=== PATIENT | female | born 1985 | race Caucasian/White ===

== ENCOUNTER → 2018-05-06 | Outpatient (CLI) | payer OTHER ==
[~2018-05-06] MED LIST: ACET325 PO; ACET650SUP; ALBU.083IS IH; ALBU2.5V5 NEB; ALBU3IS INH; ARTIFICIAL TEAR15 ML BOTHEYES; ARTTEAOPSO; ASPI81CH PO; AZIT250 PO; BACL10; BACL10 PO; BASAGLAR K100 UNIT/1 SC; BISA10S PR; BISACODYL PO; CALCA500CH PO; CALCAVITDA; CRANBERRY; CRANBERRY CAPSULE; CYCLOBENZAPRINE PO; Calcium + Vita1 EACH PO; DICL250 PO; DOC250 PT; DOCU100; DOCUSATE SODIUM; FEXO180; FEXPSEER; FIBE4P PO; FLUC150A PO; FURO40; Fruity C250 MG PO; GLYMET1.25 PO; HYDCHL25; Humalog100 UNIT/1 SC; INSR10I SC; INSULANPEN; LACT; LORA10ER PO; LORATIDINE PO; MEDR10 PO; METFORMIN PO; METO10SY PT; METR500; MIRALAX17 GM PO; MOM; MULVITMINF PO; Milk Of Ma400 MG/5 M PO; NITR100CA PO; NYSTATIN1 EAC1 TOP; Novolog100 UNIT/2 SC; OFLO.3OTSO AU; PARO10; POTCHL10ER; POTCHL20ER; SENN187 PO; SODPHOSO; TAZICEF IV; TOBDEXOPO BOTHEYES; TOBRAMYCIN IV; TRIA55OI; TRIAOIA; TUSSIN DM; VANCOMYCIN IV; WARF10 PT; XARELTO10 MG PO; [UNRECOGNIZED DRUG - OTHER]; [UNRECOGNIZED DRUG - OTHER] PO
[2018-05-06 10:56] LABS: Hematocrit 47.5 % (33.0-51.0); Hemoglobin 12.8 g/dL (11.5-16.0); Mean Corpuscular HGB 19.8 pg (26.0-34.0); Mean Corpuscular HGB Conc 26.9 g/dL (31.5-36.5); Mean Corpuscular Volume 73 fL (80-100); Platelet Count 327 K/mm3 (150-400); RDW Coefficient Variation 20.4 % (11.7-14.2); RDW Standard Deviation 49.9 fL (35.1-46.3); Red Blood Cell Count 6.47 M/mm3 (3.80-5.20); White Blood Cell Count 11.76 K/mm3 (4.00-11.30)
[2018-05-06 11:05] LABS: Anion Gap 9 mmol/L (6-16); Blood Urea Nitrogen 21 mg/dL (8-24); Bun/Creatinine Ratio 34.7 (12.0-20.0); CO2, Blood 28 mmol/L (21-32); Calcium, Blood 9.3 mg/dL (8.5-10.1); Chloride, Blood 111 mmol/L (98-108); Creatinine, Blood 0.61 mg/dL (0.40-1.00); Glomerular Filtration Rate >60 (60-); Glucose, Blood 437 mg/dL (70-99); Potassium, Blood 3.8 mmol/L (3.5-5.5); Sodium, Blood 148 mmol/L (136-145)
== END | disposition home or self-care (01) ==
LOC: LAB UVN 10:21 → EDSTATUS 15:15
PROVIDERS: Family Medicine
DX: I63.9 Cerebral infarction, unspecified (principal); D64.9 Anemia, unspecified; J06.9 Acute upper respiratory infection, unspecified
CPT/HCPCS: 80048; 85027

== ENCOUNTER → 2018-05-07 | Outpatient (CLI) | payer OTHER ==
[2018-05-07 09:54] LABS: Bilirubin, Urine Neg (Neg); Blood, Urine 1+ (Neg); Glucose Qualitative, Urine 4+ (Neg); Ketones, Urine Neg (Neg); Leukocyte Esterase, Urine 2+ (Neg); Nitrite, Urine Pos (Neg); Protein, Urine 1+ (Neg); Specific Gravity, Urine 1.015 (1.003-1.022); Urobilinogen, Urine NORM (Normal)
[2018-05-07 10:03] LABS: Appearance, Urine Cloudy (Clear); Color, Urine Yellow (P-Yellow)
[2018-05-07 10:04] LABS: White Blood Cells, Urine 25-50 /hpf (0-5)
[2018-05-07 10:05] LABS: Bacteria Many /hpf; Red Blood Cells, Urine 0-2 /hpf (0-2); Squamous Epithelial Cells Few /hpf (Few)
== END | disposition home or self-care (01) ==
LOC: LAB UVN 09:27 → EDSTATUS 15:17
PROVIDERS: Family Medicine
DX: N18.9 Chronic kidney disease, unspecified (principal)
CPT/HCPCS: 81001; 87077; 87086; 87186

== ENCOUNTER 2018-05-11 13:09 | Inpatient (IN) | payer OTHER ==
[~2018-05-11] VITALS: Ht 172.7 cm; Wt 94.5 kg
[~2018-05-11 13:09] MED LIST changes: -ACET325 PO; -ALBU2.5V5 NEB; -ARTIFICIAL TEAR15 ML BOTHEYES; -BASAGLAR K100 UNIT/1 SC; -BISA10S PR; -CYCLOBENZAPRINE PO; -Fruity C250 MG PO; -Humalog100 UNIT/1 SC; -INSR10I SC; -LORATIDINE PO; -MIRALAX17 GM PO; -Milk Of Ma400 MG/5 M PO; -NITR100CA PO; -NYSTATIN1 EAC1 TOP; -Novolog100 UNIT/2 SC; -XARELTO10 MG PO; -[UNRECOGNIZED DRUG - OTHER] PO
[2018-05-11] MEDS ORDERED: LORATIDINE PO (13:32)
[2018-05-11] MEDS ORDERED: ARTIFICIAL TEAR15 ML BOTHEYES (13:35)
[2018-05-11] MEDS ORDERED: CYCLOBENZAPRINE PO (13:36)
[2018-05-11] MEDS ORDERED: NITR100CA PO (13:37)
[2018-05-11] MEDS ORDERED: Fruity C250 MG PO (13:38)
[2018-05-11] MEDS ORDERED: ACET325 PO (13:38)
[2018-05-11] MEDS ORDERED: Milk Of Ma400 MG/5 M PO (13:39)
[2018-05-11] MEDS ORDERED: Novolog100 UNIT/2 SC (13:40)
[2018-05-11] MEDS ORDERED: [UNRECOGNIZED DRUG - OTHER] PO ×2 (13:41→18:10)
[2018-05-11] MEDS ORDERED: BASAGLAR K100 UNIT/1 SC (13:41)
[2018-05-11] MEDS ORDERED: Humalog100 UNIT/1 SC (13:44)
[2018-05-11 14:35] LABS: BASOPHILS ABSOLUTE AUTO 0.06 K/mm3 (0.00-0.23); BASOPHILS PERCENT AUTO 0 % (0-2); EOSINOPHILS ABSOLUTE AUTO 0.37 K/mm3 (0.00-0.68); EOSINOPHILS PERCENT AUTO 2 % (0-6); Hematocrit 45.7 % (33.0-51.0); Hemoglobin 12.4 g/dL (11.5-16.0); IMMATURE GRAN ABSOLUTE AUTO 0.06 K/mm3 (0.00-0.10); IMMATURE GRAN PERCENT AUTO 0 % (0-1); LYMPHOCYTES PERCENT AUTO 29 % (21-46); MONOCYTES ABSOLUTE AUTO 0.95 K/mm3 (0.16-1.47); MONOCYTES PERCENT AUTO 6 % (4-13); Mean Corpuscular HGB 19.9 pg (26.0-34.0); Mean Corpuscular HGB Conc 27.1 g/dL (31.5-36.5); Mean Corpuscular Volume 74 fL (80-100); Mean Platelet Volume 10.9 fL (9.1-12.4); NEUTROPHILS ABSOLUTE AUTO 10.17 K/mm3 (1.96-9.15); NEUTROPHILS PERCENT AUTO 62 % (41-73); Platelet Count 241 K/mm3 (150-400); RDW Coefficient Variation 20.1 % (11.7-14.2); RDW Standard Deviation 49.9 fL (35.1-46.3); Red Blood Cell Count 6.22 M/mm3 (3.80-5.20); White Blood Cell Count 16.41 K/mm3 (4.00-11.30)
[2018-05-11 15:12] LABS: Source, Urine Clean Catch
[2018-05-11 15:19] LABS: Alanine Aminotransfer (ALT/SGP 29 U/L (12-78); Albumin, Blood 3.1 g/dL (3.4-5.0); Albumin/Globulin Ratio 0.6 (0.8-1.8); Alk Phos 114 U/L (50-136); Anion Gap 12 mmol/L (6-16); Aspartate Aminotrans (AST/SGOT 18 U/L (12-37); Bilirubin, Total 0.2 mg/dL (0.1-1.0); Blood Urea Nitrogen 19 mg/dL (8-24); Bun/Creatinine Ratio 27.6 (12.0-20.0); CO2, Blood 25 mmol/L (21-32); Calcium, Blood 9.1 mg/dL (8.5-10.1); Chloride, Blood 113 mmol/L (98-108); Creatinine, Blood 0.69 mg/dL (0.40-1.00); Globulin, Blood 5.1 g/dL (2.2-4.0); Glomerular Filtration Rate >60 (60-); Glucose, Blood 421 mg/dL (70-99); Potassium, Blood 3.8 mmol/L (3.5-5.5); Sodium, Blood 150 mmol/L (136-145); Total Protein, Blood 8.2 g/dL (6.4-8.2)
[2018-05-11 15:33] LABS: Bilirubin, Urine Neg (Neg); Blood, Urine 2+ (Neg); Glucose Qualitative, Urine 4+ (Neg); Ketones, Urine 1+ (Neg); Leukocyte Esterase, Urine 2+ (Neg); Nitrite, Urine Neg (Neg); Protein, Urine 2+ (Neg); Urobilinogen, Urine NORM (Normal)
[2018-05-11 15:37] LABS: Appearance, Urine Hazy (Clear); Color, Urine Yellow (P-Yellow)
[2018-05-11 15:50] LABS: Bacteria Mod /hpf; Mucus Light (0-Heavy); Red Blood Cells, Urine 25-50 /hpf (0-2); Squamous Epithelial Cells Mod /hpf (Few)
[2018-05-11 15:51] LABS: White Blood Cells, Urine 25-50 /hpf (0-5)
[2018-05-11] MEDS ORDERED: BISA10S PR (18:08)
[2018-05-12 04:43] LABS: BASOPHILS ABSOLUTE AUTO 0.04 K/mm3 (0.00-0.23); BASOPHILS PERCENT AUTO 0 % (0-2); EOSINOPHILS PERCENT AUTO 4 % (0-6); Hematocrit 37.6 % (33.0-51.0); Hemoglobin 10.2 g/dL (11.5-16.0); IMMATURE GRAN ABSOLUTE AUTO 0.03 K/mm3 (0.00-0.10); IMMATURE GRAN PERCENT AUTO 0 % (0-1); LYMPHOCYTES ABSOLUTE AUTO 2.48 K/mm3 (0.84-5.20); LYMPHOCYTES PERCENT AUTO 20 % (21-46); MONOCYTES ABSOLUTE AUTO 0.58 K/mm3 (0.16-1.47); MONOCYTES PERCENT AUTO 5 % (4-13); Mean Corpuscular HGB 19.5 pg (26.0-34.0); Mean Corpuscular HGB Conc 27.1 g/dL (31.5-36.5); Mean Corpuscular Volume 72 fL (80-100); Mean Platelet Volume 10.4 fL (9.1-12.4); NEUTROPHILS ABSOLUTE AUTO 8.54 K/mm3 (1.96-9.15); NEUTROPHILS PERCENT AUTO 70 % (41-73); Platelet Count 218 K/mm3 (150-400); RDW Coefficient Variation 19.8 % (11.7-14.2); RDW Standard Deviation 48.5 fL (35.1-46.3); Red Blood Cell Count 5.23 M/mm3 (3.80-5.20); White Blood Cell Count 12.17 K/mm3 (4.00-11.30)
[2018-05-12 05:16] LABS: Anion Gap 8 mmol/L (6-16); Blood Urea Nitrogen 15 mg/dL (8-24); Bun/Creatinine Ratio 28.2 (12.0-20.0); CO2, Blood 28 mmol/L (21-32); Chloride, Blood 115 mmol/L (98-108); Creatinine, Blood 0.53 mg/dL (0.40-1.00); Glomerular Filtration Rate >60 (60-); Glucose, Blood 167 mg/dL (70-99); Potassium, Blood 3.3 mmol/L (3.5-5.5); Sodium, Blood 151 mmol/L (136-145)
[2018-05-12 17:27] LABS: Albumin, Blood 2.5 g/dL (3.4-5.0); Anion Gap 6 mmol/L (6-16); Blood Urea Nitrogen 9 mg/dL (8-24); Bun/Creatinine Ratio 15.9 (12.0-20.0); CO2, Blood 29 mmol/L (21-32); Calcium, Blood 8.9 mg/dL (8.5-10.1); Chloride, Blood 111 mmol/L (98-108); Creatinine, Blood 0.57 mg/dL (0.40-1.00); Glomerular Filtration Rate >60 (60-); Glucose, Blood 228 mg/dL (70-99); Phosphorus, Blood 2.4 mg/dL (2.5-4.9); Potassium, Blood 3.6 mmol/L (3.5-5.5); Sodium, Blood 146 mmol/L (136-145); Tobramycin, Random 0.5 ug/mL
[2018-05-12 17:34] LABS: Vancomycin, Trough 27.4 ug/mL (5.0-10.0)
[2018-05-13 05:10] LABS: BASOPHILS ABSOLUTE AUTO 0.03 K/mm3 (0.00-0.23); BASOPHILS PERCENT AUTO 0 % (0-2); EOSINOPHILS ABSOLUTE AUTO 0.58 K/mm3 (0.00-0.68); EOSINOPHILS PERCENT AUTO 6 % (0-6); Hematocrit 35.6 % (33.0-51.0); IMMATURE GRAN ABSOLUTE AUTO 0.03 K/mm3 (0.00-0.10); IMMATURE GRAN PERCENT AUTO 0 % (0-1); LYMPHOCYTES ABSOLUTE AUTO 3.15 K/mm3 (0.84-5.20); LYMPHOCYTES PERCENT AUTO 33 % (21-46); MONOCYTES ABSOLUTE AUTO 0.57 K/mm3 (0.16-1.47); MONOCYTES PERCENT AUTO 6 % (4-13); Mean Corpuscular HGB 20.2 pg (26.0-34.0); Mean Corpuscular HGB Conc 28.1 g/dL (31.5-36.5); Mean Corpuscular Volume 72 fL (80-100); NEUTROPHILS ABSOLUTE AUTO 5.13 K/mm3 (1.96-9.15); NEUTROPHILS PERCENT AUTO 54 % (41-73); Platelet Count 205 K/mm3 (150-400); RDW Coefficient Variation 19.5 % (11.7-14.2); RDW Standard Deviation 48.4 fL (35.1-46.3); Red Blood Cell Count 4.95 M/mm3 (3.80-5.20); White Blood Cell Count 9.49 K/mm3 (4.00-11.30)
[2018-05-13 05:26] LABS: Albumin, Blood 2.5 g/dL (3.4-5.0); Anion Gap 8 mmol/L (6-16); Blood Urea Nitrogen 7 mg/dL (8-24); Bun/Creatinine Ratio 13.1 (12.0-20.0); CO2, Blood 29 mmol/L (21-32); Calcium, Blood 8.6 mg/dL (8.5-10.1); Chloride, Blood 109 mmol/L (98-108); Creatinine, Blood 0.53 mg/dL (0.40-1.00); Glomerular Filtration Rate >60 (60-); Glucose, Blood 236 mg/dL (70-99); Potassium, Blood 3.5 mmol/L (3.5-5.5); Sodium, Blood 146 mmol/L (136-145)
[2018-05-13 05:32] LABS: Vancomycin, Random 12.5 ug/mL
[2018-05-13 15:34] LABS: Tobramycin, Random 0.9 ug/mL
[2018-05-14 05:37] LABS: BASOPHILS ABSOLUTE AUTO 0.03 K/mm3 (0.00-0.23); BASOPHILS PERCENT AUTO 0 % (0-2); EOSINOPHILS PERCENT AUTO 5 % (0-6); Hematocrit 35.6 % (33.0-51.0); Hemoglobin 10.3 g/dL (11.5-16.0); IMMATURE GRAN ABSOLUTE AUTO 0.02 K/mm3 (0.00-0.10); IMMATURE GRAN PERCENT AUTO 0 % (0-1); LYMPHOCYTES ABSOLUTE AUTO 2.26 K/mm3 (0.84-5.20); LYMPHOCYTES PERCENT AUTO 30 % (21-46); MONOCYTES PERCENT AUTO 7 % (4-13); Mean Corpuscular HGB 20.5 pg (26.0-34.0); Mean Corpuscular HGB Conc 28.9 g/dL (31.5-36.5); Mean Corpuscular Volume 71 fL (80-100); Mean Platelet Volume 9.8 fL (9.1-12.4); NEUTROPHILS ABSOLUTE AUTO 4.46 K/mm3 (1.96-9.15); NEUTROPHILS PERCENT AUTO 58 % (41-73); Platelet Count 182 K/mm3 (150-400); RDW Coefficient Variation 19.3 % (11.7-14.2); RDW Standard Deviation 46.7 fL (35.1-46.3); Red Blood Cell Count 5.02 M/mm3 (3.80-5.20); White Blood Cell Count 7.67 K/mm3 (4.00-11.30)
[2018-05-14 06:06] LABS: Anion Gap 8 mmol/L (6-16); Blood Urea Nitrogen 7 mg/dL (8-24); Bun/Creatinine Ratio 12.5 (12.0-20.0); CO2, Blood 26 mmol/L (21-32); Calcium, Blood 8.5 mg/dL (8.5-10.1); Chloride, Blood 109 mmol/L (98-108); Creatinine, Blood 0.56 mg/dL (0.40-1.00); Glomerular Filtration Rate >60 (60-); Glucose, Blood 235 mg/dL (70-99); Potassium, Blood 3.4 mmol/L (3.5-5.5); Sodium, Blood 143 mmol/L (136-145); Vancomycin, Trough 17.3 ug/mL (5.0-10.0)
[2018-05-15 06:55] LABS: BASOPHILS ABSOLUTE AUTO 0.03 K/mm3 (0.00-0.23); BASOPHILS PERCENT AUTO 0 % (0-2); EOSINOPHILS ABSOLUTE AUTO 0.23 K/mm3 (0.00-0.68); EOSINOPHILS PERCENT AUTO 2 % (0-6); Hematocrit 40.5 % (33.0-51.0); Hemoglobin 11.5 g/dL (11.5-16.0); IMMATURE GRAN ABSOLUTE AUTO 0.07 K/mm3 (0.00-0.10); IMMATURE GRAN PERCENT AUTO 1 % (0-1); LYMPHOCYTES PERCENT AUTO 21 % (21-46); MONOCYTES ABSOLUTE AUTO 0.62 K/mm3 (0.16-1.47); MONOCYTES PERCENT AUTO 7 % (4-13); Mean Corpuscular HGB 19.8 pg (26.0-34.0); Mean Corpuscular HGB Conc 28.4 g/dL (31.5-36.5); Mean Corpuscular Volume 70 fL (80-100); NEUTROPHILS ABSOLUTE AUTO 6.65 K/mm3 (1.96-9.15); NEUTROPHILS PERCENT AUTO 69 % (41-73); Platelet Count 159 K/mm3 (150-400); RDW Coefficient Variation 20.1 % (11.7-14.2); RDW Standard Deviation 45.8 fL (35.1-46.3); Red Blood Cell Count 5.82 M/mm3 (3.80-5.20)
[2018-05-15 07:01] LABS: Mean Platelet Volume 10.1 fL (9.1-12.4)
[2018-05-15 07:02] LABS: Anion Gap 10 mmol/L (6-16); Blood Urea Nitrogen 5 mg/dL (8-24); Bun/Creatinine Ratio 9.8 (12.0-20.0); CO2, Blood 23 mmol/L (21-32); Calcium, Blood 8.4 mg/dL (8.5-10.1); Chloride, Blood 108 mmol/L (98-108); Creatinine, Blood 0.51 mg/dL (0.40-1.00); Glomerular Filtration Rate >60 (60-); Glucose, Blood 260 mg/dL (70-99); Sodium, Blood 141 mmol/L (136-145)
[2018-05-15 20:57] LABS: Tobramycin, Trough 0.4 ug/mL (0.0-1.9)
[2018-05-15 22:34] LABS: BASOPHILS ABSOLUTE AUTO 0.03 K/mm3 (0.00-0.23); BASOPHILS PERCENT AUTO 0 % (0-2); EOSINOPHILS ABSOLUTE AUTO 0.11 K/mm3 (0.00-0.68); EOSINOPHILS PERCENT AUTO 1 % (0-6); Hematocrit 37.3 % (33.0-51.0); Hemoglobin 10.7 g/dL (11.5-16.0); IMMATURE GRAN ABSOLUTE AUTO 0.07 K/mm3 (0.00-0.10); IMMATURE GRAN PERCENT AUTO 1 % (0-1); LYMPHOCYTES ABSOLUTE AUTO 2.26 K/mm3 (0.84-5.20); LYMPHOCYTES PERCENT AUTO 19 % (21-46); MONOCYTES ABSOLUTE AUTO 0.93 K/mm3 (0.16-1.47); MONOCYTES PERCENT AUTO 8 % (4-13); Mean Corpuscular HGB 20.4 pg (26.0-34.0); Mean Corpuscular HGB Conc 28.7 g/dL (31.5-36.5); Mean Corpuscular Volume 71 fL (80-100); Mean Platelet Volume 9.9 fL (9.1-12.4); NEUTROPHILS ABSOLUTE AUTO 8.78 K/mm3 (1.96-9.15); NEUTROPHILS PERCENT AUTO 72 % (41-73); Platelet Count 212 K/mm3 (150-400); RDW Coefficient Variation 19.8 % (11.7-14.2); RDW Standard Deviation 47.2 fL (35.1-46.3); Red Blood Cell Count 5.24 M/mm3 (3.80-5.20); White Blood Cell Count 12.18 K/mm3 (4.00-11.30)
[2018-05-15 22:59] LABS: Anion Gap 8 mmol/L (6-16); Blood Urea Nitrogen 6 mg/dL (8-24); Bun/Creatinine Ratio 11.2 (12.0-20.0); CO2, Blood 27 mmol/L (21-32); Calcium, Blood 8.2 mg/dL (8.5-10.1); Chloride, Blood 105 mmol/L (98-108); Creatinine, Blood 0.54 mg/dL (0.40-1.00); Glomerular Filtration Rate >60 (60-); Glucose, Blood 192 mg/dL (70-99); Magnesium, Blood 1.6 mg/dL (1.6-2.4); Potassium, Blood 3.7 mmol/L (3.5-5.5); Sodium, Blood 140 mmol/L (136-145)
[2018-05-15 23:02] LABS: Thyroid Stimulating Hormone 0.515 uIU/mL (0.360-4.800)
[2018-05-16 05:30] LABS: Hematocrit 36.6 % (33.0-51.0); Hemoglobin 10.4 g/dL (11.5-16.0); Mean Corpuscular HGB 20.2 pg (26.0-34.0); Mean Corpuscular HGB Conc 28.4 g/dL (31.5-36.5); Mean Corpuscular Volume 71 fL (80-100); Mean Platelet Volume 10.3 fL (9.1-12.4); Platelet Count 218 K/mm3 (150-400); RDW Coefficient Variation 19.6 % (11.7-14.2); RDW Standard Deviation 47.6 fL (35.1-46.3); Red Blood Cell Count 5.15 M/mm3 (3.80-5.20); White Blood Cell Count 11.17 K/mm3 (4.00-11.30)
[2018-05-16 06:06] LABS: Anion Gap 10 mmol/L (6-16); Blood Urea Nitrogen 6 mg/dL (8-24); Bun/Creatinine Ratio 10.9 (12.0-20.0); CO2, Blood 25 mmol/L (21-32); Chloride, Blood 104 mmol/L (98-108); Creatinine, Blood 0.55 mg/dL (0.40-1.00); Glomerular Filtration Rate >60 (60-); Glucose, Blood 221 mg/dL (70-99); Potassium, Blood 3.8 mmol/L (3.5-5.5); Sodium, Blood 139 mmol/L (136-145)
[2018-05-17 05:04] LABS: BASOPHILS ABSOLUTE AUTO 0.04 K/mm3 (0.00-0.23); BASOPHILS PERCENT AUTO 0 % (0-2); EOSINOPHILS ABSOLUTE AUTO 0.32 K/mm3 (0.00-0.68); EOSINOPHILS PERCENT AUTO 3 % (0-6); Hematocrit 35.3 % (33.0-51.0); IMMATURE GRAN ABSOLUTE AUTO 0.04 K/mm3 (0.00-0.10); IMMATURE GRAN PERCENT AUTO 0 % (0-1); LYMPHOCYTES ABSOLUTE AUTO 3.01 K/mm3 (0.84-5.20); LYMPHOCYTES PERCENT AUTO 27 % (21-46); MONOCYTES ABSOLUTE AUTO 0.89 K/mm3 (0.16-1.47); MONOCYTES PERCENT AUTO 8 % (4-13); Mean Corpuscular HGB Conc 28.3 g/dL (31.5-36.5); Mean Corpuscular Volume 71 fL (80-100); Mean Platelet Volume 10.8 fL (9.1-12.4); NEUTROPHILS ABSOLUTE AUTO 6.81 K/mm3 (1.96-9.15); NEUTROPHILS PERCENT AUTO 61 % (41-73); Platelet Count 238 K/mm3 (150-400); RDW Coefficient Variation 20.1 % (11.7-14.2); RDW Standard Deviation 48.7 fL (35.1-46.3); Red Blood Cell Count 4.99 M/mm3 (3.80-5.20); White Blood Cell Count 11.11 K/mm3 (4.00-11.30)
[2018-05-17 05:28] LABS: Anion Gap 11 mmol/L (6-16); Blood Urea Nitrogen 8 mg/dL (8-24); Bun/Creatinine Ratio 14.3 (12.0-20.0); CO2, Blood 24 mmol/L (21-32); Calcium, Blood 7.8 mg/dL (8.5-10.1); Chloride, Blood 105 mmol/L (98-108); Creatinine, Blood 0.56 mg/dL (0.40-1.00); Glomerular Filtration Rate >60 (60-); Glucose, Blood 244 mg/dL (70-99); Potassium, Blood 3.6 mmol/L (3.5-5.5); Sodium, Blood 140 mmol/L (136-145)
[2018-05-18 17:33] LABS: Tobramycin, Random 0.6 ug/mL; Vancomycin, Trough 24.6 ug/mL (5.0-10.0)
[2018-05-19 04:50] LABS: BASOPHILS ABSOLUTE AUTO 0.05 K/mm3 (0.00-0.23); BASOPHILS PERCENT AUTO 0 % (0-2); EOSINOPHILS ABSOLUTE AUTO 0.31 K/mm3 (0.00-0.68); EOSINOPHILS PERCENT AUTO 3 % (0-6); Hematocrit 35.9 % (33.0-51.0); Hemoglobin 10.2 g/dL (11.5-16.0); IMMATURE GRAN ABSOLUTE AUTO 0.05 K/mm3 (0.00-0.10); IMMATURE GRAN PERCENT AUTO 0 % (0-1); LYMPHOCYTES ABSOLUTE AUTO 2.94 K/mm3 (0.84-5.20); LYMPHOCYTES PERCENT AUTO 26 % (21-46); MONOCYTES ABSOLUTE AUTO 0.76 K/mm3 (0.16-1.47); MONOCYTES PERCENT AUTO 7 % (4-13); Mean Corpuscular HGB 20.2 pg (26.0-34.0); Mean Corpuscular HGB Conc 28.4 g/dL (31.5-36.5); Mean Corpuscular Volume 71 fL (80-100); Mean Platelet Volume 10.1 fL (9.1-12.4); NEUTROPHILS ABSOLUTE AUTO 7.21 K/mm3 (1.96-9.15); NEUTROPHILS PERCENT AUTO 64 % (41-73); Platelet Count 282 K/mm3 (150-400); RDW Standard Deviation 49.1 fL (35.1-46.3); Red Blood Cell Count 5.05 M/mm3 (3.80-5.20); White Blood Cell Count 11.32 K/mm3 (4.00-11.30)
[2018-05-19 05:12] LABS: Anion Gap 11 mmol/L (6-16); Blood Urea Nitrogen 6 mg/dL (8-24); Bun/Creatinine Ratio 10.4 (12.0-20.0); CO2, Blood 25 mmol/L (21-32); Calcium, Blood 8.5 mg/dL (8.5-10.1); Chloride, Blood 107 mmol/L (98-108); Creatinine, Blood 0.58 mg/dL (0.40-1.00); Glomerular Filtration Rate >60 (60-); Glucose, Blood 208 mg/dL (70-99); Potassium, Blood 3.5 mmol/L (3.5-5.5); Sodium, Blood 143 mmol/L (136-145)
[2018-05-20 05:07] LABS: BASOPHILS ABSOLUTE AUTO 0.05 K/mm3 (0.00-0.23); BASOPHILS PERCENT AUTO 0 % (0-2); EOSINOPHILS ABSOLUTE AUTO 0.11 K/mm3 (0.00-0.68); EOSINOPHILS PERCENT AUTO 1 % (0-6); Hemoglobin 10.5 g/dL (11.5-16.0); IMMATURE GRAN ABSOLUTE AUTO 0.05 K/mm3 (0.00-0.10); IMMATURE GRAN PERCENT AUTO 0 % (0-1); LYMPHOCYTES ABSOLUTE AUTO 5.13 K/mm3 (0.84-5.20); LYMPHOCYTES PERCENT AUTO 41 % (21-46); MONOCYTES ABSOLUTE AUTO 1.07 K/mm3 (0.16-1.47); MONOCYTES PERCENT AUTO 9 % (4-13); Mean Corpuscular HGB Conc 28.4 g/dL (31.5-36.5); Mean Corpuscular Volume 71 fL (80-100); Mean Platelet Volume 10.2 fL (9.1-12.4); NEUTROPHILS ABSOLUTE AUTO 6.22 K/mm3 (1.96-9.15); NEUTROPHILS PERCENT AUTO 49 % (41-73); Platelet Count 281 K/mm3 (150-400); RDW Coefficient Variation 20.1 % (11.7-14.2); RDW Standard Deviation 49.1 fL (35.1-46.3); Red Blood Cell Count 5.25 M/mm3 (3.80-5.20); White Blood Cell Count 12.63 K/mm3 (4.00-11.30)
[2018-05-20 05:28] LABS: Anion Gap 9 mmol/L (6-16); Blood Urea Nitrogen 14 mg/dL (8-24); Bun/Creatinine Ratio 18.5 (12.0-20.0); CO2, Blood 29 mmol/L (21-32); Calcium, Blood 8.8 mg/dL (8.5-10.1); Chloride, Blood 109 mmol/L (98-108); Creatinine, Blood 0.76 mg/dL (0.40-1.00); Glomerular Filtration Rate >60 (60-); Glucose, Blood 173 mg/dL (70-99); Potassium, Blood 3.4 mmol/L (3.5-5.5); Sodium, Blood 147 mmol/L (136-145)
[2018-05-21 04:56] LABS: BASOPHILS ABSOLUTE AUTO 0.04 K/mm3 (0.00-0.23); BASOPHILS PERCENT AUTO 0 % (0-2); EOSINOPHILS ABSOLUTE AUTO 0.33 K/mm3 (0.00-0.68); EOSINOPHILS PERCENT AUTO 3 % (0-6); Hematocrit 36.3 % (33.0-51.0); IMMATURE GRAN ABSOLUTE AUTO 0.03 K/mm3 (0.00-0.10); IMMATURE GRAN PERCENT AUTO 0 % (0-1); LYMPHOCYTES ABSOLUTE AUTO 3.98 K/mm3 (0.84-5.20); LYMPHOCYTES PERCENT AUTO 36 % (21-46); MONOCYTES ABSOLUTE AUTO 0.83 K/mm3 (0.16-1.47); MONOCYTES PERCENT AUTO 7 % (4-13); Mean Corpuscular HGB 20.1 pg (26.0-34.0); Mean Corpuscular HGB Conc 27.5 g/dL (31.5-36.5); Mean Corpuscular Volume 73 fL (80-100); Mean Platelet Volume 10.4 fL (9.1-12.4); NEUTROPHILS ABSOLUTE AUTO 5.98 K/mm3 (1.96-9.15); NEUTROPHILS PERCENT AUTO 53 % (41-73); Platelet Count 263 K/mm3 (150-400); RDW Coefficient Variation 19.8 % (11.7-14.2); RDW Standard Deviation 50.7 fL (35.1-46.3); Red Blood Cell Count 4.98 M/mm3 (3.80-5.20); White Blood Cell Count 11.19 K/mm3 (4.00-11.30)
[2018-05-21 05:23] LABS: Anion Gap 8 mmol/L (6-16); Blood Urea Nitrogen 15 mg/dL (8-24); Bun/Creatinine Ratio 21.7 (12.0-20.0); CO2, Blood 30 mmol/L (21-32); Chloride, Blood 110 mmol/L (98-108); Creatinine, Blood 0.69 mg/dL (0.40-1.00); Glomerular Filtration Rate >60 (60-); Glucose, Blood 145 mg/dL (70-99); Potassium, Blood 3.2 mmol/L (3.5-5.5); Sodium, Blood 148 mmol/L (136-145)
[2018-05-21] MEDS ORDERED: ALBU2.5V5 NEB (10:14)
[2018-05-21] MEDS ORDERED: MIRALAX17 GM PO (10:14)
[2018-05-21] MEDS ORDERED: NYSTATIN1 EAC1 TOP (10:16)
[2018-05-21] MEDS ORDERED: INSR10I SC (10:16)
[2018-05-21] MEDS ORDERED: XARELTO10 MG PO (10:17)
== END 2018-05-21 14:42 | DRG 871 ==
LOC: ER 13:09 → PCU 16:25 → MEDS 05-13 16:10 → EDPENDDIS 05-21 10:32 → ENPENDDIS 05-21 10:32 → MEDS 05-21 14:42
PROVIDERS: Emergency Medicine; Family Medicine; Internal Medicine; Nurse Practitioner Acute Care; Pharmacist
DX: A41.9 Sepsis, unspecified organism (principal); J18.9 Pneumonia, unspecified organism; G92 Toxic encephalopathy; N39.0 Urinary tract infection, site not specified; E87.0 Hyperosmolality and hypernatremia; R65.20 Severe sepsis without septic shock; Z87.820 Personal history of traumatic brain injury; E66.9 Obesity, unspecified; E11.65 Type 2 diabetes mellitus with hyperglycemia; E87.6 Hypokalemia; D64.9 Anemia, unspecified; Z86.14 Personal history of Methicillin resistant Staphylococcus aureus infection; Z68.31 Body mass index [BMI] 31.0-31.9, adult
CPT/HCPCS: 36415; 51701; 70450; 71046; 80048; 80053; 80069; 80200; 80202; 81001; 81025; 82565; 82947; 83605; 83735; 84145; 84443; 85025; 85027; 87040; 87086; 93005; 93010; 93971; 94760; 96365; 96375; 99285-25; J0692; J1650; J1815; J2543; J3260; J3370; J3480; J7030; J7050; J7120

== ENCOUNTER → 2018-06-14 | Outpatient (CLI) | payer OTHER ==
[~2018-06-14] MED LIST changes: +ACET325 PO; +ALBU2.5V5 NEB; +ARTIFICIAL TEAR15 ML BOTHEYES; +BASAGLAR K100 UNIT/1 SC; +BISA10S PR; +CYCLOBENZAPRINE PO; +Fruity C250 MG PO; +Humalog100 UNIT/1 SC; +INSR10I SC; +LORATIDINE PO; +MIRALAX17 GM PO; +Milk Of Ma400 MG/5 M PO; +NITR100CA PO; +NYSTATIN1 EAC1 TOP; +Novolog100 UNIT/2 SC; +XARELTO10 MG PO; +[UNRECOGNIZED DRUG - OTHER] PO
[2018-06-14 07:21] LABS: Source, Urine Catheter
[2018-06-14 07:39] LABS: Bilirubin, Urine Neg (Neg); Blood, Urine 5+ (Neg); Glucose Qualitative, Urine Neg (Neg); Ketones, Urine Neg (Neg); Leukocyte Esterase, Urine 1+ (Neg); Nitrite, Urine Neg (Neg); Protein, Urine 1+ (Neg); Urobilinogen, Urine NORM (Normal); pH, Urine 6.5 (5.0-8.0)
[2018-06-14 07:50] LABS: Appearance, Urine Clear (Clear); Color, Urine Yellow (P-Yellow)
[2018-06-14 07:51] LABS: Red Blood Cells, Urine TNTC /hpf (0-2); Squamous Epithelial Cells Few /hpf (Few)
[2018-06-14 07:52] LABS: Bacteria Few /hpf; Mucus Light (0-Heavy)
== END | disposition home or self-care (01) ==
LOC: LAB UVN 07:17 → EDSTATUS 09:28
PROVIDERS: Family Medicine
DX: N39.0 Urinary tract infection, site not specified (principal)
CPT/HCPCS: 81001; 87086

== ENCOUNTER → 2018-06-26 | Outpatient (CLI) | payer OTHER ==
[2018-06-27 08:13] LABS: Source, Urine Clean Catch
[2018-06-27 08:41] LABS: Bilirubin, Urine Neg (Neg); Blood, Urine 2+ (Neg); Glucose Qualitative, Urine Neg (Neg); Ketones, Urine Neg (Neg); Leukocyte Esterase, Urine 3+ (Neg); Nitrite, Urine Pos (Neg); Protein, Urine 2+ (Neg); Specific Gravity, Urine 1.015 (1.003-1.022); Urobilinogen, Urine NORM (Normal)
[2018-06-27 08:50] LABS: Appearance, Urine Hazy (Clear); Color, Urine Yellow (P-Yellow)
[2018-06-27 08:51] LABS: Bacteria Many /hpf; White Blood Cells, Urine TNTC /hpf (0-5)
[2018-06-27 08:52] LABS: Transitional Epithelial Cells Rare /hpf (0-Rare)
[2018-06-27 08:53] LABS: Squamous Epithelial Cells Mod /hpf (Few)
== END | disposition home or self-care (01) ==
LOC: LAB UVN 08:12 → EDSTATUS 11:19
PROVIDERS: Family Medicine
DX: N39.0 Urinary tract infection, site not specified (principal)
CPT/HCPCS: 81001; 87077; 87086; 87186

== ENCOUNTER → 2018-07-09 | Outpatient (CLI) | payer OTHER ==
[2018-07-09 12:53] LABS: Bilirubin, Urine Neg (Neg); Blood, Urine 3+ (Neg); Glucose Qualitative, Urine Neg (Neg); Ketones, Urine Neg (Neg); Leukocyte Esterase, Urine 3+ (Neg); Nitrite, Urine Pos (Neg); Protein, Urine 2+ (Neg); Specific Gravity, Urine 1.005 (1.003-1.022); Urobilinogen, Urine NORM (Normal)
[2018-07-09 12:59] LABS: Appearance, Urine Clear (Clear); Color, Urine Yellow (P-Yellow)
[2018-07-09 13:00] LABS: Bacteria Many /hpf; Squamous Epithelial Cells Few /hpf (Few); White Blood Cells, Urine TNTC /hpf (0-5)
== END | disposition home or self-care (01) ==
LOC: EDSTATUS 10:03 → LAB UVN 12:34
PROVIDERS: Family Medicine
DX: N39.0 Urinary tract infection, site not specified (principal)
CPT/HCPCS: 81001; 87077; 87086; 87186

== ENCOUNTER → 2019-03-05 | Outpatient (CLI) | payer OTHER ==
[2019-03-05 11:34] LABS: Hematocrit 41.1 % (33.0-51.0); Hemoglobin 12.1 g/dL (11.5-16.0); Mean Corpuscular HGB 22.4 pg (26.0-34.0); Mean Corpuscular HGB Conc 29.4 g/dL (31.5-36.5); Mean Corpuscular Volume 76 fL (80-100); Mean Platelet Volume 9.6 fL (9.1-12.4); Platelet Count 200 K/mm3 (150-400); RDW Coefficient Variation 17.9 % (11.7-14.2); RDW Standard Deviation 48.9 fL (35.1-46.3); Red Blood Cell Count 5.39 M/mm3 (3.80-5.20); White Blood Cell Count 9.07 K/mm3 (4.00-11.30)
[2019-03-06 00:08] LABS: Bilirubin, Urine Neg (Neg); Blood, Urine 5+ (Neg); Glucose Qualitative, Urine Neg (Neg); Ketones, Urine Neg (Neg); Leukocyte Esterase, Urine Neg (Neg); Nitrite, Urine Neg (Neg); Protein, Urine 2+ (Neg); Urobilinogen, Urine NORM (Normal)
[2019-03-06 00:15] LABS: Appearance, Urine Clear (Clear); Color, Urine Yellow (P-Yellow)
[2019-03-06 00:16] LABS: Bacteria Not Seen /hpf; Red Blood Cells, Urine TNTC /hpf (0-2); Squamous Epithelial Cells Rare /hpf (Few); White Blood Cells, Urine Not Seen /hpf (0-5)
[2019-03-06 04:08] LABS: Adenovirus Not Detected (NOT DETECT); Bordetella pertussis Not Detected (NOT DETECT); Chlamydophila pneumoniae Not Detected (NOT DETECT); Coronavirus 229E Not Detected (NOT DETECT); Coronavirus HKU1 Not Detected (NOT DETECT); Coronavirus NL63 Not Detected (NOT DETECT); Coronavirus OC43 Detected (NOT DETECT); Human Metapneumovirus Not Detected (NOT DETECT); Human Rhinovirus/Enterovirus Not Detected (NOT DETECT); Influenza A Not Detected (NOT DETECT); Influenza A/2009-H1 Not Detected (NOT DETECT); Influenza A/H1 Not Detected (NOT DETECT); Influenza A/H3 Not Detected (NOT DETECT); Influenza B Not Detected (NOT DETECT); Mycoplasma pneumoniae Not Detected (NOT DETECT); Parainfluenza Virus 1 Not Detected (NOT DETECT); Parainfluenza Virus 2 Not Detected (NOT DETECT); Parainfluenza Virus 3 Not Detected (NOT DETECT); Parainfluenza Virus 4 Not Detected (NOT DETECT); Respiratory Syncytial Virus Not Detected (NOT DETECT)
== END | disposition home or self-care (01) ==
LOC: EDSTATUS 10:26 → LAB UVN 11:28
PROVIDERS: Nurse Practitioner Family
DX: I63.9 Cerebral infarction, unspecified (principal); D64.9 Anemia, unspecified
CPT/HCPCS: 81001; 85027; 87086; 87486; 87581; 87633; 87798

== ENCOUNTER → 2019-05-19 | Outpatient (CLI) | payer OTHER ==
[~2019-05-19] MED LIST changes: +ASCO500 PO; +CALCIUM 600 +1 EA11 PO; +CLARITIN10 MG PO; +CYCL10 PO; +Cyclobenzaprine5 MG PO; +Dulcolax5 MG PO; +FERSU300 PO; +Fleet Enema132 ML PR; +Flonase 0.05% N16 GM; +GENTEAL TEARS 015 M1 BOTHEYES; +Glucophage1000 MG PO; +LEVO750 PO; +LIQUACEL LIQUID30 ML PO; -METFORMIN PO; +Phillips'400 MG/5 M PO; +XARELTO1 EACH PO
== END | disposition home or self-care (01) ==
LOC: LAB SHORT 17:52 → LAB 17:52
DX: R21 Rash and other nonspecific skin eruption (principal); Z86.14 Personal history of Methicillin resistant Staphylococcus aureus infection
CPT/HCPCS: 87081

== ENCOUNTER 2019-07-04 03:28 | Observation (INO) | payer OTHER ==
[~2019-07-04] VITALS: Ht 172.7 cm; Wt 113.4 kg
[~2019-07-04 03:28] MED LIST changes: -ASCO500 PO; -CALCIUM 600 +1 EA11 PO; -CLARITIN10 MG PO; -CYCL10 PO; -Cyclobenzaprine5 MG PO; -Dulcolax5 MG PO; -FERSU300 PO; -Fleet Enema132 ML PR; -Flonase 0.05% N16 GM; -GENTEAL TEARS 015 M1 BOTHEYES; -LEVO750 PO; -LIQUACEL LIQUID30 ML PO; -Phillips'400 MG/5 M PO; -XARELTO1 EACH PO
[2019-07-04] MEDS ORDERED: CYCL10 PO (03:57)
[2019-07-04] MEDS ORDERED: FERSU300 PO (03:59)
[2019-07-04] MEDS ORDERED: Flonase 0.05% N16 GM (03:59)
[2019-07-04] MEDS ORDERED: CLARITIN10 MG PO (04:02)
[2019-07-04 04:23] LABS: Source, Urine Catheter
[2019-07-04 04:27] LABS: Bilirubin, Urine Neg (Neg); Blood, Urine 3+ (Neg); Glucose Qualitative, Urine Neg (Neg); Ketones, Urine Neg (Neg); Leukocyte Esterase, Urine 1+ (Neg); Nitrite, Urine Neg (Neg); Protein, Urine 2+ (Neg); Specific Gravity, Urine 1.015 (1.003-1.022); Urobilinogen, Urine NORM (Normal)
[2019-07-04 04:28] LABS: Appearance, Urine Clear (Clear); Color, Urine Yellow (P-Yellow)
[2019-07-04 04:41] LABS: Amorphous Light ({null, 0-Heavy}); Bacteria Few /hpf; Squamous Epithelial Cells Few /hpf (Few)
[2019-07-04 05:09] LABS: BASOPHILS ABSOLUTE AUTO 0.04 K/mm3 (0.00-0.23); BASOPHILS PERCENT AUTO 0 % (0-2); EOSINOPHILS ABSOLUTE AUTO 0.01 K/mm3 (0.00-0.68); EOSINOPHILS PERCENT AUTO 0 % (0-6); Hematocrit 42.8 % (33.0-51.0); Hemoglobin 12.5 g/dL (11.5-16.0); IMMATURE GRAN ABSOLUTE AUTO 0.14 K/mm3 (0.00-0.10); IMMATURE GRAN PERCENT AUTO 1 % (0-1); LYMPHOCYTES ABSOLUTE AUTO 1.47 K/mm3 (0.84-5.20); LYMPHOCYTES PERCENT AUTO 7 % (21-46); MONOCYTES ABSOLUTE AUTO 0.56 K/mm3 (0.16-1.47); MONOCYTES PERCENT AUTO 3 % (4-13); Mean Corpuscular HGB 20.7 pg (26.0-34.0); Mean Corpuscular HGB Conc 29.2 g/dL (31.5-36.5); Mean Corpuscular Volume 71 fL (80-100); Mean Platelet Volume 8.4 fL (9.1-12.4); NEUTROPHILS ABSOLUTE AUTO 20.44 K/mm3 (1.96-9.15); NEUTROPHILS PERCENT AUTO 90 % (41-73); Platelet Count 134 K/mm3 (150-400); RDW Coefficient Variation 19.4 % (11.7-14.2); RDW Standard Deviation 45.5 fL (35.1-46.3); Red Blood Cell Count 6.05 M/mm3 (3.80-5.20); White Blood Cell Count 22.66 K/mm3 (4.00-11.30)
[2019-07-04 05:25] LABS: International Normalized Ratio 1.05; Prothrombin Time Results 11.1 Sec (9.7-11.5)
[2019-07-04 05:30] LABS: Alanine Aminotransfer (ALT/SGP 31 U/L (12-78); Albumin, Blood 3.2 g/dL (3.4-5.0); Albumin/Globulin Ratio 0.6 (0.8-1.8); Alk Phos 123 U/L (50-136); Anion Gap 8 mmol/L (6-16); Aspartate Aminotrans (AST/SGOT 18 U/L (12-37); Bilirubin, Total 0.4 mg/dL (0.1-1.0); Blood Urea Nitrogen 10 mg/dL (8-24); Bun/Creatinine Ratio 16.6 (12.0-20.0); CO2, Blood 25 mmol/L (21-32); Calcium, Blood 9.6 mg/dL (8.5-10.1); Chloride, Blood 104 mmol/L (98-108); Globulin, Blood 5.4 g/dL (2.2-4.0); Glomerular Filtration Rate >60 (60-); Glucose, Blood 174 mg/dL (70-99); Potassium, Blood 3.9 mmol/L (3.5-5.5); Sodium, Blood 137 mmol/L (136-145); Total Protein, Blood 8.6 g/dL (6.4-8.2)
--- NOTE | 2019-07-04 13:47 | NUR ---
PT TO ICU 5 FROM ER AT 1220 TO AWAIT BED AT [facility] FOR SURGERY, REPORT FROM KULWANT CAO. TEMP 101.4, HR 130'S - 140'S SIT, OTHER VSS. ICE PACKS TO GROIN AND UNDER ARMS, NS INFUSING AT 100ML/HR. ASSESSMENT COMPLETED, PT AWAKE AND ALERT, DENIES PAIN AT THIS TIME, USES A WINK TO COMMUNICATE "YES." GRANDPARENTS AT BEDSIDE TO ASSIST WITH CARE AND INTERPRETATION OF PT'S NONVERBAL CUES. PT ON MENSES, ATTENDS ON, HAD A LARGE VOID IN BEDPAN. BED ASSIGNMENT RECEIVED FROM [facility], [facility] NOTIFIED OF TRANSFER, REPORT CALLED TO KULWANT SHAH. TYLENOL ADMINISTERED FOR TEMP PER DR. MURILLO, NS CONTINUES TO INFUSE. LOVENOX HELD FOR IMPENDING SURGERY. PT TRANSFERRED AT 1345 TO [facility] VIA [facility], GRANDPARENTS TO FOLLOW PT TO HOSPITAL VIA POV. VS UNCHANGED.
== END 2019-07-04 13:45 | disposition home or self-care (01) ==
LOC: ER 03:28 → ICUW 03:29 → ICUE 12:10
PROVIDERS: Emergency Medicine; ADMIT Internal Medicine
DX: A41.9 Sepsis, unspecified organism (principal); N13.6 Pyonephrosis; E11.9 Type 2 diabetes mellitus without complications; F44.4 Conversion disorder with motor symptom or deficit; E66.9 Obesity, unspecified; Z86.73 Personal history of transient ischemic attack (TIA), and cerebral infarction without residual deficits; Z87.01 Personal history of pneumonia (recurrent); Z86.14 Personal history of Methicillin resistant Staphylococcus aureus infection; Z16.24 Resistance to multiple antibiotics; Z79.899 Other long term (current) drug therapy; Z79.51 Long term (current) use of inhaled steroids; Z79.4 Long term (current) use of insulin; Z88.2 Allergy status to sulfonamides; Z68.38 Body mass index [BMI] 38.0-38.9, adult
CPT/HCPCS: 36415; 71045; 74177; 80053; 81001; 82947; 83605; 85025; 85610; 85730; 87040; 87086; 87147; 93005; 93010; 96361; 96365-59; 96366; 96367; 96368; 99285-25; G0378; J0696; J2185; J3370; J7030; J7050; P9612; Q9967

== ENCOUNTER 2019-07-24 15:35 | Inpatient (IN) | payer OTHER ==
[~2019-07-24] VITALS: Ht 167.6 cm; Wt 93.6 kg
[~2019-07-24 15:35] MED LIST changes: +CLARITIN10 MG PO; +CYCL10 PO; +FERSU300 PO; +Flonase 0.05% N16 GM
[2019-07-24] MEDS ORDERED: XARELTO1 EACH PO (16:02)
[2019-07-24 16:50] LABS: BASOPHILS ABSOLUTE AUTO 0.09 K/mm3 (0.00-0.23); BASOPHILS PERCENT AUTO 1 % (0-2); EOSINOPHILS ABSOLUTE AUTO 0.41 K/mm3 (0.00-0.68); EOSINOPHILS PERCENT AUTO 2 % (0-6); Hematocrit 34.6 % (33.0-51.0); Hemoglobin 9.9 g/dL (11.5-16.0); IMMATURE GRAN ABSOLUTE AUTO 0.08 K/mm3 (0.00-0.10); IMMATURE GRAN PERCENT AUTO 0 % (0-1); LYMPHOCYTES ABSOLUTE AUTO 4.42 K/mm3 (0.84-5.20); LYMPHOCYTES PERCENT AUTO 24 % (21-46); MONOCYTES ABSOLUTE AUTO 0.82 K/mm3 (0.16-1.47); MONOCYTES PERCENT AUTO 4 % (4-13); Mean Corpuscular HGB 21.2 pg (26.0-34.0); Mean Corpuscular HGB Conc 28.6 g/dL (31.5-36.5); Mean Corpuscular Volume 74 fL (80-100); Mean Platelet Volume 9.3 fL (9.1-12.4); NEUTROPHILS ABSOLUTE AUTO 12.95 K/mm3 (1.96-9.15); NEUTROPHILS PERCENT AUTO 69 % (41-73); Platelet Count 332 K/mm3 (150-400); RDW Coefficient Variation 20.2 % (11.7-14.2); RDW Standard Deviation 52.6 fL (35.1-46.3); Red Blood Cell Count 4.68 M/mm3 (3.80-5.20); White Blood Cell Count 18.77 K/mm3 (4.00-11.30)
[2019-07-24 16:52] LABS: Source, Urine Catheter
[2019-07-24 17:01] LABS: Appearance, Urine Hazy (Clear); Bilirubin, Urine Neg (Neg); Blood, Urine 5+ (Neg); Color, Urine Yellow (P-Yellow); Glucose Qualitative, Urine Neg (Neg); Ketones, Urine Neg (Neg); Leukocyte Esterase, Urine 2+ (Neg); Nitrite, Urine Neg (Neg); Protein, Urine 1+ (Neg); Urobilinogen, Urine NORM (Normal)
[2019-07-24 17:06] LABS: International Normalized Ratio 1.3; Prothrombin Time Results 13.5 Sec (9.7-11.5)
[2019-07-24 17:13] LABS: Bacteria Mod /hpf; Red Blood Cells, Urine 25-50 /hpf (0-2); Squamous Epithelial Cells Mod /hpf (Few)
[2019-07-24 17:19] LABS: Alanine Aminotransfer (ALT/SGP 16 U/L (12-78); Albumin, Blood 2.6 g/dL (3.4-5.0); Albumin/Globulin Ratio 0.4 (0.8-1.8); Alk Phos 119 U/L (50-136); Anion Gap 6 mmol/L (6-16); Aspartate Aminotrans (AST/SGOT 10 U/L (12-37); Bilirubin, Total 0.4 mg/dL (0.1-1.0); Blood Urea Nitrogen 10 mg/dL (8-24); Bun/Creatinine Ratio 18.7 (12.0-20.0); CO2, Blood 28 mmol/L (21-32); Calcium, Blood 9.6 mg/dL (8.5-10.1); Chloride, Blood 105 mmol/L (98-108); Creatinine, Blood 0.53 mg/dL (0.40-1.00); Globulin, Blood 5.9 g/dL (2.2-4.0); Glomerular Filtration Rate >60 (60-); Glucose, Blood 139 mg/dL (70-99); Potassium, Blood 3.8 mmol/L (3.5-5.5); Sodium, Blood 139 mmol/L (136-145); Total Protein, Blood 8.5 g/dL (6.4-8.2)
--- NOTE | 2019-07-24 21:40 | NUR ---
PT ARRIVED TO ICU 5 FROM ER MEDICAL ADMIT. PT IS ACCOMPANIED BY [employer] STAFF OFFICER AND GRANDMOTHER JOSE. PT IS NON VERBAL AT BASELINE. SHE COMMUNICATES BY BLINKING HER EYE'S. L EYE IS YES AND R EYE IS NO. PT HAS GROSS MOVEMENT OF ARMS. LEGS ARE FLACCID. NECK IS TILTED TO THE L. PER GRANDMOTHER PT LIVES AT [facility]. PT HAS OPEN PRESSURE ULCER TO L BUTTOCKS AND HAS A SPIT AT COCCYX. WOUND PHOTOS WERE OBTAINED. CLEANSED WITH WOUND SPRAY AND PLACED MEPILEX DRESSING OVER PRESSURE ULCER. WILL OBTAIN MRSA SWABS FOR CLEARING PROTOCOL.
[2019-07-24] MEDS ORDERED: LIQUACEL LIQUID30 ML PO (23:07)
[2019-07-24] MEDS ORDERED: CALCIUM 600 +1 EA11 PO (23:11)
[2019-07-24] MEDS ORDERED: Phillips'400 MG/5 M PO (23:14)
[2019-07-24] MEDS ORDERED: Cyclobenzaprine5 MG PO (23:20)
[2019-07-24] MEDS ORDERED: ASCO500 PO (23:20)
[2019-07-24] MEDS ORDERED: Dulcolax5 MG PO (23:23)
[2019-07-24] MEDS ORDERED: CYCL10 PO (23:25)
[2019-07-24] MEDS ORDERED: Fleet Enema132 ML PR (23:26)
[2019-07-24] MEDS ORDERED: Milk Of Ma400 MG/5 M PO (23:28)
[2019-07-24] MEDS ORDERED: GENTEAL TEARS 015 M1 BOTHEYES (23:28)
--- NOTE | 2019-07-25 01:15 | NUR ---
PT IS RETAINING URINE. PT HAS TRIED TO USE THE BEDPAN MULTIPLE TIMES BUT UNABLE TO GO. BLADDER SCAN SHOWS GREATER THAN 450ML. CALLED DR. FRY WHO ORDERED DUMONT CATH.
[2019-07-25 01:53] LABS: Source, Urine Catheter
[2019-07-25 01:58] LABS: Bilirubin, Urine Neg (Neg); Blood, Urine 4+ (Neg); Glucose Qualitative, Urine Neg (Neg); Ketones, Urine Neg (Neg); Leukocyte Esterase, Urine 1+ (Neg); Nitrite, Urine Neg (Neg); Protein, Urine Neg (Neg); Urobilinogen, Urine NORM (Normal)
[2019-07-25 02:05] LABS: Appearance, Urine Hazy (Clear); Color, Urine Yellow (P-Yellow)
[2019-07-25 02:06] LABS: Bacteria Few /hpf; Red Blood Cells, Urine TNTC /hpf (0-2); Squamous Epithelial Cells Few /hpf (Few)
[2019-07-25 03:42] LABS: BASOPHILS ABSOLUTE AUTO 0.05 K/mm3 (0.00-0.23); BASOPHILS PERCENT AUTO 0 % (0-2); EOSINOPHILS PERCENT AUTO 3 % (0-6); Hematocrit 32.3 % (33.0-51.0); Hemoglobin 9.1 g/dL (11.5-16.0); IMMATURE GRAN ABSOLUTE AUTO 0.05 K/mm3 (0.00-0.10); IMMATURE GRAN PERCENT AUTO 0 % (0-1); LYMPHOCYTES ABSOLUTE AUTO 3.12 K/mm3 (0.84-5.20); LYMPHOCYTES PERCENT AUTO 20 % (21-46); MONOCYTES PERCENT AUTO 4 % (4-13); Mean Corpuscular HGB 20.3 pg (26.0-34.0); Mean Corpuscular HGB Conc 28.2 g/dL (31.5-36.5); Mean Corpuscular Volume 72 fL (80-100); Mean Platelet Volume 9.3 fL (9.1-12.4); NEUTROPHILS ABSOLUTE AUTO 11.56 K/mm3 (1.96-9.15); NEUTROPHILS PERCENT AUTO 73 % (41-73); Platelet Count 291 K/mm3 (150-400); RDW Coefficient Variation 20.1 % (11.7-14.2); Red Blood Cell Count 4.49 M/mm3 (3.80-5.20); White Blood Cell Count 15.78 K/mm3 (4.00-11.30)
[2019-07-25 04:10] LABS: Anion Gap 7 mmol/L (6-16); Blood Urea Nitrogen 9 mg/dL (8-24); CO2, Blood 27 mmol/L (21-32); Calcium, Blood 9.2 mg/dL (8.5-10.1); Chloride, Blood 103 mmol/L (98-108); Creatinine, Blood 0.56 mg/dL (0.40-1.00); Glomerular Filtration Rate >60 (60-); Glucose, Blood 199 mg/dL (70-99); Potassium, Blood 3.9 mmol/L (3.5-5.5); Sodium, Blood 137 mmol/L (136-145)
--- NOTE | 2019-07-25 05:53 | NUR ---
SUMMARY PT RESTING IN BED. NO CHANGE IN STATUS SINCE ARRIVAL TO ICU.
--- NOTE | 2019-07-25 11:29 | NUR ---
PT ASSESSED THIS AM AT 0715. PT AWAKE AND ALERT AND AT BASELINE PER GRANDMOTHER. PT ABLE TO COMMUNICATE VIA BLINKING. PT SMILING AND PLAYFUL. DENIES C/O PAIN. JULIA ABARCA PATENT. PT A FEEDER AND ATE 75% OF BREAKFAST; CARLSO WELL. VSS.
--- NOTE | 2019-07-25 15:30 | NUR ---
PT C/O PAIN TO BOTTOM AREA; THERE IS AN OPEN PRESSURE WOUND TO THE BUTTOCKS WITH DRESSING THAT IS C/D/I AND AN OPEN AREA IN THE CRACK OF THE GLUTEAL FOLD. PT COMMUNICATES THAT THE TYLENOL DID NOT HELP WITH HER PAIN. DR DAVILA CALLED; TRAMADOL ORDERED AND GIVEN. GRANDMOTHER AT BEDSIDE. PT ALSO REPOSITIONED FOR COMFORT.
--- NOTE | 2019-07-25 17:03 | NUR ---
PT SATS 87-88% ON RA. PT AWAKE AND DENIES SOB. NEW FINE CRACKLES TO RLL NOTED. PT PLACED ON 2L VIA N/C AND IS SATURATING 96%. DR DAVILA NOTIFIED; FLUIDS DC'D. GRANDMOTHER REMAINS AT BEDSIDE.
--- NOTE | 2019-07-25 18:46 | NUR ---
PT'S GRANDMOTHER FED PT 100% OF DINNER. PT SAT IN HIGH FOWLERS FOR MEAL AND TOLERATED MEAL WELL. SATS 96-99% ON 2L;CONT PULSE OX ON PT. 800CC CLEAR YELLOW URINE FOR THIS SHIFT.
--- NOTE | 2019-07-25 21:10 | NUR ---
PT RESTING IN BED. MOANS AND USES BLINKING OF EITHER L EYE OR R EYE FOR YES OR NO. PT IS A LITTLE DROWSY TONIGHT. SAYS SHE FEELS CRUMMY. PT FEELS WARM BUT DOES NOT HAVE A TEMP. GRANDMOTHER AT BEDSIDE REQUESTED TYLENOL DUE TO PT SPIKING FEVERS QUICKLY. PT HAS CONTRACTURES TO HANDS BUT DOES HAVE GROSS MOVEMENT OF ARMS AND ALSO LEGS. PT IS AT BASELINE FOR MENTATION MOVEMENT.
[2019-07-26 04:18] LABS: BASOPHILS ABSOLUTE AUTO 0.06 K/mm3 (0.00-0.23); BASOPHILS PERCENT AUTO 1 % (0-2); EOSINOPHILS ABSOLUTE AUTO 0.44 K/mm3 (0.00-0.68); EOSINOPHILS PERCENT AUTO 4 % (0-6); Hematocrit 32.2 % (33.0-51.0); Hemoglobin 8.8 g/dL (11.5-16.0); IMMATURE GRAN ABSOLUTE AUTO 0.05 K/mm3 (0.00-0.10); IMMATURE GRAN PERCENT AUTO 0 % (0-1); LYMPHOCYTES ABSOLUTE AUTO 3.09 K/mm3 (0.84-5.20); LYMPHOCYTES PERCENT AUTO 25 % (21-46); MONOCYTES ABSOLUTE AUTO 0.48 K/mm3 (0.16-1.47); MONOCYTES PERCENT AUTO 4 % (4-13); Mean Corpuscular HGB Conc 27.3 g/dL (31.5-36.5); Mean Corpuscular Volume 73 fL (80-100); Mean Platelet Volume 9.2 fL (9.1-12.4); NEUTROPHILS ABSOLUTE AUTO 8.09 K/mm3 (1.96-9.15); NEUTROPHILS PERCENT AUTO 66 % (41-73); Platelet Count 291 K/mm3 (150-400); RDW Coefficient Variation 20.1 % (11.7-14.2); RDW Standard Deviation 51.9 fL (35.1-46.3); Red Blood Cell Count 4.41 M/mm3 (3.80-5.20); White Blood Cell Count 12.21 K/mm3 (4.00-11.30)
[2019-07-26 04:36] LABS: Albumin, Blood 2.2 g/dL (3.4-5.0); Anion Gap 2 mmol/L (6-16); Blood Urea Nitrogen 10 mg/dL (8-24); CO2, Blood 31 mmol/L (21-32); Calcium, Blood 8.7 mg/dL (8.5-10.1); Chloride, Blood 107 mmol/L (98-108); Creatinine, Blood 0.77 mg/dL (0.40-1.00); Glomerular Filtration Rate >60 (60-); Glucose, Blood 144 mg/dL (70-99); Phosphorus, Blood 4.2 mg/dL (2.5-4.9); Potassium, Blood 3.9 mmol/L (3.5-5.5); Sodium, Blood 140 mmol/L (136-145)
--- NOTE | 2019-07-26 06:26 | NUR ---
SUMMARY PT RESTING IN BED. SLEPT BETTER TONIGHT. AROUSES EASILY TO VOICE. WENT UP ON 02 DURING THE NIGHT WHEN PT WAS SLEEPING TO 4L VIA NC. PT WOULD DESAT TO 88% WHILE SLEEPING AND IT TENDS TO BE WORSE WHEN SHE IS LAYING ON HER R SIDE. NO OTHER CHANGES.
--- NOTE | 2019-07-26 07:17 | NUR ---
ASSUMED CARE REPORT FROM KULWANT YEBOAH. NPO UNTIL SPEECH EVALUATION COMPLETE. IN CONTACT ISOLATION FOR HX OF MRSA
--- NOTE | 2019-07-26 14:40 | NUR ---
AKILA AT BEDSIDE. SHE REPORTS THAT PATIENT HAD A SWALLOW EVAL A COUPLE OF WEEKS AGO. SHE DOES NOT BELIEVE PATIENT IS ASPIRATING. PATIENT WILL REMAIN NPO UNTIL CLEARED BY SPEECH TERAPY.
--- NOTE | 2019-07-26 21:22 | NUR ---
PT NOTED WITH SATS AT 85% WITH OXYGEN AT 6 L/MIN VIA NC, HOB ELEVATED, SATS INCREASED TO 93% WITHOUT INCREASE IN OXYGEN AT THIS TIME
[2019-07-27 04:07] LABS: Hematocrit 30.1 % (33.0-51.0); Hemoglobin 8.3 g/dL (11.5-16.0); Mean Corpuscular HGB 20.4 pg (26.0-34.0); Mean Corpuscular HGB Conc 27.6 g/dL (31.5-36.5); Mean Corpuscular Volume 74 fL (80-100); Mean Platelet Volume 9.2 fL (9.1-12.4); Platelet Count 266 K/mm3 (150-400); RDW Coefficient Variation 19.7 % (11.7-14.2); RDW Standard Deviation 52.8 fL (35.1-46.3); Red Blood Cell Count 4.07 M/mm3 (3.80-5.20); White Blood Cell Count 12.47 K/mm3 (4.00-11.30)
[2019-07-27 04:27] LABS: BAND PERCENT MAN 4 % (0-8); BASOPHILS PERCENT MAN 0 % (0-2); EOSINOPHILS ABSOLUTE MAN 0.37 K/mm3 (0.00-0.68); EOSINOPHILS PERCENT MAN 3 % (0-6); LYMPHOCYTES ABSOLUTE MAN 3.49 K/mm3 (0.84-5.20); LYMPHOCYTES PERCENT MAN 28 % (21-46); MONOCYTES ABSOLUTE MAN 0.87 K/mm3 (0.16-1.47); MONOCYTES PERCENT MAN 7 % (4-13); NEUTROPHILS ABSOLUTE MAN 7.73 K/mm3 (1.96-9.15); SEG NEUTROPHILS PERCENT MAN 58 % (41-73); TOTAL CELLS COUNTED 100
[2019-07-27 04:30] LABS: Albumin, Blood 2.2 g/dL (3.4-5.0); Anion Gap 6 mmol/L (6-16); Blood Urea Nitrogen 10 mg/dL (8-24); Bun/Creatinine Ratio 16.8 (12.0-20.0); CO2, Blood 27 mmol/L (21-32); Calcium, Blood 8.4 mg/dL (8.5-10.1); Chloride, Blood 108 mmol/L (98-108); Glomerular Filtration Rate >60 (60-); Glucose, Blood 143 mg/dL (70-99); Percent Saturation 8.5 % (15.0-50.0); Phosphorus, Blood 3.1 mg/dL (2.5-4.9); Potassium, Blood 3.7 mmol/L (3.5-5.5); Sodium, Blood 141 mmol/L (136-145)
--- NOTE | 2019-07-27 06:14 | NUR ---
PT RESTS QUIETLY THROUGHOUT SHIFT, CONTINUES TO DESAT WITH POSITIONING ON RIGHT SIDE HOWEVER DOES MAINTAIN SATS GREATER THAN 90% WITH OXYGEN AT 4 L/MIN VIA NC THIS AM HOB ELEVATED. IS ABLE TO MINIMALLY ASSIST WITH TURNS TO THE RIGHT SIDE WHICH IS REPORTED HER PREFERRED SIDE BY HER GRANDMOTHER. LUNGS CONTINUE TO INTERMITTENTLY HAVE EXPIRATORY WHEEZES WITH COARSE CRACKLES IN BILATERAL BASES. OTHERWISE NO ACUTE CHANGES THIS SHIFT.
--- NOTE | 2019-07-27 07:25 | NUR ---
ASSUMED CARE REPORT FROM KULWANT WADE. PATIENT SLEEPING. IN DROPLET AND CONTACT ISOLATION FOR MRSA. WILL REMAIN NPO UNTIL SPEECH THERAPY CLEARS TO EAT.
--- NOTE | 2019-07-27 10:33 | NUR ---
PATIENT FED EGGS AND CREAM OF WHEAT. EMPHATICALLY REFUSED APPLESAUCE. SMALL SIPS OF MILK WITH SPOON. HOB LEFT AT 45 DEGREES AFTER EATING. NO COUGHING WHILE EATING, BUT IS COUGHING OCCASIONALLY WHILE SITTING UP. HEAD FALLS FORWARD WHILE SITTING UP AND IS ABLE TO MANAGE HER SECRETIONS BETTER WITH HEAD TOWARD CHEST
--- NOTE | 2019-07-27 10:52 | NUR ---
MD VISIT DR. DAVILA IN. PLAN IS TO DISCHARGE HER TOMORROW. WILL KEEP DUMONT IN FOR NOW TO PROTECT BUTTOCKS WOUND. MUPIRICIN OINTMENT ORDERED FOR WOUND THAT IS POSITIVE FOR MRSA
--- NOTE | 2019-07-27 17:48 | NUR ---
REPORT GIVEN TO KULWANT GLASS. PATIENT MOVED IN BED TO 326 BY ASSAYER HELPER
--- NOTE | 2019-07-27 18:08 | NUR ---
SHIFT SUMMARY. 1744 PT ARRIVED TO MEDICAL FLOOR VIA BED, PT TRANSFERED TO MEDICAL FLOOR BED WITH 4 STAFF AND SLIDER SHEET. IV PATENT. PT DENIES PAIN. GRANDMOTHER AT BEDSIDE.
--- NOTE | 2019-07-27 18:12 | NUR ---
LATE ENTRY. REPORT RECIEVED PRIOR TO TRANSFER FROM [facility]ATE, BUYER TOBACCO HEAD.
[2019-07-28 04:51] LABS: BASOPHILS ABSOLUTE AUTO 0.03 K/mm3 (0.00-0.23); BASOPHILS PERCENT AUTO 0 % (0-2); EOSINOPHILS ABSOLUTE AUTO 0.55 K/mm3 (0.00-0.68); EOSINOPHILS PERCENT AUTO 4 % (0-6); Hematocrit 31.4 % (33.0-51.0); Hemoglobin 8.6 g/dL (11.5-16.0); IMMATURE GRAN ABSOLUTE AUTO 0.08 K/mm3 (0.00-0.10); IMMATURE GRAN PERCENT AUTO 1 % (0-1); LYMPHOCYTES ABSOLUTE AUTO 3.13 K/mm3 (0.84-5.20); LYMPHOCYTES PERCENT AUTO 23 % (21-46); MONOCYTES ABSOLUTE AUTO 0.52 K/mm3 (0.16-1.47); MONOCYTES PERCENT AUTO 4 % (4-13); Mean Corpuscular HGB Conc 27.4 g/dL (31.5-36.5); Mean Corpuscular Volume 73 fL (80-100); Mean Platelet Volume 9.3 fL (9.1-12.4); NEUTROPHILS ABSOLUTE AUTO 9.63 K/mm3 (1.96-9.15); NEUTROPHILS PERCENT AUTO 69 % (41-73); Platelet Count 289 K/mm3 (150-400); RDW Coefficient Variation 19.9 % (11.7-14.2); RDW Standard Deviation 51.8 fL (35.1-46.3); Red Blood Cell Count 4.29 M/mm3 (3.80-5.20); White Blood Cell Count 13.94 K/mm3 (4.00-11.30)
--- NOTE | 2019-07-28 04:56 | NUR ---
SHIFT SUMMARY PT IS NONVERBAL, RESPONDS TO QUESTIONS APPROP USING A WINKING METHOD (LEFT EYE-YES, RIGHT EYE-NO). NYSTAGMUS NOTED. BASELINE MENTATION. BUE WEAK AND CONTRACTURED, BLE NEARLY FLACCID WITH ABILITY TO WIGGLE TOES. PT ON 4L VIA NC DURING THE NIGHT, RA DURING DAY; BASELINE. DUMONT IN PLACE FOR RETENTION, PATENT AND DRAINING DARK YELLOW URINE. Q2H TURNS, Q2H ORAL CARE DONE. ASP PRECAUTIONS IN PLACE; ADMINISTERED PM MEDS CRUSHED IN CHOCOLATE PUDDING. PT SLEEPS OFF/ON, OCCASIONALLY MOANS AND WHIMPERS IN BED BUT DENIES PAIN WHEN ASKED. PRN SUCTIONING FOR THICK SECRETIONS AND POOR ABILITY TO CLEAR SECRETIONS. PLAN TO D/C BACK TO [facility] TODAY, WILL CONT TO MONITOR AND PROVIDE CARE UNTIL PRESUMED BY ONCOMING RN.
[2019-07-28 05:09] LABS: Albumin, Blood 2.3 g/dL (3.4-5.0); Anion Gap 6 mmol/L (6-16); Blood Urea Nitrogen 9 mg/dL (8-24); CO2, Blood 25 mmol/L (21-32); Calcium, Blood 8.5 mg/dL (8.5-10.1); Chloride, Blood 107 mmol/L (98-108); Creatinine, Blood 0.53 mg/dL (0.40-1.00); Glomerular Filtration Rate >60 (60-); Glucose, Blood 164 mg/dL (70-99); Phosphorus, Blood 2.3 mg/dL (2.5-4.9); Potassium, Blood 3.6 mmol/L (3.5-5.5); Sodium, Blood 138 mmol/L (136-145)
--- NOTE | 2019-07-28 18:57 | NUR ---
SHIFT SUMMARY. PT IS ALERT, ANSWERS Y/N QUESTIONS APPROPRIATELY WITH BLINKING L FOR YES, R FOR NO. PT DENIES PAIN, SOB, N/V. GOOD PO INTAKE. DRESSING TO L BUTTOCK CHANGED TODAY WITH MEDICATION APPLICATION. CXR COMPLETED, SPUTUM CX SENT TO LAB. GRANDMOTHER AT BEDSIDE AT THIS TIME. PT IS 3RD DAY NO BM. BOWEL CARE TO BEGIN, PT HAS SAT ON BED DIMAS TWICE THIS SHIFT WITH NO RESULTS.
[2019-07-29 05:19] LABS: BASOPHILS ABSOLUTE AUTO 0.06 K/mm3 (0.00-0.23); BASOPHILS PERCENT AUTO 1 % (0-2); EOSINOPHILS ABSOLUTE AUTO 0.69 K/mm3 (0.00-0.68); EOSINOPHILS PERCENT AUTO 6 % (0-6); Hemoglobin 8.9 g/dL (11.5-16.0); IMMATURE GRAN ABSOLUTE AUTO 0.06 K/mm3 (0.00-0.10); IMMATURE GRAN PERCENT AUTO 1 % (0-1); LYMPHOCYTES ABSOLUTE AUTO 2.15 K/mm3 (0.84-5.20); LYMPHOCYTES PERCENT AUTO 19 % (21-46); MONOCYTES ABSOLUTE AUTO 0.55 K/mm3 (0.16-1.47); MONOCYTES PERCENT AUTO 5 % (4-13); Mean Corpuscular HGB 20.1 pg (26.0-34.0); Mean Corpuscular HGB Conc 27.8 g/dL (31.5-36.5); Mean Corpuscular Volume 72 fL (80-100); Mean Platelet Volume 9.6 fL (9.1-12.4); NEUTROPHILS ABSOLUTE AUTO 7.63 K/mm3 (1.96-9.15); NEUTROPHILS PERCENT AUTO 69 % (41-73); Platelet Count 299 K/mm3 (150-400); RDW Coefficient Variation 19.8 % (11.7-14.2); RDW Standard Deviation 51.4 fL (35.1-46.3); Red Blood Cell Count 4.42 M/mm3 (3.80-5.20); White Blood Cell Count 11.14 K/mm3 (4.00-11.30)
--- NOTE | 2019-07-29 05:52 | NUR ---
SHIFT SUMMARY SUPPOSITORY GIVEN TONIGHT, PT HAD ONE LARGE FORMED BM. CONTINENT ON BED DIMAS. ON 4L VIA NC AT NIGHT, RA DURING DAY; BASELINE. THICK WHITE ORAL SECRETIONS, POOR SWALLOW, SUCTIONING PRN. Q2H TURNS/REPOSITIONING COMPLETE. DECUB TO L BUTTOCK, DRESSING CHANGED AND OINTMENT APPLIED PER EMAR. PT IS NONVERBAL, AT BASELINE MENTATION. VSS, AFEBRILE. WILL CONT TO MONITOR AND PROVIDE CARE UNTIL PRESUMED BY ONCOMING RN.
--- NOTE | 2019-07-29 08:55 | NUR ---
[facility] DOES NOT HAVE A CHRONIC CATHETER. DUMONT PLACED AT HOSPITAL FOR RETENTION. PER DR GIOVANNI DUMONT PRIOR TO DISCHARGE AND HAVE [facility] MONITOR. WILL NOTIFY THEM UPON REPORT. JULIA CHESTER.
[2019-07-29] MEDS ORDERED: LEVO750 PO (09:19)
--- NOTE | 2019-07-29 09:22 | NUR ---
REPORT CALLED TO BISI AT [facility].
--- NOTE | 2019-07-29 09:35 | NUR ---
PER RN AT [facility], PT TAKES XARELTO FOR HX OF CVA'S. RN ALSO NOTIFIED THAT IV WENT BAD THIS AM, THEY WILL START ORAL DAILY LEVAQUIN TODAY.
--- NOTE | 2019-07-29 11:27 | NUR ---
PT DISCHARGED TO [facility] VIA RECLINING WHEELCHAIR AND TRANSPORT AT 11:25. GRANDMOTHER AND [facility] NOTIFIED.
== END 2019-07-29 11:20 | DRG 871 ==
LOC: ER 15:35 → ERHOLD 20:37 → ICUE 21:42 → MEDS 07-27 17:46
PROVIDERS: Emergency Medicine; Family Medicine; ADMIT Internal Medicine
DX: A41.9 Sepsis, unspecified organism (principal); J96.01 Acute respiratory failure with hypoxia; J69.0 Pneumonitis due to inhalation of food and vomit; E27.49 Other adrenocortical insufficiency; Z87.820 Personal history of traumatic brain injury; E11.9 Type 2 diabetes mellitus without complications; Z79.4 Long term (current) use of insulin; D63.8 Anemia in other chronic diseases classified elsewhere; L98.419 Non-pressure chronic ulcer of buttock with unspecified severity; N20.0 Calculus of kidney; F44.4 Conversion disorder with motor symptom or deficit; Z86.73 Personal history of transient ischemic attack (TIA), and cerebral infarction without residual deficits
CPT/HCPCS: 36415; 51703; 71045; 71046; 74176; 80048; 80053; 80069; 81001; 82607; 82728; 82746; 82947; 83036; 83540; 83550; 83605; 84145; 85025; 85610; 85730; 87040; 87070; 87081; 87086; 87205; 92526; 92610; 93005; 93010; 94760; 96361; 96365; 96367; 99285-25; A9270; J0696; J1650; J1815; J2185; J3370; J7030; J7050; J7120; P9612

== ENCOUNTER 2019-08-09 23:36 | Observation (INO) | payer OTHER ==
[~2019-08-09] VITALS: Ht 172.7 cm; Wt 100.6 kg
[~2019-08-09 23:36] MED LIST changes: +ASCO500 PO; +CALCIUM 600 +1 EA11 PO; +Cyclobenzaprine5 MG PO; +Dulcolax5 MG PO; +Fleet Enema132 ML PR; +GENTEAL TEARS 015 M1 BOTHEYES; +LEVO750 PO; +LIQUACEL LIQUID30 ML PO; +Phillips'400 MG/5 M PO; +XARELTO1 EACH PO
[2019-08-09 23:56] LABS: BASOPHILS ABSOLUTE AUTO 0.09 K/mm3 (0.00-0.23); BASOPHILS PERCENT AUTO 1 % (0-2); EOSINOPHILS ABSOLUTE AUTO 0.56 K/mm3 (0.00-0.68); EOSINOPHILS PERCENT AUTO 4 % (0-6); Hematocrit 33.6 % (33.0-51.0); Hemoglobin 9.6 g/dL (11.5-16.0); IMMATURE GRAN ABSOLUTE AUTO 0.04 K/mm3 (0.00-0.10); IMMATURE GRAN PERCENT AUTO 0 % (0-1); LYMPHOCYTES ABSOLUTE AUTO 5.77 K/mm3 (0.84-5.20); LYMPHOCYTES PERCENT AUTO 37 % (21-46); MONOCYTES ABSOLUTE AUTO 0.71 K/mm3 (0.16-1.47); MONOCYTES PERCENT AUTO 5 % (4-13); Mean Corpuscular HGB 20.2 pg (26.0-34.0); Mean Corpuscular HGB Conc 28.6 g/dL (31.5-36.5); Mean Corpuscular Volume 71 fL (80-100); Mean Platelet Volume 9.2 fL (9.1-12.4); NEUTROPHILS ABSOLUTE AUTO 8.45 K/mm3 (1.96-9.15); NEUTROPHILS PERCENT AUTO 54 % (41-73); Platelet Count 287 K/mm3 (150-400); RDW Coefficient Variation 19.9 % (11.7-14.2); RDW Standard Deviation 50.2 fL (35.1-46.3); Red Blood Cell Count 4.75 M/mm3 (3.80-5.20); White Blood Cell Count 15.62 K/mm3 (4.00-11.30)
[2019-08-10 00:12] LABS: Alanine Aminotransfer (ALT/SGP 16 U/L (12-78); Albumin, Blood 2.6 g/dL (3.4-5.0); Albumin/Globulin Ratio 0.5 (0.8-1.8); Alk Phos 108 U/L (50-136); Anion Gap 7 mmol/L (6-16); Aspartate Aminotrans (AST/SGOT 11 U/L (12-37); Bilirubin, Total 0.2 mg/dL (0.1-1.0); Blood Urea Nitrogen 9 mg/dL (8-24); Bun/Creatinine Ratio 14.6 (12.0-20.0); CO2, Blood 26 mmol/L (21-32); Calcium, Blood 8.8 mg/dL (8.5-10.1); Chloride, Blood 104 mmol/L (98-108); Creatinine, Blood 0.62 mg/dL (0.40-1.00); Globulin, Blood 5.3 g/dL (2.2-4.0); Glomerular Filtration Rate >60 (60-); Glucose, Blood 225 mg/dL (70-99); Sodium, Blood 137 mmol/L (136-145); Total Protein, Blood 7.9 g/dL (6.4-8.2)
--- NOTE | 2019-08-10 05:25 | NUR ---
ADMISSION NOTE/SHIFT SUMMARY PT ARRIVED TO UNIT VIA STRECTHER AND 4-PERS SLIDE TRANSFER TO BED. LIFT RM FOR LATER TRANSFERS. WOUND TO L BUTTOCK CLEANSED AND DRESSED WITH MEPILEX; SEE PHOTO DOCUMENTATION. FAMILY REQUESTS PT NOT BE PLACED IN ATTENDS, BUT RATHER ON A PAD SO URINE IS NOT "SETTING RIGHT ON THE SKIN". PT PLACED ON 2L VIA NC, BASELINE RA. LS DIM T/O. BASELINE MENTATION. NS RUNNING @ 150ML/HR X1 BAG ONLY. SCDS ON. WILL CONT TO MONITOR AND PROVIDE CARE UNTIL PRESUMED BY ONCOMING RN.
[2019-08-10 11:26] LABS: BASOPHILS ABSOLUTE AUTO 0.08 K/mm3 (0.00-0.23); BASOPHILS PERCENT AUTO 1 % (0-2); EOSINOPHILS PERCENT AUTO 3 % (0-6); Hematocrit 34.5 % (33.0-51.0); Hemoglobin 9.8 g/dL (11.5-16.0); IMMATURE GRAN ABSOLUTE AUTO 0.05 K/mm3 (0.00-0.10); IMMATURE GRAN PERCENT AUTO 0 % (0-1); LYMPHOCYTES ABSOLUTE AUTO 3.94 K/mm3 (0.84-5.20); LYMPHOCYTES PERCENT AUTO 31 % (21-46); MONOCYTES ABSOLUTE AUTO 0.63 K/mm3 (0.16-1.47); MONOCYTES PERCENT AUTO 5 % (4-13); Mean Corpuscular HGB Conc 28.4 g/dL (31.5-36.5); Mean Corpuscular Volume 70 fL (80-100); NEUTROPHILS ABSOLUTE AUTO 7.59 K/mm3 (1.96-9.15); NEUTROPHILS PERCENT AUTO 60 % (41-73); RDW Coefficient Variation 20.2 % (11.7-14.2); RDW Standard Deviation 50.2 fL (35.1-46.3); White Blood Cell Count 12.69 K/mm3 (4.00-11.30)
[2019-08-10 11:52] LABS: Mean Platelet Volume 9.4 fL (9.1-12.4); Platelet Count 155 K/mm3 (150-400)
--- NOTE | 2019-08-10 14:42 | NUR ---
Pt visit this afternoon. Pt is resting in bed upon arrival. Pt is not able to respond when spoken with. Verbal groaning noted with wet sound to it. Saliva drooling out of mouth noted. Nistagmus noted as well. Spoke with bedside nurse Lottie and discussed case. Spoke with ST Lopez and discussed case. Discussed performing modified barrium swallow test for family to view Pt's inability to swallow safely. Spoke with Dr Woods and discussed case. Dr Woods reports offering modified barrium swallow and Pt's grandmother denied need. Plan is for therpeutic discussion with family to help establish appropriate goals of care. Palliative Care will remain available.
--- NOTE | 2019-08-10 17:29 | NUR ---
SHIFT SUMMARY PT AWAKE DURING SHIFT REPORT. NONVERBAL PARAPLEGIC, BUT ABLE TO BLINK TO ANS SIMPLE YES NO QUESTIONS. DR MURILLO NOTIFIED FOR ORDERS THIS AM. SP TX TO RM, BUT ALREADY SEEN PT LESS THAN 2 WEEKS AGO FOR SAME SITUATION. DISCUSSED WITH DR MURILLO. PT'S GRANDMOTHER CALLED FOR UPDATE SEVERAL TIMES. REFUSED TO ALLOW ANOTHER SWALLOW EVAL, EVEN THOUGH PT ASP SECRETIONS. FAMILY REFUSING TUBE FEEDING, WHICH WOULD NOT SOLVE PROBLEM OF SECRETION ASP. PALLATIVE CARE RN'S TO SEE PT AND AGAIN TO TALK WITH GRANDPARENTS. GRANDPARENTS IN DENIAL OF PT'S PROGRESS. HX OF TRAUMATIC BRAIN INJURY AND LATER CVA. GROSS MOVEMENTS WITH L ARM ONLY. MRSA CLEARANCE CX'S OBTAINED AND SENT. WOUND TO BUTTOCKS CLEANED PRIOR TO CX BEING OBTAINED. NEW MEPILEX APPLIED X2. BIOX CHECKED THRU OUT THE DAY AND REMAINED AT LEAST 94% ON RA. PT HAS BEEN MOSTLY INCONTINENT OF URINE, THOUGH PLACED ON BEDPAN MULTIPLE TIMES THRU OUT THE DAY. TOUCH CALL LT IN REACH. PT ABLE TO USE. GRANDPARENTS AT BS AT THIS TIME.
--- NOTE | 2019-08-10 19:35 | NUR ---
Called to meet with patients grandparents regarding plan of care and NPO status. They are very devoted to her longevity and quality of life. They have expressed to this teletypewriter installer on previous admissions their particular beliefs and plan and will not waver. They expressed anger at her being NPO and asked that speech not see her again. The expressed frustration with the hospital and care. We carefully reviewed the topics of chronic debility and pneumonia and the risks. After they exspressed their stress they where then able to relay that the past few months have been rough with her care. They state she went to [facility] to get stenting of her kidney. They state she has had more discomfort and less function since the procedure. We then reviewed pain and symptoms and how deconditioning effects ventilation, swallowing and movement. They want her to have more mobility. They demonstated great understanding of the risks of aspiration and infection with chronic wounds, UTI's and apiration of secretions. Patients dental health is moderate and dental care may be extremly difficult to manage and is also a potential source of chronic infection. Advised them that we will respect their wishes but we must provide ethical care and safe care. Pt was able to participate in conversation and we would stop when she expressed herself and would ask her what she thinks. She can blink and nod. Patient has a good communication board on her wheelchair tray at [facility]. Family relays that they bring her to dining [facility] and carefully feed her it is also a big part of her social experience. They would like her discharged back to [facility]. Suggested to them that if she needs further hospitalization they may consider going back to [place] for care. At this time they want to continue care within the community. Questioned them on who is the provider that knows her best and helps them plan her future care needs as she changes. They stated Doctor FELICIANO, After reviewing her swallow and posture and ventilation they feel she may need more rehab again. Reenforced one more time the risks of feeding. They understand they are confident she can rehab and take po in her environment and recover. Advised I will update Hospitalist and request discharge with PT/OT and speech. Palliative care will send Dr Feliciano our note for follow up with family. Will suggest they complete an advance directive with the lead case manager at [place]. Consult conducted in accordance with [facility] ethical precepts 3, 28. of repecting the patients and decision makers wishes, And informing them of medical and ethic risks. Plan at this time is NPO. Goal is that [place] and doctor FELICIANO will accept return to facility and familys plan of care.
[2019-08-11 06:30] LABS: BASOPHILS ABSOLUTE AUTO 0.07 K/mm3 (0.00-0.23); BASOPHILS PERCENT AUTO 1 % (0-2); EOSINOPHILS PERCENT AUTO 3 % (0-6); Hematocrit 32.7 % (33.0-51.0); Hemoglobin 9.3 g/dL (11.5-16.0); IMMATURE GRAN ABSOLUTE AUTO 0.07 K/mm3 (0.00-0.10); IMMATURE GRAN PERCENT AUTO 1 % (0-1); LYMPHOCYTES PERCENT AUTO 20 % (21-46); MONOCYTES ABSOLUTE AUTO 0.54 K/mm3 (0.16-1.47); MONOCYTES PERCENT AUTO 4 % (4-13); Mean Corpuscular HGB 19.9 pg (26.0-34.0); Mean Corpuscular HGB Conc 28.4 g/dL (31.5-36.5); Mean Corpuscular Volume 70 fL (80-100); Mean Platelet Volume 9.4 fL (9.1-12.4); NEUTROPHILS ABSOLUTE AUTO 10.43 K/mm3 (1.96-9.15); NEUTROPHILS PERCENT AUTO 73 % (41-73); Platelet Count 294 K/mm3 (150-400); RDW Coefficient Variation 20.4 % (11.7-14.2); RDW Standard Deviation 50.3 fL (35.1-46.3); Red Blood Cell Count 4.67 M/mm3 (3.80-5.20); White Blood Cell Count 14.31 K/mm3 (4.00-11.30)
--- NOTE | 2019-08-11 06:39 | NUR ---
08/11/19 0640 PT SLEEPING ON AND OFF. UNCOMPREHENSIBLE WORDS BUT DOES BLINK OR HOLD UP ONE OR TWO FINGERS TO "YES/NO" QUESTIONS AT TIMES. VITALS HAVE BEEN STABLE BUT O2 SATS THIS AM WERE FROM 88-90% ON ROOM AIR. RN APPLIED O2 AT 2 LPM VIA N/C WITH SATS NOW AT 95%. REPOSITIONED Q 2 HOURS AFTER FAMILY LEFT LAST NIGHT. NPO PER MD ORDERS. ORAL AND ALEJANDRA-CARE GIVEN
[2019-08-11 06:51] LABS: Anion Gap 6 mmol/L (6-16); Blood Urea Nitrogen 9 mg/dL (8-24); Bun/Creatinine Ratio 14.4 (12.0-20.0); CO2, Blood 25 mmol/L (21-32); Calcium, Blood 8.9 mg/dL (8.5-10.1); Chloride, Blood 108 mmol/L (98-108); Creatinine, Blood 0.63 mg/dL (0.40-1.00); Glomerular Filtration Rate >60 (60-); Glucose, Blood 166 mg/dL (70-99); Potassium, Blood 3.8 mmol/L (3.5-5.5); Sodium, Blood 139 mmol/L (136-145)
--- NOTE | 2019-08-11 18:42 | NUR ---
SHIFT SUMMARY NO ACUTE CHANGES TO PRESENT THIS SHIFT. PT HAD BEEN PUT ON NC PRIOR TO START OF DAY SHIFT. BIOX CHECKED; PT 92-94% ON RA. LUNGS T/O SLIGHTLY COARSE, SCATTERED THRU OUT. RADIOLOGY HERE TO TAKE PT FOR CHEST CT. PT TOLERATED WELL. REMAINED CONTINENT AND INCONTINENT AT TIMES. SOMETIMES CALLS FOR BED DIMAS. D/C ORDERS PLACED AFTER RESULTS OF CT COMPLETE. PT'S GRANDMOTHER CALLED TO COMFIRM D/C TIME. RETURNED CALL TO GRANDMOTHER AGAIN AFTER VERIFIED TIME OF D/C. PT RETURNED TO [facility]. REPORT CALLED PRIOR TO PT P/U. IV ABX GIVEN PRIOR TO P/U. PT'S LAST BM YESTERDAY AM, BUT THEN NPO SINCE ADMISSION FOR ASP RISK. NO S/SX OF DISTRESS NOTED OR REPORTED THIS SHIFT.
== END 2019-08-11 14:47 ==
LOC: ER 23:36 → MEDS 23:37 → ER 08-10 01:43 → MEDS 08-10 01:51
PROVIDERS: Emergency Medicine; Internal Medicine; ADMIT Hospitalist
DX: J96.01 Acute respiratory failure with hypoxia (principal); E11.9 Type 2 diabetes mellitus without complications; D72.829 Elevated white blood cell count, unspecified; G82.20 Paraplegia, unspecified; Z86.73 Personal history of transient ischemic attack (TIA), and cerebral infarction without residual deficits; Z86.14 Personal history of Methicillin resistant Staphylococcus aureus infection; Z87.891 Personal history of nicotine dependence; Z88.2 Allergy status to sulfonamides; Z79.4 Long term (current) use of insulin; Z79.51 Long term (current) use of inhaled steroids; Z79.899 Other long term (current) drug therapy
CPT/HCPCS: 36415; 71045; 71250; 80048; 80053; 82947; 84145; 85025; 87070; 87081; 96361; 96365; 96366; 96372; 99285-25; G0378; J1650; J2543; J7030; J7050

== ENCOUNTER → 2019-08-25 | Outpatient (CLI) | payer OTHER ==
[~2019-08-25] MED LIST changes: +BISA5EC PO; +CEFP200 PO; +FLONASE SENSIM5.9 ML; +Florastor250 MG PO; +Loratadine10 MG PO; +Thera Tears15 ML BOTHEYES; -XARELTO1 EACH PO; +XARELTO20 MG PO
[2019-08-25 11:48] LABS: BASOPHILS ABSOLUTE AUTO 0.05 K/mm3 (0.00-0.23); BASOPHILS PERCENT AUTO 0 % (0-2); EOSINOPHILS ABSOLUTE AUTO 0.51 K/mm3 (0.00-0.68); EOSINOPHILS PERCENT AUTO 4 % (0-6); Hematocrit 35.8 % (33.0-51.0); Hemoglobin 9.9 g/dL (11.5-16.0); IMMATURE GRAN ABSOLUTE AUTO 0.06 K/mm3 (0.00-0.10); IMMATURE GRAN PERCENT AUTO 0 % (0-1); LYMPHOCYTES ABSOLUTE AUTO 4.06 K/mm3 (0.84-5.20); LYMPHOCYTES PERCENT AUTO 28 % (21-46); MONOCYTES ABSOLUTE AUTO 0.56 K/mm3 (0.16-1.47); MONOCYTES PERCENT AUTO 4 % (4-13); Mean Corpuscular HGB 19.4 pg (26.0-34.0); Mean Corpuscular HGB Conc 27.7 g/dL (31.5-36.5); Mean Corpuscular Volume 70 fL (80-100); Mean Platelet Volume 9.3 fL (9.1-12.4); NEUTROPHILS ABSOLUTE AUTO 9.26 K/mm3 (1.96-9.15); NEUTROPHILS PERCENT AUTO 64 % (41-73); Platelet Count 310 K/mm3 (150-400); RDW Coefficient Variation 21.1 % (11.7-14.2); RDW Standard Deviation 50.9 fL (35.1-46.3); Red Blood Cell Count 5.09 M/mm3 (3.80-5.20)
[2019-08-25 12:20] LABS: Anion Gap 8 mmol/L (6-16); Blood Urea Nitrogen 12 mg/dL (8-24); Bun/Creatinine Ratio 19.8 (12.0-20.0); CO2, Blood 24 mmol/L (21-32); Calcium, Blood 9.2 mg/dL (8.5-10.1); Chloride, Blood 105 mmol/L (98-108); Creatinine, Blood 0.61 mg/dL (0.40-1.00); Glomerular Filtration Rate >60 (60-); Glucose, Blood 220 mg/dL (70-99); Potassium, Blood 3.9 mmol/L (3.5-5.5); Sodium, Blood 137 mmol/L (136-145)
== END | disposition home or self-care (01) ==
LOC: LAB UVN 10:45 → EDSTATUS 11:43
PROVIDERS: Nurse Practitioner Family
DX: E78.5 Hyperlipidemia, unspecified (principal); J18.1 Lobar pneumonia, unspecified organism; J96.01 Acute respiratory failure with hypoxia
CPT/HCPCS: 80048; 85025

== ENCOUNTER 2019-08-31 13:52 | Inpatient (IN) | payer OTHER ==
[~2019-08-31] VITALS: Ht 172.7 cm; Wt 100.5 kg
[~2019-08-31 13:52] MED LIST changes: -BISA5EC PO; -CEFP200 PO; -FLONASE SENSIM5.9 ML; -Florastor250 MG PO; -Loratadine10 MG PO; -Thera Tears15 ML BOTHEYES
[2019-08-31 14:31] LABS: Source, Urine Catheter
[2019-08-31 14:40] LABS: Blood, Urine 5+ (Neg); Glucose Qualitative, Urine Neg (Neg); Ketones, Urine 1+ (Neg); Leukocyte Esterase, Urine 2+ (Neg); Nitrite, Urine Pos (Neg); Protein, Urine 3+ (Neg); Specific Gravity, Urine 1.025 (1.003-1.022); Urobilinogen, Urine 1+ (Normal)
[2019-08-31 14:40] LABS: BASOPHILS ABSOLUTE AUTO 0.05 K/mm3 (0.00-0.23); BASOPHILS PERCENT AUTO 0 % (0-2); EOSINOPHILS ABSOLUTE AUTO 0.77 K/mm3 (0.00-0.68); EOSINOPHILS PERCENT AUTO 6 % (0-6); Hematocrit 35.6 % (33.0-51.0); Hemoglobin 9.9 g/dL (11.5-16.0); IMMATURE GRAN ABSOLUTE AUTO 0.05 K/mm3 (0.00-0.10); IMMATURE GRAN PERCENT AUTO 0 % (0-1); LYMPHOCYTES ABSOLUTE AUTO 2.63 K/mm3 (0.84-5.20); LYMPHOCYTES PERCENT AUTO 19 % (21-46); MONOCYTES ABSOLUTE AUTO 0.71 K/mm3 (0.16-1.47); MONOCYTES PERCENT AUTO 5 % (4-13); Mean Corpuscular HGB 19.7 pg (26.0-34.0); Mean Corpuscular HGB Conc 27.8 g/dL (31.5-36.5); Mean Corpuscular Volume 71 fL (80-100); Mean Platelet Volume 9.2 fL (9.1-12.4); NEUTROPHILS PERCENT AUTO 70 % (41-73); Platelet Count 294 K/mm3 (150-400); RDW Standard Deviation 51.9 fL (35.1-46.3); Red Blood Cell Count 5.02 M/mm3 (3.80-5.20); White Blood Cell Count 14.01 K/mm3 (4.00-11.30)
[2019-08-31 14:48] LABS: Bilirubin, Urine 1+ (Neg)
[2019-08-31 14:49] LABS: Appearance, Urine Cloudy (Clear); Color, Urine Amber (P-Yellow)
[2019-08-31 14:51] LABS: Red Blood Cells, Urine TNTC /hpf (0-2)
[2019-08-31 14:55] LABS: Bacteria Many /hpf; Mucus Light (0-Heavy); Squamous Epithelial Cells Few /hpf (Few)
[2019-08-31 15:01] LABS: Alanine Aminotransfer (ALT/SGP 19 U/L (12-78); Albumin, Blood 2.7 g/dL (3.4-5.0); Albumin/Globulin Ratio 0.5 (0.8-1.8); Alk Phos 106 U/L (50-136); Anion Gap 7 mmol/L (6-16); Aspartate Aminotrans (AST/SGOT 15 U/L (12-37); Bilirubin, Total 0.2 mg/dL (0.1-1.0); Blood Urea Nitrogen 12 mg/dL (8-24); CO2, Blood 26 mmol/L (21-32); Chloride, Blood 107 mmol/L (98-108); Creatinine, Blood 0.71 mg/dL (0.40-1.00); Globulin, Blood 5.4 g/dL (2.2-4.0); Glomerular Filtration Rate >60 (60-); Glucose, Blood 146 mg/dL (70-99); Potassium, Blood 3.9 mmol/L (3.5-5.5); Sodium, Blood 140 mmol/L (136-145); Total Protein, Blood 8.1 g/dL (6.4-8.2)
[2019-08-31] MEDS ORDERED: BISA5EC PO (16:52)
[2019-08-31] MEDS ORDERED: Loratadine10 MG PO (16:53)
[2019-08-31] MEDS ORDERED: FERSU300 PO (16:53)
[2019-08-31] MEDS ORDERED: FLONASE SENSIM5.9 ML (16:54)
[2019-08-31] MEDS ORDERED: Florastor250 MG PO (16:57)
--- NOTE | 2019-08-31 19:12 | NUR ---
ARRIVES TO FLOOR 1755. 4 PERSON MOVE FROM E.R. BED TO MEDICAL BED. NONVERBAL, NONAMBULATORY DUE TO TBI TEENAGER. ON 1 LPM OXYGEN. ONE LITER NACL GIVEN IN E.R. SECOND LITER OF SEPTIC WORKUP STARTED. NIGHT RN AWARE NEEDS 3RD LITER OF 700 ML AFTER THIS LITER DONE. REDNESS TO SACRAL AREA AND PER RELATIVE HAS D.U. ABLE TO POINT TO BATHROOM IF HAS TO USE BEDPAN AND NIGHT RN AWARE. REPORT TO NIGHT RN
--- NOTE | 2019-08-31 19:57 | NUR ---
1919: ASSUMED CARE OF PATIENT. PATIENT RESTING IN BED WITH FAMILY AT BEDSIDE ASSISTING PT TO EAT. NO APPARENT DISTRESS. BED LOW AND LOCKED. CALL BUNDY WITHIN REACH. HUNG NS PER EMAR. ASSISTED PT ONTO BEDPAN. HER MOTHER STATES SHE WILL TAKE CARE OF TAKING HER OPFF THE DIMAS.
--- NOTE | 2019-08-31 21:48 | NUR ---
[facility]- regarding patient sounds very wet and coarse and junky and requested to stop IVF and also reported [facility] that patient was drowsy and unable to give her xaralto. Will continue to try to gic the xaralto, stopped Bolus (which is mostly completed). will hold infusion until VICE PRESIDENT OF TALENT ACQUISITION Jodi Mary can see the patient herself.
--- NOTE | 2019-09-01 01:15 | NUR ---
FOUND PATIENT ASPIRATING WHITE FOAMY MUCOUS, MARTINEZ MANN ROSARIO TO FLOOR TO SEE HER, CALLED RT WHO PERFORMED NT SUCTIONING. RECEVIED ORDER FOR XRAY, NT SUCTION PRN. PT SEEMS MORE AWAKE NOW AND ASKED HER TO TAKE HER XARALTO. PT REFUSES. ASKED PT IS I SHOULD CONTACT HER MOM. PT DECLINES. EDWIGE ROSARIO WAS PRESENT AND WITNESS TO THE ABOVE.WILL CONTINUE TO MONITOR
[2019-09-01 04:48] LABS: BASOPHILS ABSOLUTE AUTO 0.04 K/mm3 (0.00-0.23); BASOPHILS PERCENT AUTO 0 % (0-2); EOSINOPHILS ABSOLUTE AUTO 0.51 K/mm3 (0.00-0.68); EOSINOPHILS PERCENT AUTO 4 % (0-6); Hematocrit 32.1 % (33.0-51.0); Hemoglobin 8.8 g/dL (11.5-16.0); IMMATURE GRAN ABSOLUTE AUTO 0.06 K/mm3 (0.00-0.10); IMMATURE GRAN PERCENT AUTO 0 % (0-1); LYMPHOCYTES ABSOLUTE AUTO 2.38 K/mm3 (0.84-5.20); LYMPHOCYTES PERCENT AUTO 17 % (21-46); MONOCYTES ABSOLUTE AUTO 0.63 K/mm3 (0.16-1.47); MONOCYTES PERCENT AUTO 5 % (4-13); Mean Corpuscular HGB 19.3 pg (26.0-34.0); Mean Corpuscular HGB Conc 27.4 g/dL (31.5-36.5); Mean Corpuscular Volume 71 fL (80-100); NEUTROPHILS ABSOLUTE AUTO 10.14 K/mm3 (1.96-9.15); NEUTROPHILS PERCENT AUTO 74 % (41-73); Platelet Count 252 K/mm3 (150-400); RDW Coefficient Variation 20.6 % (11.7-14.2); RDW Standard Deviation 50.9 fL (35.1-46.3); Red Blood Cell Count 4.55 M/mm3 (3.80-5.20); White Blood Cell Count 13.76 K/mm3 (4.00-11.30)
[2019-09-01 05:06] LABS: Anion Gap 5 mmol/L (6-16); Blood Urea Nitrogen 9 mg/dL (8-24); CO2, Blood 25 mmol/L (21-32); Calcium, Blood 8.4 mg/dL (8.5-10.1); Chloride, Blood 111 mmol/L (98-108); Glomerular Filtration Rate >60 (60-); Glucose, Blood 140 mg/dL (70-99); Potassium, Blood 3.9 mmol/L (3.5-5.5); Sodium, Blood 141 mmol/L (136-145)
--- NOTE | 2019-09-01 07:30 | NUR ---
PT HAD A ROUGH NIGHT. SHE SOUNDS BETTER BUT STILL DESATS INTERMITTENTLY, PT REFUSES HER ZARALTO THIS SHIFT AND DECLINED TO HAVE RN CONTACT HER GRANDMOTHER. EDWIGE ROSARIO WAS IN THE ROOM AND PRESENT TO SEE THIS.
--- NOTE | 2019-09-01 08:00 | NUR ---
NOTIFIED; FLUID OVERLOAD LAST NIGHT DID NOT FINISH SEPTIC FLUID WORKUP, DEEP SUCTIONED GETTING MAHOGAYN BLOOD, NO LASIX ORDERED, DROWSY NOT RESPONDING WELL, DID NOT GET XARELTO LAST NIGHT DUE TO EXCESSIVE DROWSINESS,ON 10 LPM OXYMIZER WITH GOOD SATS NOW. SCOPALOMINE??LASIX? PER SHE WILL SEE NOW.
[2019-09-01 08:33] LABS: Base Excess Venous 0.6 mmol/L; Bicarbonate Venous 24.9 mmol/L (24.0-30.0); PCO2 Venous 40.5 mmHg (38-42); PO2 Venous 164 mmHg (38-42)
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
--- NOTE | 2019-09-01 10:00 | NUR ---
REPORT TO [facility] ICU. GRANDMOTHER JOSE ADVISED OF TRANSFER.
--- NOTE | 2019-09-01 12:20 | NUR ---
PATIENT RESTING QUIETLY IN BED UPON ENTERING ROOM. PATIENT DENIES PAIN. PATIENT AFEBRILE. VSS. HR IN THE 90S. BP STABLE. PATIENT SATTING 90% AND GREATER ON 2 L NC. NO OTHER ACUTE CHANGES TO NOTE ON AT THIS TIME. WILL CONTINUE TO MONITOR.
--- NOTE | 2019-09-01 13:25 | NUR ---
CALLED AND UPDATED DR. PRETTY ON PATIENT STATUS. INFORMED THAT PATIENT ARRIVED TO UNIT ON 15 L OXYMIZER AND THAT SHE IS NOW DOWN TO 2 L NC AND REMAINS SATTING IN MID 90S. INFORMED THAT PATIENT INDICATED THAT SHE IS IN PAIN AND THAT THE PRN PAIN MEDICATIONS AVAILABLE ARE PO. STATED SHE WOULD LOOK AT PATIENT'S CHART AND ORDER IV PAIN MEDICATION.
--- NOTE | 2019-09-01 15:23 | NUR ---
NURSE UPDATED PATIENT'S GRANDMA ON PATIENT STATUS. INFORMED THAT O2 HAS BEEN REDUCED SINCE ARRIVING TO UNIT. INFORMED THAT PATIENT IS NPO AND A SWALLOW EVALUATION HAS BEEN ORDERED PATIENT DOES NOT APPEAR TO BE SWALLOWING ORAL SECRETIONS. GRANDMOTHER IMMEDIATELY BECAME IRRITATED AND STATED THAT SHE IS "IS SICK OF THE PATIENT ALWAYS BEING PLACED ON NPO AND BEING REFERRED FOR SWALLOW EVALUATIONS AND BEING PLACED ON NPO". GRANDMOTHER STATED THAT SHE FED PATIENT LAST NIGHT AND THAT SHE DID JUST FINE. GRANDMOTHER INFORMED THAT IF IT DOES NOT APPEAR THAT THE PATIENT IS SWALLOWING HER ORAL SECRETIONS THAT THERE IS RISK THAT SHE COULD ASPIRATE AND THAT PATIENT WOULD BE KEPT NPO UNTIL DETERMINED TO BE SAFE TO EAT AND DRINK. GRANDMOTHER REFUSES FOR PATIENT TO HAVE PEG TUBE PLACEMENT, SPEECH THERAPY EVALUATION AND WANTS HER TO BE FED. NURSE REITERATED THAT PATIENT WILL REMAIN NPO AT THIS TIME AND THAT DOCTOR WOULD BE INFORMED OF HER DECISIONS. DR. PRETTY CALLED AND INFORMED. SPEECH THERAPY WILL BE INFORMED OF GRANDMOTHER'S REFUSAL FOR SWALLOW EVALUATION. STATED TO ORDER STUCCO PLASTERER CONSULT FOR IV NUTRITION.
--- NOTE | 2019-09-01 16:20 | NUR ---
PATIENT RESTING QUIETLY IN BED. PATIENT DENIES PAIN. VSS. PATIENT REMAINS SATTING 90% AND GREATER ON 2 L NC. HR IN THE 90S. BP STABLE. PATIENT ASSISTED WITH USE OF BEDPAN. 350 MLS OF DARK YELLOW URINE OUT. NO OTHER ACUTE CHANGES TO NOTE ON AT THIS TIME. GRANDMOTHER REMAINS IN ROOM AND IS VERY SHORT. NURSES LEFT ROOM AFTER PATIENT PLACED ON BEDPAN GRANDMOTHER STATED SHE LIKES HER PRIVACY. NURSE INFORMED HER TO CALL WHEN FINISHED SO STAFF COULD GET HER OFF OF THE BEDPAN. GRANDMOTHER STATED THAT SHE WOULD JUST DO IT HERSELF. NURSE REITERATED TO GRANDMOTHER THAT THE NURSES WOULD DO IT AND TO CALL WHEN PATIENT FINISHED. NURSE CHECKED BACK IN ON PATIENT AND GRANDMOTHER HAD ALREADY TAKEN BED DIMAS OUT AND WAS PLACING ATTENDS BACK ON. NURSE DRESSED IN ISOLATION GEAR QUICKLY AND ASSISTED GRANDMOTHER. NURSE TOLD GRANDMOTHER THAT SHE SHOULD HAVE WAITED FOR TWO PEOPLE TO HELP SO SHE DOESN'T ACCIDENTLY HURT HER BACK. GRANDMOTHER STATED, "I HAVE BEEN DOING THIS FOR 19 YEARS AND I AM 77 YEARS OLD". NURSE FINISHED ASSISTING GRANDMOTHER WITH PATIENT CARE. PATIENT BLINKS "YES" THAT SHE IS COMFORTABLE. GRANDMOTHER 5REMAINS SHORT AND IRRITATED. MARQUEZ FOSTER, SPIRITUAL CARE, CALLED BY NURSE TO SPEAK WITH PATIENT AND GRANDMOTHER.
--- NOTE | 2019-09-01 17:34 | NUR ---
SHIFT SUMMARY PATIENT REMAINED ABLE TO COMMUNICATE WITH BLINKING OF EYELIDS AND FOLLOWING SOME SIMPLE COMMANDS. PATIENT CONTINUES TO NOT BE SWALLOWING ORAL SECRETIONS BEING PRODUCED WHEN SHE COUGHS. PATIENT REMAINED AFEBRILE. PATIENT HAD COMPLAINT OF PAIN OT DURING SHIFT, RECEIVED PRN DILAUDID, AND REPORTED RELIEF WITH. PATIENT ARRIVED TO UNIT THIS AM ON 15 L OXYMIZER. SHORTLY AFTER ARRIVING PATIENT ABLE TO BE DECREASED TO 5 L OXYMIZER AND THEN 2 L NC. PATIENT HAS REMAINED SATTING 90% AND GREATER ON 2 L NC SINCE. PATIENT HAS REMAINED IN SR/ST, HR 90S TO LOW 100S. BP HAS REMAINED STABLE. PATIENT DID NOT HAVE BM THIS SHIFT. PATIENT VOIDING DARK YELLOW URINE. PATIENT INCONTINENT OF BOTH STOOL AND URINE TIMES. PATIENT CAN COMMUNICATE SHE NEEDS THE BED DIMAS IF THE NURSE IS IN THE ROOM AND ASKS PATIENT AT THE RIGHT TIME. PATIENT HAS REMAINED NPO. GRANDMOTHER REMAINS VERY IRRITATED THAT PATIENT IS NPO, BUT INFORMED THAT THIS IS HOW IT WILL STAY SHE IS NOT HAVING THE SWALLOW EVAL BY SPEECH THERAPY ( WAS REFUSED BY GRANDMOTHER). SKIN REMAINED UNCHANGED. PATIENT REPOSITIONED THROUGHOUT SHIFT. NS REMAINS INFUSING AT 200 MLS/ HOUR. BED LOW, CALL LIGHT IN REACH. NO COMPLAINTS AT THIS TIME. GRANDMOTHER AT BEDSIDE SPEAKING WITH SPIRITUAL CARE. WILL CONTINUE TO MONITOR UNTIL REPORT GIVEN TO ONCOMING MOTOR SCOOTER MECHANIC NURSE.
--- NOTE | 2019-09-01 20:00 | NUR ---
ASSUMED CARE OF PT AT 1915. REPORT RECEIVED AT BEDSIDE. PT PRESENTS IN BED AWAKE, AND MAKES EYE CONTACT. DOES SMILE WITH CONVERSATION. PT'S GRANDMOTHER IN ROOM. ATTENTIVE TO PT'S NEEDS. PT ABLE TO USE CALL LIGHT. WILL CHANGE TO SOFT TOUCH CALL LIGHT SECONDARY TO PT'S LIMITED ABILITY WITH ROM. WILL REVIEW CHART AND PLAN OF CARE FOR THIS PT.
--- NOTE | 2019-09-01 23:00 | NUR ---
PT'S GRANDMOTHER LEAVES FOR THE NIGHT. DISCUSSED PLAN OF CARE BEFORE SHE LEFT, AND SHE IS IN AGREEMENT. PT HAS MOIST COUGH WHEREAS SHE IS NOT ABLE TO COMPLETELY CLEAR SECRETIONS. HAVE MADE USE OF YAUNKEUR SUCTION TO ASSIST PT IN CLEARING. SHE TOLERATES THIS FAIR. HAVE REMOVED FIELD START IV FROM LEFT HAND SECONDARY TO LEAKAGE. WILL MAINTAIN SINGLE IV AT THIS TIME.
[2019-09-02 04:21] LABS: BASOPHILS ABSOLUTE AUTO 0.04 K/mm3 (0.00-0.23); BASOPHILS PERCENT AUTO 0 % (0-2); EOSINOPHILS ABSOLUTE AUTO 0.56 K/mm3 (0.00-0.68); EOSINOPHILS PERCENT AUTO 5 % (0-6); Hematocrit 30.1 % (33.0-51.0); Hemoglobin 8.2 g/dL (11.5-16.0); IMMATURE GRAN ABSOLUTE AUTO 0.03 K/mm3 (0.00-0.10); IMMATURE GRAN PERCENT AUTO 0 % (0-1); LYMPHOCYTES ABSOLUTE AUTO 2.57 K/mm3 (0.84-5.20); LYMPHOCYTES PERCENT AUTO 25 % (21-46); MONOCYTES ABSOLUTE AUTO 0.57 K/mm3 (0.16-1.47); MONOCYTES PERCENT AUTO 5 % (4-13); Mean Corpuscular HGB 19.7 pg (26.0-34.0); Mean Corpuscular HGB Conc 27.2 g/dL (31.5-36.5); Mean Corpuscular Volume 72 fL (80-100); Mean Platelet Volume 9.3 fL (9.1-12.4); NEUTROPHILS PERCENT AUTO 64 % (41-73); Platelet Count 269 K/mm3 (150-400); RDW Coefficient Variation 20.5 % (11.7-14.2); RDW Standard Deviation 52.4 fL (35.1-46.3); Red Blood Cell Count 4.16 M/mm3 (3.80-5.20); White Blood Cell Count 10.47 K/mm3 (4.00-11.30)
[2019-09-02 04:37] LABS: Albumin, Blood 2.3 g/dL (3.4-5.0); Anion Gap 6 mmol/L (6-16); Blood Urea Nitrogen 9 mg/dL (8-24); Bun/Creatinine Ratio 16.1 (12.0-20.0); CO2, Blood 26 mmol/L (21-32); Calcium, Blood 8.3 mg/dL (8.5-10.1); Chloride, Blood 110 mmol/L (98-108); Creatinine, Blood 0.56 mg/dL (0.40-1.00); Glomerular Filtration Rate >60 (60-); Glucose, Blood 149 mg/dL (70-99); Magnesium, Blood 1.9 mg/dL (1.6-2.4); Phosphorus, Blood 2.8 mg/dL (2.5-4.9); Potassium, Blood 3.7 mmol/L (3.5-5.5); Sodium, Blood 142 mmol/L (136-145)
--- NOTE | 2019-09-02 05:27 | NUR ---
UNFORTUNATELY, PT'S SECOND PERIPHERAL IV NO LONGER PATENT. VERY LIGHT SWELLING AT SITE. REMOVED THIS IV. PLACEMENT OF 18 GAUGE, 10 CM POWER GLIDE TO LEFT UPPER ARM. PT TOLERATES THIS VERY WELL. LABS DRAWN FROM [employer]IDE WITHOUT ISSUES. PT HAS HAD AN INCREASE IN HER RESPIRATORY SECRETIONS, AND HAS NEEDED SUCTIONING. WITH THIS, SUCTIONING DOES ELICIT STRONG COUGH WHICH PRODUCES THIN SECRETIONS. CURRENTLY PT ON 3 L/M O2 PER NASAL CANNULA. MAINTAINING > 90 PERCENT SATURATION. WILL CONTINUE TO MONITOR PT, AND WILL REPORT OFF TO ONCOMING RN.
--- NOTE | 2019-09-02 08:00 | NUR ---
INITIAL ASSESMENT PT RESTING IN BED, NONVERBAL BUT WILL SMILE WHEN SPOKEN TOO AND COMMUNICATES THROUGH BLINKING WHEN ASSKED QUESTIONS. NO NON VERBAL INDICATIONS OF PAIN. AFEBRILE, VSS, PALP PULSES T/O WITH TRACE GENERALIZED EDEMA. 4L NC WITH COURSE AND DIM LUNG SOUNDS BILAT. WEAK NON PRODUCTIVE WET COUGH, NO S/S OF RESP DISTRESS OR SOB. INCONTINENT OF URINE AND BRIEFS CHANGED PRN. NO BM. ABD OBESE ROUND SOFT AND NON TENDER WITH BTS T/O. SKIN INTACT AND TURNS Q2 HRS. WILL CONT TO MONITOR
--- NOTE | 2019-09-02 17:42 | NUR ---
PT TRANSFER REPORT CALLED TO MEDICAL RN AND PT TRANSPORTED TO ROOM VIA BED WITHOUT ISSUE. PT MEDS, BELONGINGS LEFT WITH PT AND GRANDMA AT BEDSIDE
--- NOTE | 2019-09-02 19:33 | NUR ---
END OF SHIFT SUMMARY: PATIENT ARRIVED TO UNIT AROUND 17:30. PATIENT'S GRANDMOTHER WITH THE PATIENT. PATIENT ABLE TO ANSWER "YES" AND "NO" QUESTIONS USING EYE BLINKS AND SOME VOCALIZATION (THAT THE GRANDMOTHER UNDERSTOOD). PATIENT HAS GROSS MOVEMENT IN UPPER ARMS, ESPECIALLY LEFT ARM. PATIENT ABLE TO MOVE FINGERS OF LEFT HAND TO GRASP. PATIENT DENIES PAIN AT THIS TIME. PATIENT HAS A WET COUGH. HEAD OF BED ELEVATED AND SUCTION SET UP IN ROOM. DISCUSSED BASELINE O2. GRANDMOTHER REPORTS THAT THE PATIENT DOES NOT WEAR O2 AT HOME. STARTED TRIAL OF WEENING OFF O2. PATIENT CURRENTLY ON 2L VIA NC AT 94%. PER ORDER, CONTNIUOUS BIOX SET UP IN ROOM. PATIENT HAS IV CLINIMIX RUNNING PER EMAR INTO POWERGLIDE. GRANDMOTHER AND GRANDFATHER AT BEDSIDE.
[2019-09-03 01:26] LABS: BASOPHILS ABSOLUTE AUTO 0.04 K/mm3 (0.00-0.23); BASOPHILS PERCENT AUTO 0 % (0-2); EOSINOPHILS ABSOLUTE AUTO 0.47 K/mm3 (0.00-0.68); EOSINOPHILS PERCENT AUTO 4 % (0-6); Hematocrit 31.1 % (33.0-51.0); Hemoglobin 8.7 g/dL (11.5-16.0); IMMATURE GRAN ABSOLUTE AUTO 0.02 K/mm3 (0.00-0.10); IMMATURE GRAN PERCENT AUTO 0 % (0-1); LYMPHOCYTES ABSOLUTE AUTO 3.08 K/mm3 (0.84-5.20); LYMPHOCYTES PERCENT AUTO 26 % (21-46); MONOCYTES ABSOLUTE AUTO 0.54 K/mm3 (0.16-1.47); MONOCYTES PERCENT AUTO 5 % (4-13); Mean Corpuscular HGB 19.9 pg (26.0-34.0); Mean Corpuscular Volume 71 fL (80-100); Mean Platelet Volume 8.8 fL (9.1-12.4); NEUTROPHILS ABSOLUTE AUTO 7.77 K/mm3 (1.96-9.15); NEUTROPHILS PERCENT AUTO 65 % (41-73); Platelet Count 286 K/mm3 (150-400); RDW Coefficient Variation 20.2 % (11.7-14.2); RDW Standard Deviation 51.5 fL (35.1-46.3); Red Blood Cell Count 4.38 M/mm3 (3.80-5.20); White Blood Cell Count 11.92 K/mm3 (4.00-11.30)
[2019-09-03 01:41] LABS: Anion Gap 6 mmol/L (6-16); Blood Urea Nitrogen 10 mg/dL (8-24); Bun/Creatinine Ratio 18.6 (12.0-20.0); CO2, Blood 26 mmol/L (21-32); Calcium, Blood 8.4 mg/dL (8.5-10.1); Chloride, Blood 108 mmol/L (98-108); Creatinine, Blood 0.54 mg/dL (0.40-1.00); Glomerular Filtration Rate >60 (60-); Glucose, Blood 162 mg/dL (70-99); Potassium, Blood 3.8 mmol/L (3.5-5.5); Sodium, Blood 140 mmol/L (136-145)
[2019-09-03 01:42] LABS: Gentamicin, Random 3.2 ug/Ml
--- NOTE | 2019-09-03 04:54 | NUR ---
SHIFT SUMMARY NO ACUTE EVENTS OVERNIGHT. PATIENT TURNED Q2H. INCONTINENT OF BLADDER. PATIENT O2 SAT DOWN TO 86% ON 2L NC WHILE ASLEEP. 94% ON 3L NC WHILE AWAKE. PATIENT NON-VERBAL. LEFT MIDLINE IV PATENT BUT DOES NOT DRAW BACK BLOOD. DRESSING CHANGED. SKIN INTACT. WILL CONTINUE TO MONITOR.
[2019-09-03 14:32] LABS: Gentamicin, Trough 0.2 ug/mL (0.0-1.9)
--- NOTE | 2019-09-03 17:02 | NUR ---
SHIFT SUMMARY PT AWAKE DURING SHIFT REPORT, NONVERBAL BUT ABLE TO BLINK FOR SOME COMMUNICATION. SOMETIMES UNCLEAR IF BLINKING IS ACCURATE THOUGH. PT ON 2L NC WITH BIOX AT 96%. OCCASSIONAL ORAL SUCTIONING DONE PRN. PT STILL NPO AT START OF SHIFT D/T DECREASED LOC WHEN ADMITTED. DIET INCREASED TO PUREE WHEN DR BURCIAGA CAME TO ASSESS PT; PT TOLERATED EATING A WHOLE YOGURT W/O APPARENT S/SX OF ASPIRATION. LUNGS T/O WITH SCATTERED WHEEZES THRU OUT, COARSE COUGH. PT IS MORBIDLY OBESE PARAPLEGIC. INSULIN HELD WHILE NPO AND CHANGED TO HS WHEN PT ABLE TO EAT. DR BURCIAGA ATTEMPTED TO CALL PT'S GRANDMA BUT NO ONE WOULD ANS. CLINIMIX TO BE D/C'D AFTER PT ABLE TO EAT DINNER. TOUCH CALL LT IN REACH. PT ABLE TO USE. GRANDMOTHER REMAINS AT BS.
--- NOTE | 2019-09-04 04:49 | NUR ---
SHIFT SUMMARY NO ACUTE EVENTS OVERNIGHT. PATIENT SLEPT THROUGHOUT BROOMCORN PRESS FEEDER. [id number]. PATIENT LESS CONGESTED THAN PREVIOUS BROOMCORN PRESS FEEDER. OTHERWISE NO CHANGE. PATIENT SLEPT COMFORTABLY. WILL CONTINUE TO MONITOR
[2019-09-04 06:10] LABS: BASOPHILS ABSOLUTE AUTO 0.05 K/mm3 (0.00-0.23); BASOPHILS PERCENT AUTO 0 % (0-2); EOSINOPHILS ABSOLUTE AUTO 0.58 K/mm3 (0.00-0.68); EOSINOPHILS PERCENT AUTO 4 % (0-6); Hematocrit 32.3 % (33.0-51.0); Hemoglobin 9.2 g/dL (11.5-16.0); IMMATURE GRAN ABSOLUTE AUTO 0.08 K/mm3 (0.00-0.10); IMMATURE GRAN PERCENT AUTO 1 % (0-1); LYMPHOCYTES ABSOLUTE AUTO 4.04 K/mm3 (0.84-5.20); LYMPHOCYTES PERCENT AUTO 30 % (21-46); MONOCYTES ABSOLUTE AUTO 0.62 K/mm3 (0.16-1.47); MONOCYTES PERCENT AUTO 5 % (4-13); Mean Corpuscular HGB 19.5 pg (26.0-34.0); Mean Corpuscular HGB Conc 28.5 g/dL (31.5-36.5); Mean Corpuscular Volume 68 fL (80-100); NEUTROPHILS PERCENT AUTO 60 % (41-73); Platelet Count 304 K/mm3 (150-400); RDW Coefficient Variation 20.5 % (11.7-14.2); RDW Standard Deviation 49.2 fL (35.1-46.3); Red Blood Cell Count 4.73 M/mm3 (3.80-5.20); White Blood Cell Count 13.57 K/mm3 (4.00-11.30)
[2019-09-04 06:23] LABS: Anion Gap 8 mmol/L (6-16); Blood Urea Nitrogen 13 mg/dL (8-24); Bun/Creatinine Ratio 21.5 (12.0-20.0); CO2, Blood 24 mmol/L (21-32); Calcium, Blood 8.9 mg/dL (8.5-10.1); Chloride, Blood 108 mmol/L (98-108); Creatinine, Blood 0.61 mg/dL (0.40-1.00); Glomerular Filtration Rate >60 (60-); Glucose, Blood 155 mg/dL (70-99); Potassium, Blood 4.1 mmol/L (3.5-5.5); Sodium, Blood 140 mmol/L (136-145)
[2019-09-04] MEDS ORDERED: Thera Tears15 ML BOTHEYES (13:01)
[2019-09-04] MEDS ORDERED: Humalog100 UNIT/1 SC (13:02)
[2019-09-04] MEDS ORDERED: ALBU3IS INH (13:02)
[2019-09-04] MEDS ORDERED: CEFP200 PO (13:03)
--- NOTE | 2019-09-04 15:11 | NUR ---
SHIFT SUMMARY PT AWAKE DURING SHIFT REPORT. PT HAD JUST BEEN CHANGED AND REPOSITIONED PRIOR TO START OF DAY SHIFT. RT THEN IN TO SEE PT. SUCTION DONE BY RT WHEN AM TX'S GIVEN. PT LATER ABLE TO EAT BREAKFAST AND TOLERATED WELL, BUT DID COUGH A COUPLE OF TIMES AFTER SHE WAS FINISHED. DR BURCIAGA HERE TO SEE PT AND ORDERED D/C BACK TO [facility]. GRANDMOTHER NOTIFIED BY DR BURCIAGA WELL CM. GLASSES SENT WITH PT IN BELONGINGS BAG AND TRANSPORT STAFF. PER GRANDMOTHER, REMAINING BELONGINGS SHE HAD ALREADY TAKEN OUT OF . PT DID NOT APPEAR TO BE IN ANY ACUTE DISTRESS. SMILED WHEN TOLD THAT SHE WOULD BE GOING BACK HOME. REPORT CALLED TO ROSE MARIE , AT [facility].
== END 2019-09-04 13:37 | DRG 698 ==
LOC: ER 13:52 → MEDS 16:36 → ICUE 16:36 → MEDS 17:48 → ICUE 09-01 09:47 → MEDS 09-02 17:29
PROVIDERS: Emergency Medicine; Internal Medicine; ADMIT Internal Medicine
DX: T83.511A Infection and inflammatory reaction due to indwelling urethral catheter, initial encounter (principal); G92 Toxic encephalopathy; J96.01 Acute respiratory failure with hypoxia; A41.9 Sepsis, unspecified organism; R65.20 Severe sepsis without septic shock; Z16.29 Resistance to other single specified antibiotic; Z16.19 Resistance to other specified beta lactam antibiotics; G82.20 Paraplegia, unspecified; E44.0 Moderate protein-calorie malnutrition; E87.2 Acidosis; N39.0 Urinary tract infection, site not specified; B96.20 Unspecified Escherichia coli [E. coli] as the cause of diseases classified elsewhere; Z86.718 Personal history of other venous thrombosis and embolism; Z79.01 Long term (current) use of anticoagulants; Z87.820 Personal history of traumatic brain injury; I69.369 Other paralytic syndrome following cerebral infarction affecting unspecified side; E11.9 Type 2 diabetes mellitus without complications; D64.9 Anemia, unspecified; Z87.442 Personal history of urinary calculi; Z68.30 Body mass index [BMI] 30.0-30.9, adult; Z87.01 Personal history of pneumonia (recurrent); Z86.14 Personal history of Methicillin resistant Staphylococcus aureus infection; T17.298A Other foreign object in pharynx causing other injury, initial encounter; R31.9 Hematuria, unspecified
CPT/HCPCS: 31720; 36415; 71045; 80048; 80053; 80069; 80170; 81001; 82803; 82947; 83605; 83735; 83880; 84145; 84484; 85025; 87040; 87070; 87077; 87086; 87186; 87205; 93005; 93010; 94640; 94762; 96361; 96365; 99285-25; A9270; C1751; J0694; J0696; J1170; J1580; J1650; J2543; J7030; P9612

== ENCOUNTER → 2019-09-14 | Outpatient (CLI) | payer OTHER ==
[~2019-09-14] MED LIST changes: +BISA5EC PO; +CEFP200 PO; +FLONASE SENSIM5.9 ML; +Florastor250 MG PO; +Loratadine10 MG PO; +Thera Tears15 ML BOTHEYES
[2019-09-14 14:04] LABS: Source, Urine Clean Catch
[2019-09-14 14:10] LABS: Bilirubin, Urine Neg (Neg); Blood, Urine 5+ (Neg); Glucose Qualitative, Urine Neg (Neg); Ketones, Urine Neg (Neg); Leukocyte Esterase, Urine 3+ (Neg); Nitrite, Urine Neg (Neg); Protein, Urine 3+ (Neg); Urobilinogen, Urine NORM (Normal); pH, Urine 6.5 (5.0-8.0)
[2019-09-14 14:33] LABS: Appearance, Urine Hazy (Clear); Color, Urine Yellow (P-Yellow); Red Blood Cells, Urine TNTC /hpf (0-2); Squamous Epithelial Cells Few /hpf (Few); White Blood Cells, Urine TNTC /hpf (0-5)
[2019-09-14 14:34] LABS: Bacteria Many /hpf
== END | disposition home or self-care (01) ==
LOC: EDSTATUS 08:28 → LAB UVN 13:51
DX: N39.0 Urinary tract infection, site not specified (principal)
CPT/HCPCS: 81001; 87086

== ENCOUNTER → 2019-09-25 | Outpatient (CLI) | payer OTHER ==
[2019-09-25 23:26] LABS: Source, Urine Clean Catch
[2019-09-25 23:31] LABS: Bilirubin, Urine Neg (Neg); Blood, Urine 5+ (Neg); Glucose Qualitative, Urine Neg (Neg); Ketones, Urine Neg (Neg); Leukocyte Esterase, Urine 3+ (Neg); Nitrite, Urine Pos (Neg); Protein, Urine 3+ (Neg); Urobilinogen, Urine NORM (Normal)
[2019-09-25 23:35] LABS: Appearance, Urine Cloudy (Clear); Color, Urine Yellow (P-Yellow)
[2019-09-25 23:40] LABS: Bacteria Many /hpf; Squamous Epithelial Cells Rare /hpf (Few); White Blood Cells, Urine TNTC /hpf (0-5)
== END | disposition home or self-care (01) ==
LOC: EDSTATUS 08:29 → LAB UVN 23:23
DX: N39.0 Urinary tract infection, site not specified (principal)
CPT/HCPCS: 81001; 87077; 87086; 87186

== ENCOUNTER → 2019-09-28 | Outpatient (CLI) | payer OTHER ==
[2019-09-28 14:50] LABS: Influenza A Negative (NEGATIVE); Influenza B Negative (NEGATIVE)
== END | disposition home or self-care (01) ==
LOC: LAB UVN 12:36 → EDSTATUS 15:10
DX: R50.9 Fever, unspecified (principal)
CPT/HCPCS: 87804

== ENCOUNTER 2019-10-03 16:57 | Emergency (ER) | payer OTHER ==
[~2019-10-03] VITALS: Ht 175.3 cm; Wt 104.3 kg
--- NOTE | 2019-10-03 19:16 | NUR ---
ATTEMPTED POWER GLIDE IN L UPPER WITH NO RESULTS. ATTEMPTED IV X4 WITH NO RESULTS.
== END 2019-10-03 20:15 | disposition home or self-care (01) ==
LOC: ER 16:57
DX: Z45.2 Encounter for adjustment and management of vascular access device (principal); E11.9 Type 2 diabetes mellitus without complications; Z86.73 Personal history of transient ischemic attack (TIA), and cerebral infarction without residual deficits; Z79.899 Other long term (current) drug therapy; Z79.4 Long term (current) use of insulin
CPT/HCPCS: 36415; 36569; 99283-25

== ENCOUNTER → 2019-11-06 | Outpatient (CLI) | payer OTHER ==
[2019-11-06 21:10] LABS: Bilirubin, Urine Neg (Neg); Blood, Urine 5+ (Neg); Glucose Qualitative, Urine 4+ (Neg); Ketones, Urine Neg (Neg); Leukocyte Esterase, Urine 3+ (Neg); Nitrite, Urine Neg (Neg); Protein, Urine 2+ (Neg); Urobilinogen, Urine NORM (Normal)
[2019-11-06 21:16] LABS: Appearance, Urine Hazy (Clear); Color, Urine Yellow (P-Yellow)
[2019-11-06 21:18] LABS: Bacteria Many /hpf; Squamous Epithelial Cells Many /hpf (Few)
== END | disposition home or self-care (01) ==
LOC: EDSTATUS 15:10 → LAB UVN 18:00
DX: N39.0 Urinary tract infection, site not specified (principal)
CPT/HCPCS: 81001; 87077; 87086; 87186

== ENCOUNTER → 2019-12-10 | Outpatient (CLI) | payer OTHER ==
[2019-12-18 14:11] LABS: BRUSHITE 3.63 ratio (0.00-3.00); CALCIUM OXALATE 6.25 ratio (0.00-6.00); CALCIUM, URINE 19.2 mg/dL (Not Estab.); CHLORIDE URINE 34 (110-250); CITRIC ACID (CITRATE) 817 mg/L (Not Estab.); CITRIC ACID(CITRATE) 409 mg/24 hr (320-1240); CREATININE, URINE 335.5 mg/24 hr (800.0-1800.0); CREATININE, URINE 67.1 mg/dL (Not Estab.); MAGNESIUM, URINE 9.3 mg/dL (Not Estab.); MONOSODIUM URATE 5.18 ratio (0.00-4.00); OSMOLALITY, URINE 542 (300-900); SODIUM, URINE 36 (39-258); SODIUM, URINE 72 mmol/L (Not Estab.); STRUVITE 0.06 ratio (0.00-1.00); URIC ACID 0.91 ratio (0.00-1.20); URINE VOLUME 500 mL/24 hr (600-1600); URINE VOLUME (PRESERVATIVE) 500 mL/24 hr (600-1600)
== END | disposition home or self-care (01) ==
LOC: LAB SHORT 11:04 → LAB 11:04
PROVIDERS: Nurse Practitioner Family
DX: N20.0 Calculus of kidney (principal)
CPT/HCPCS: 81003; 82131; 82140; 82340; 82436; 82507; 82570; 83735; 83935; 83945; 84105; 84133; 84300; 84392; 84560

== ENCOUNTER → 2019-12-24 | Outpatient (CLI) | payer OTHER ==
[2019-12-24 11:38] LABS: Anion Gap 5 mmol/L (6-16); Blood Urea Nitrogen 13 mg/dL (8-24); Bun/Creatinine Ratio 22.6 (12.0-20.0); CO2, Blood 26 mmol/L (21-32); Calcium, Blood 8.8 mg/dL (8.5-10.1); Chloride, Blood 110 mmol/L (98-108); Creatinine, Blood 0.58 mg/dL (0.40-1.00); Glomerular Filtration Rate >60 (60-); Glucose, Blood 101 mg/dL (70-99); Potassium, Blood 4.1 mmol/L (3.5-5.5); Sodium, Blood 141 mmol/L (136-145)
== END | disposition home or self-care (01) ==
LOC: LAB UVN 08:32 → EDSTATUS 13:34
PROVIDERS: Nurse Practitioner Family
DX: I10 Essential (primary) hypertension (principal)
CPT/HCPCS: 36415; 80048; 83970

== ENCOUNTER → 2019-12-31 | Outpatient (CLI) | payer OTHER ==
[2019-12-31 17:23] LABS: Hematocrit 38.1 % (33.0-51.0); Hemoglobin 10.7 g/dL (11.5-16.0); Mean Corpuscular HGB 20.2 pg (26.0-34.0); Mean Corpuscular HGB Conc 28.1 g/dL (31.5-36.5); Mean Corpuscular Volume 72 fL (80-100); Mean Platelet Volume 8.9 fL (9.1-12.4); Platelet Count 180 K/mm3 (150-400); RDW Coefficient Variation 20.5 % (11.7-14.2); RDW Standard Deviation 51.3 fL (35.1-46.3); Red Blood Cell Count 5.31 M/mm3 (3.80-5.20); White Blood Cell Count 8.82 K/mm3 (4.00-11.30)
[2019-12-31 17:35] LABS: Anion Gap 4 mmol/L (6-16); Blood Urea Nitrogen 12 mg/dL (8-24); Bun/Creatinine Ratio 26.4 (12.0-20.0); CO2, Blood 26 mmol/L (21-32); Calcium, Blood 9.2 mg/dL (8.5-10.1); Chloride, Blood 106 mmol/L (98-108); Creatinine, Blood 0.45 mg/dL (0.40-1.00); Glomerular Filtration Rate >60 (60-); Glucose, Blood 110 mg/dL (70-99); Potassium, Blood 3.9 mmol/L (3.5-5.5); Sodium, Blood 136 mmol/L (136-145)
== END | disposition home or self-care (01) ==
LOC: LAB UVN 12:00 → EDSTATUS 13:06 → LAB UVN 17:03
PROVIDERS: Nurse Practitioner Family
DX: I69.351 Hemiplegia and hemiparesis following cerebral infarction affecting right dominant side (principal)
CPT/HCPCS: 80048; 85027

== ENCOUNTER → 2020-01-02 | Outpatient (CLI) | payer OTHER ==
[2020-01-02 08:01] LABS: Source, Urine Clean Catch
[2020-01-02 08:18] LABS: Bilirubin, Urine Neg (Neg); Blood, Urine Neg (Neg); Glucose Qualitative, Urine 1+ (Neg); Ketones, Urine Neg (Neg); Leukocyte Esterase, Urine 1+ (Neg); Nitrite, Urine Neg (Neg); Protein, Urine 2+ (Neg); Urobilinogen, Urine NORM (Normal)
[2020-01-02 08:19] LABS: Appearance, Urine Hazy (Clear); Color, Urine Yellow (P-Yellow)
[2020-01-02 08:21] LABS: Red Blood Cells, Urine 0-2 /hpf (0-2); Squamous Epithelial Cells Many /hpf (Few)
[2020-01-02 08:22] LABS: Bacteria Many /hpf; Yeast/Fungi Urine Many /hpf
== END | disposition home or self-care (01) ==
LOC: LAB RH 07:56 → EDSTATUS 15:44
PROVIDERS: Nurse Practitioner Family
DX: N20.1 Calculus of ureter (principal); N39.0 Urinary tract infection, site not specified
CPT/HCPCS: 81001; 87086

== ENCOUNTER → 2020-07-26 | Outpatient (CLI) | payer OTHER ==
[~2020-07-26] MED LIST changes: +ALLERCLEAR10 MG PO; +ARTIFICIAL TEA1 EAC2 BOTHEYES; +CALCIUM 500 +1 EAC3 PO; +GENTEAL TEARS S10 GM BOTHEYES; +GLIP2.5ER PO; -Glucophage1000 MG PO; +LEVFLO500 PO; +METFORMIN HCL1000 M2 PO; +PRENATAL TABLE1 EAC2 PO; +PROBIOTIC250 MG PO; +XARELTO20 M1 PO
[2020-07-26 16:00] LABS: Source, Urine Catheter
[2020-07-26 17:46] LABS: Bilirubin, Urine Neg (Neg); Blood, Urine 2+ (Neg); Glucose Qualitative, Urine Neg (Neg); Ketones, Urine Neg (Neg); Leukocyte Esterase, Urine 3+ (Neg); Nitrite, Urine Neg (Neg); Protein, Urine 2+ (Neg); Urobilinogen, Urine NORM (Normal)
[2020-07-26 17:58] LABS: Appearance, Urine Cloudy (Clear); Color, Urine Yellow (P-Yellow); White Blood Cells, Urine TNTC /hpf (0-5)
[2020-07-26 17:59] LABS: Bacteria Many /hpf; Squamous Epithelial Cells Few /hpf (Few)
== END | disposition home or self-care (01) ==
LOC: EDSTATUS 11:27 → LAB UVN 15:59
PROVIDERS: Nurse Practitioner Adult Health
DX: N20.1 Calculus of ureter (principal); R30.0 Dysuria
CPT/HCPCS: 81001; 87077; 87086; 87186

== ENCOUNTER → 2020-08-04 | Outpatient (CLI) | payer OTHER ==
[2020-08-04 06:23] LABS: Hematocrit 38.2 % (33.0-51.0); Hemoglobin 11.4 g/dL (11.5-16.0); Mean Corpuscular HGB 26.6 pg (26.0-34.0); Mean Corpuscular HGB Conc 29.8 g/dL (31.5-36.5); Mean Corpuscular Volume 89 fL (80-100); Mean Platelet Volume 10.1 fL (9.1-12.4); Platelet Count 179 K/mm3 (150-400); RDW Coefficient Variation 19.9 % (11.7-14.2); RDW Standard Deviation 65.5 fL (35.1-46.3); Red Blood Cell Count 4.28 M/mm3 (3.80-5.20); White Blood Cell Count 7.07 K/mm3 (4.00-11.30)
[2020-08-04 06:34] LABS: Anion Gap 5 mmol/L (6-16); Blood Urea Nitrogen 14 mg/dL (8-24); Bun/Creatinine Ratio 26.5 (12.0-20.0); CO2, Blood 29 mmol/L (21-32); Calcium, Blood 9.3 mg/dL (8.5-10.1); Chloride, Blood 110 mmol/L (98-108); Creatinine, Blood 0.53 mg/dL (0.40-1.00); Glomerular Filtration Rate >60 (60-); Glucose, Blood 76 mg/dL (70-99); Potassium, Blood 4.1 mmol/L (3.5-5.5); Sodium, Blood 144 mmol/L (136-145)
== END | disposition home or self-care (01) ==
LOC: LAB UVN 06:19 → EDSTATUS 15:06
PROVIDERS: Family Medicine
DX: N39.0 Urinary tract infection, site not specified (principal)
CPT/HCPCS: 80048; 85027

== ENCOUNTER → 2020-08-17 | Outpatient (CLI) | payer OTHER | END | disposition home or self-care (01) | LOC: EDSTATUS 09:35 → LAB UVN 14:11 | DX: I82.602 Acute embolism and thrombosis of unspecified veins of left upper extremity (principal); E72.12 Methylenetetrahydrofolate reductase deficiency | CPT/HCPCS: 82607; 82746; 83090 ==

== ENCOUNTER → 2020-10-13 | Outpatient (CLI) | payer OTHER ==
[2020-10-13 20:25] LABS: Appearance, Urine Hazy (Clear); Bilirubin, Urine Neg (Neg); Blood, Urine 1+ (Neg); Color, Urine Yellow (P-Yellow); Glucose Qualitative, Urine Neg (Neg); Ketones, Urine Neg (Neg); Leukocyte Esterase, Urine 3+ (Neg); Nitrite, Urine Pos (Neg); Protein, Urine 1+ (Neg); Urobilinogen, Urine NORM (Normal)
[2020-10-13 20:47] LABS: Bacteria Many /hpf; Red Blood Cells, Urine 0-2 /hpf (0-2); Squamous Epithelial Cells Few /hpf (Few); White Blood Cells, Urine TNTC /hpf (0-5)
== END | disposition home or self-care (01) ==
LOC: EDSTATUS 15:28 → LAB UVN 19:30
PROVIDERS: Family Medicine
DX: R30.0 Dysuria (principal)
CPT/HCPCS: 81001; 87077; 87086; 87186

== ENCOUNTER → 2020-12-16 | Outpatient (CLI) | payer OTHER ==
[2020-12-16 05:53] LABS: Source, Urine Catheter
[2020-12-16 06:31] LABS: Bilirubin, Urine Neg (Neg); Blood, Urine 2+ (Neg); Glucose Qualitative, Urine Neg (Neg); Ketones, Urine 1+ (Neg); Leukocyte Esterase, Urine 3+ (Neg); Nitrite, Urine Pos (Neg); Protein, Urine 3+ (Neg); Urobilinogen, Urine NORM (Normal)
[2020-12-16 06:45] LABS: Appearance, Urine Hazy (Clear); Bacteria Mod /hpf; Color, Urine Yellow (P-Yellow); Squamous Epithelial Cells Not Seen /hpf (Few); White Blood Cells, Urine 25-50 /hpf (0-5)
[2020-12-16 12:42] LABS: Hemoglobin 10.5 g/dL (11.5-16.0); Mean Corpuscular HGB 23.3 pg (26.0-34.0); Mean Corpuscular HGB Conc 29.2 g/dL (31.5-36.5); Mean Corpuscular Volume 80 fL (80-100); Mean Platelet Volume 10.1 fL (9.1-12.4); Platelet Count 174 K/mm3 (150-400); RDW Coefficient Variation 18.6 % (11.7-14.2); RDW Standard Deviation 53.8 fL (35.1-46.3); Red Blood Cell Count 4.51 M/mm3 (3.80-5.20); White Blood Cell Count 8.75 K/mm3 (4.00-11.30)
[2020-12-16 13:32] LABS: Anion Gap 5 mmol/L (6-16); Blood Urea Nitrogen 15 mg/dL (8-24); Bun/Creatinine Ratio 27.6 (12.0-20.0); CO2, Blood 27 mmol/L (21-32); Calcium, Blood 9.1 mg/dL (8.5-10.1); Chloride, Blood 106 mmol/L (98-108); Creatinine, Blood 0.54 mg/dL (0.40-1.00); Glomerular Filtration Rate >60 (60-); Glucose, Blood 132 mg/dL (70-99); Potassium, Blood 3.6 mmol/L (3.5-5.5); Sodium, Blood 138 mmol/L (136-145)
== END | disposition home or self-care (01) ==
LOC: LAB UVN 05:49 → EDSTATUS 12:57
PROVIDERS: Family Medicine
DX: N39.0 Urinary tract infection, site not specified (principal); Z96.0 Presence of urogenital implants
CPT/HCPCS: 80048; 81001; 85027; 87077; 87086; 87186

== ENCOUNTER → 2021-01-12 | Outpatient (CLI) | payer OTHER ==
[2021-01-12 05:40] LABS: Hematocrit 36.3 % (33.0-51.0); Hemoglobin 10.7 g/dL (11.5-16.0); Mean Corpuscular HGB 23.1 pg (26.0-34.0); Mean Corpuscular HGB Conc 29.5 g/dL (31.5-36.5); Mean Corpuscular Volume 78 fL (80-100); Mean Platelet Volume 10.3 fL (9.1-12.4); Platelet Count 167 K/mm3 (150-400); RDW Coefficient Variation 17.4 % (11.7-14.2); RDW Standard Deviation 49.1 fL (35.1-46.3); Red Blood Cell Count 4.64 M/mm3 (3.80-5.20); White Blood Cell Count 9.11 K/mm3 (4.00-11.30)
[2021-01-12 05:49] LABS: Appearance, Urine Cloudy (Clear); Bilirubin, Urine Neg (Neg); Blood, Urine 2+ (Neg); Color, Urine Yellow (P-Yellow); Glucose Qualitative, Urine Neg (Neg); Ketones, Urine Neg (Neg); Leukocyte Esterase, Urine 3+ (Neg); Nitrite, Urine Pos (Neg); Protein, Urine 2+ (Neg); Urobilinogen, Urine NORM (Normal)
[2021-01-12 05:50] LABS: Anion Gap 5 mmol/L (6-16); Blood Urea Nitrogen 15 mg/dL (8-24); Bun/Creatinine Ratio 26.9 (12.0-20.0); CO2, Blood 30 mmol/L (21-32); Chloride, Blood 109 mmol/L (98-108); Creatinine, Blood 0.56 mg/dL (0.40-1.00); Glomerular Filtration Rate >60 (60-); Glucose, Blood 107 mg/dL (70-99); Potassium, Blood 3.9 mmol/L (3.5-5.5); Sodium, Blood 144 mmol/L (136-145)
[2021-01-12 06:10] LABS: Bacteria Many /hpf; Squamous Epithelial Cells Few /hpf (Few); White Blood Cells, Urine 50-100 /hpf (0-5)
== END | disposition home or self-care (01) ==
LOC: LAB UVN 04:08 → EDSTATUS 13:08
PROVIDERS: Family Medicine
DX: N20.1 Calculus of ureter (principal); R30.0 Dysuria
CPT/HCPCS: 80048; 81001; 85027; 87077; 87086; 87186

== ENCOUNTER → 2021-02-22 | Outpatient (CLI) | payer OTHER ==
[2021-02-22 06:52] LABS: BASOPHILS ABSOLUTE AUTO 0.03 K/mm3 (0.00-0.23); BASOPHILS PERCENT AUTO 0 % (0-2); EOSINOPHILS ABSOLUTE AUTO 0.24 K/mm3 (0.00-0.68); EOSINOPHILS PERCENT AUTO 3 % (0-6); Hematocrit 37.3 % (33.0-51.0); Hemoglobin 11.2 g/dL (11.5-16.0); IMMATURE GRAN ABSOLUTE AUTO 0.01 K/mm3 (0.00-0.10); IMMATURE GRAN PERCENT AUTO 0 % (0-1); LYMPHOCYTES ABSOLUTE AUTO 3.23 K/mm3 (0.84-5.20); LYMPHOCYTES PERCENT AUTO 39 % (21-46); MONOCYTES PERCENT AUTO 6 % (4-13); Mean Corpuscular HGB 23.8 pg (26.0-34.0); Mean Corpuscular Volume 79 fL (80-100); Mean Platelet Volume 10.1 fL (9.1-12.4); NEUTROPHILS ABSOLUTE AUTO 4.32 K/mm3 (1.96-9.15); NEUTROPHILS PERCENT AUTO 52 % (41-73); Platelet Count 163 K/mm3 (150-400); RDW Standard Deviation 48.4 fL (35.1-46.3); White Blood Cell Count 8.33 K/mm3 (4.00-11.30)
== END | disposition home or self-care (01) ==
LOC: LAB UVN 06:46 → EDSTATUS 08:17
PROVIDERS: Internal Medicine
DX: N92.0 Excessive and frequent menstruation with regular cycle (principal); I10 Essential (primary) hypertension
CPT/HCPCS: 85025

== ENCOUNTER → 2021-02-23 | Outpatient (CLI) | payer OTHER ==
[2021-02-23 06:32] LABS: BASOPHILS ABSOLUTE AUTO 0.04 K/mm3 (0.00-0.23); BASOPHILS PERCENT AUTO 1 % (0-2); EOSINOPHILS ABSOLUTE AUTO 0.28 K/mm3 (0.00-0.68); EOSINOPHILS PERCENT AUTO 3 % (0-6); Hematocrit 37.9 % (33.0-51.0); Hemoglobin 11.5 g/dL (11.5-16.0); IMMATURE GRAN ABSOLUTE AUTO 0.01 K/mm3 (0.00-0.10); IMMATURE GRAN PERCENT AUTO 0 % (0-1); LYMPHOCYTES ABSOLUTE AUTO 3.19 K/mm3 (0.84-5.20); LYMPHOCYTES PERCENT AUTO 38 % (21-46); MONOCYTES ABSOLUTE AUTO 0.48 K/mm3 (0.16-1.47); MONOCYTES PERCENT AUTO 6 % (4-13); Mean Corpuscular HGB 23.6 pg (26.0-34.0); Mean Corpuscular HGB Conc 30.3 g/dL (31.5-36.5); Mean Corpuscular Volume 78 fL (80-100); Mean Platelet Volume 10.2 fL (9.1-12.4); NEUTROPHILS ABSOLUTE AUTO 4.43 K/mm3 (1.96-9.15); NEUTROPHILS PERCENT AUTO 53 % (41-73); Platelet Count 221 K/mm3 (150-400); RDW Standard Deviation 47.9 fL (35.1-46.3); Red Blood Cell Count 4.87 M/mm3 (3.80-5.20); White Blood Cell Count 8.43 K/mm3 (4.00-11.30)
[2021-02-23 06:51] LABS: Percent Saturation 7.6 % (15.0-50.0)
== END | disposition home or self-care (01) ==
LOC: LAB UVN 04:25 → EDSTATUS 08:18
PROVIDERS: Internal Medicine
DX: N92.0 Excessive and frequent menstruation with regular cycle (principal)
CPT/HCPCS: 82728; 83540; 83550; 85025

== ENCOUNTER → 2021-09-22 | Outpatient (CLI) | payer OTHER ==
[2021-09-22 06:22] LABS: Source, Urine Catheter
[2021-09-22 06:39] LABS: Bilirubin, Urine Neg (Neg); Blood, Urine Neg (Neg); Glucose Qualitative, Urine Neg (Neg); Ketones, Urine Neg (Neg); Leukocyte Esterase, Urine 3+ (Neg); Nitrite, Urine Pos (Neg); Protein, Urine 2+ (Neg); Specific Gravity, Urine 1.015 (1.003-1.022); Urobilinogen, Urine NORM (Normal)
[2021-09-22 06:54] LABS: Appearance, Urine Hazy (Clear); Bacteria Many /hpf; Color, Urine Yellow (P-Yellow); Red Blood Cells, Urine 0-2 /hpf (0-2); Squamous Epithelial Cells Rare /hpf (Few)
== END | disposition home or self-care (01) ==
LOC: LAB UVN 06:20 → EDSTATUS 11:36
PROVIDERS: Internal Medicine
DX: N39.0 Urinary tract infection, site not specified (principal)
CPT/HCPCS: 81001; 87077; 87086; 87186

== ENCOUNTER → 2021-09-25 | Outpatient (CLI) | payer OTHER ==
[2021-09-25 06:06] LABS: BASOPHILS ABSOLUTE AUTO 0.03 K/mm3 (0.00-0.23); BASOPHILS PERCENT AUTO 0 % (0-2); EOSINOPHILS ABSOLUTE AUTO 0.31 K/mm3 (0.00-0.68); EOSINOPHILS PERCENT AUTO 4 % (0-6); Hematocrit 39.3 % (33.0-51.0); Hemoglobin 12.7 g/dL (11.5-16.0); IMMATURE GRAN ABSOLUTE AUTO 0.02 K/mm3 (0.00-0.10); IMMATURE GRAN PERCENT AUTO 0 % (0-1); LYMPHOCYTES ABSOLUTE AUTO 3.24 K/mm3 (0.84-5.20); LYMPHOCYTES PERCENT AUTO 42 % (21-46); MONOCYTES PERCENT AUTO 5 % (4-13); Mean Corpuscular HGB 29.3 pg (26.0-34.0); Mean Corpuscular HGB Conc 32.3 g/dL (31.5-36.5); Mean Corpuscular Volume 91 fL (80-100); Mean Platelet Volume 10.2 fL (9.1-12.4); NEUTROPHILS ABSOLUTE AUTO 3.79 K/mm3 (1.96-9.15); NEUTROPHILS PERCENT AUTO 49 % (41-73); Platelet Count 163 K/mm3 (150-400); RDW Standard Deviation 45.7 fL (35.1-46.3); Red Blood Cell Count 4.33 M/mm3 (3.80-5.20); White Blood Cell Count 7.79 K/mm3 (4.00-11.30)
[2021-09-25 07:06] LABS: Percent Saturation 18.6 % (15.0-50.0)
== END | disposition home or self-care (01) ==
LOC: LAB UVN 05:56 → EDSTATUS 12:03
PROVIDERS: Internal Medicine
DX: I63.9 Cerebral infarction, unspecified (principal); D50.9 Iron deficiency anemia, unspecified; N92.0 Excessive and frequent menstruation with regular cycle; E72.89 Other specified disorders of amino-acid metabolism; I82.602 Acute embolism and thrombosis of unspecified veins of left upper extremity; Z86.711 Personal history of pulmonary embolism
CPT/HCPCS: 82607; 82728; 82746; 83090; 83540; 83550; 85025

== ENCOUNTER → 2021-09-29 | Outpatient (CLI) | payer OTHER | END | disposition home or self-care (01) | LOC: LAB UVN 05:32 → EDSTATUS 10:21 | DX: E11.9 Type 2 diabetes mellitus without complications (principal) | CPT/HCPCS: 83036 ==

== ENCOUNTER → 2021-11-30 | Outpatient (CLI) | payer OTHER ==
[2021-11-30 06:23] LABS: Source, Urine Clean Catch
[2021-11-30 06:41] LABS: Bilirubin, Urine Neg (Neg); Blood, Urine 1+ (Neg); Glucose Qualitative, Urine Neg (Neg); Ketones, Urine Neg (Neg); Leukocyte Esterase, Urine 2+ (Neg); Nitrite, Urine Neg (Neg); Protein, Urine 2+ (Neg); Specific Gravity, Urine 1.015 (1.003-1.022); Urobilinogen, Urine NORM (Normal); pH, Urine 6.5 (5.0-8.0)
[2021-11-30 06:50] LABS: Appearance, Urine Hazy (Clear); Bacteria Many /hpf; Color, Urine Yellow (P-Yellow); Squamous Epithelial Cells Few /hpf (Few); White Blood Cells, Urine 25-50 /hpf (0-5)
== END | disposition home or self-care (01) ==
LOC: LAB UVN 02:00 → EDSTATUS 11:14
PROVIDERS: Internal Medicine
DX: R39.9 Unspecified symptoms and signs involving the genitourinary system (principal)
CPT/HCPCS: 81001; 87077; 87086; 87186

== ENCOUNTER → 2022-04-05 | Outpatient (CLI) | payer OTHER | END | disposition home or self-care (01) | LOC: LAB UVN 21:01 | DX: I63.9 Cerebral infarction, unspecified (principal) ==

== ENCOUNTER → 2022-04-12 | Outpatient (CLI) | payer OTHER | END | disposition home or self-care (01) | LOC: LAB UVN 04:31 | DX: E11.9 Type 2 diabetes mellitus without complications (principal) ==

== ENCOUNTER → 2022-04-20 | Outpatient (CLI) | payer OTHER | END | disposition home or self-care (01) | LOC: LAB UVN 20:10 | DX: D50.9 Iron deficiency anemia, unspecified (principal); E72.89 Other specified disorders of amino-acid metabolism ==

== ENCOUNTER → 2022-04-22 | Outpatient (CLI) | payer OTHER | END | disposition home or self-care (01) | LOC: LAB UVN 03:20 | DX: D72.829 Elevated white blood cell count, unspecified (principal) ==

== ENCOUNTER → 2022-04-26 | Outpatient (CLI) | payer OTHER | END | disposition home or self-care (01) | LOC: LAB UVN 07:56 | DX: N13.39 Other hydronephrosis (principal); D64.9 Anemia, unspecified; N92.6 Irregular menstruation, unspecified ==

== ENCOUNTER 2022-06-18 08:59 | Inpatient (IN) | payer OTHER ==
[~2022-06-18] VITALS: Ht 177.8 cm; Wt 92.5 kg
[2022-06-18 09:47] LABS: BASOPHILS ABSOLUTE AUTO 0.05 K/mm3 (0.00-0.23); BASOPHILS PERCENT AUTO 0 % (0-2); EOSINOPHILS PERCENT AUTO 4 % (0-6); IMMATURE GRAN ABSOLUTE AUTO 0.01 K/mm3 (0.00-0.10); IMMATURE GRAN PERCENT AUTO 0 % (0-1); LYMPHOCYTES ABSOLUTE AUTO 3.51 K/mm3 (0.84-5.20); LYMPHOCYTES PERCENT AUTO 30 % (21-46); MONOCYTES ABSOLUTE AUTO 0.62 K/mm3 (0.16-1.47); MONOCYTES PERCENT AUTO 5 % (4-13); Mean Corpuscular HGB 27.1 pg (26.0-34.0); Mean Corpuscular HGB Conc 29.8 g/dL (31.5-36.5); Mean Corpuscular Volume 91 fL (80-100); Mean Platelet Volume 11.1 fL (9.1-12.4); NEUTROPHILS ABSOLUTE AUTO 7.11 K/mm3 (1.96-9.15); NEUTROPHILS PERCENT AUTO 60 % (41-73); Platelet Count 182 K/mm3 (150-400); RDW Coefficient Variation 18.6 % (11.7-14.2); RDW Standard Deviation 59.2 fL (35.1-46.3); Red Blood Cell Count 6.27 M/mm3 (3.80-5.20)
[2022-06-18 10:03] LABS: Hematocrit 57.1 % (33.0-51.0)
[2022-06-18 10:55] LABS: Calcium, Ionized (POC) 1.26 mmol/L (1.10-1.46); Chloride (POC) 121 mmol/L (98-108); Creatinine (POC) 1.1 mg/dL (0.6-1.0); Glucose (ISTAT POC) 543 mg/dL (70-99); Hemoglobin (POC) 17.3 g/dL (12.0-16.0); Potassium (POC) 5.7 mmol/L (3.5-5.5); Sodium (POC) 158 mmol/L (135-148); Total CO2 (POC) 26 mmol/L (21-32)
[2022-06-18 11:09] LABS: Source, Urine Straight Cath
[2022-06-18 11:13] LABS: Appearance, Urine Hazy (Clear); Bilirubin, Urine Neg (Neg); Blood, Urine Neg (Neg); Color, Urine Yellow (P-Yellow); Glucose Qualitative, Urine 4+ (Neg); Ketones, Urine 3+ (Neg); Leukocyte Esterase, Urine Neg (Neg); Nitrite, Urine Neg (Neg); Protein, Urine Neg (Neg); Urobilinogen, Urine NORM (Normal)
[2022-06-18 11:17] LABS: Base Excess Venous -3.2 mmol/L; Bicarbonate Venous 22.2 mmol/L (24.0-30.0); PCO2 Venous 38.5 mmHg (38-42); pH Blood Venous 7.37 (7.34-7.37)
[2022-06-18] MEDS ORDERED: BISA5EC PO (11:20)
[2022-06-18] MEDS ORDERED: Flonase 0.05% N16 GM (11:21)
[2022-06-18] MEDS ORDERED: INSULANI SC (11:21)
[2022-06-18] MEDS ORDERED: MIRALAX17 GM PO (11:22)
[2022-06-18] MEDS ORDERED: SENN187 PO (11:24)
[2022-06-18 11:26] LABS: Bacteria Many /hpf; Hyaline Casts 0-2 /lpf (0-2); Red Blood Cells, Urine 0-2 /hpf (0-2); Squamous Epithelial Cells Mod /hpf (Few)
[2022-06-18 11:27] LABS: Beta-hydroxybutyrate 21.6 mg/dL (0.2-2.8)
[2022-06-18 11:46] LABS: Albumin, Blood 3.1 g/dL (3.4-5.0); Albumin/Globulin Ratio 0.7 (0.8-1.8); Bilirubin, Total 0.4 mg/dL (0.1-1.0); Bun/Creatinine Ratio 33.1 (12.0-20.0); Calcium, Blood 9.6 mg/dL (8.5-10.1); Creatinine, Blood 0.91 mg/dL (0.40-1.00); Globulin, Blood 4.7 g/dL (2.2-4.0); Magnesium, Blood 4.3 mg/dL (1.6-2.4); Potassium, Blood 4.7 mmol/L (3.5-5.5); Total Protein, Blood 7.8 g/dL (6.4-8.2)
[2022-06-18 12:22] LABS: Influenza A, PCR NEGATIVE (NEGATIVE); Influenza B, PCR NEGATIVE (NEGATIVE); Resp Syncytial Virus, PCR NEGATIVE (NEGATIVE); SARS-Cov-2 (COVID-19) PCR, MMC NEGATIVE (NEGATIVE)
[2022-06-18] MEDS ORDERED: ONDA4ODT MM (15:26)
[2022-06-18 15:50] LABS: Calcium, Ionized (POC) 1.26 mmol/L (1.10-1.46); Chloride (POC) 118 mmol/L (98-108); Creatinine (POC) 0.8 mg/dL (0.6-1.0); Glucose (ISTAT POC) 430 mg/dL (70-99); Hemoglobin (POC) 15.3 g/dL (12.0-16.0); Potassium (POC) 4.2 mmol/L (3.5-5.5); Sodium (POC) 157 mmol/L (135-148); Total CO2 (POC) 26 mmol/L (21-32)
[2022-06-18 18:01] LABS: Bun/Creatinine Ratio 36.9 (12.0-20.0); Calcium, Blood 9.5 mg/dL (8.5-10.1); Creatinine, Blood 0.71 mg/dL (0.40-1.00); Potassium, Blood 4.2 mmol/L (3.5-5.5)
--- NOTE | 2022-06-18 19:29 | NUR ---
ARRIVAL TO ICU PATIENT ARRIVED TO UNIT AT 1810. PATIENT NONVERBAL, ABLE TO COMMUNICATE WITH BLINKING OT FOR YES AND TWICE FOR NO. PATIENT HAS FUNCTIONAL PARAPLEGIA. PATIENT ABLE TO MOVE L ARM SLIGHTLY. PATIENT AFEBRILE. PATIENT DENIES PAIN. PATIENT SATTING 90% AND GREATER ON RA. PATIENT IN SR, HR 80S TO 90S. SBP 1-TEENS TO 120S. JOSSELINE HOSE IN PLACE. DYSPHAGIA AT BASELINE. GRANDMOTHER STATES THAT PATIENT TAKES FLUIDS THICKENED WITH SPOON AND FOOD MECHANICAL SOFT. PATIENT NPO AT THIS TIME. ATTENDS IN PLACE. GRANDMOTHER STATES THAT PATIENT WILL SIGNAL BY POINTING WITH L HAND WHEN SHE NEEDS THE BEDPAN TO VOID OR HAVE A BOWEL MOVEMENT. PRESSURE SORE NOTED TO R BUTTOCK. FISSURES/ OPEN SKIN CRACKS NOTED TO R GROIN FOLD. BLOOD SUGAR DECREASED FROM 430 IN ER TO 392 HERE IN ICU. INSULIN DRIP AT 9 UNITS/ HOUR AND NS INFUSING AT 250 MLS/ HOUR. BMPS Q4H. COMPLETED ADMISSION HISTORY WITH AKILA CASTANEDA. REPORT GIVEN TO ASSUMING SERVICE RESTORER EMERGENCY NURSE.
--- NOTE | 2022-06-18 19:45 | NUR ---
ASSUMED CARE OF PT, REPORT RECEIVED. PT IS RESTING QUIETLY RECLINING IN BED WITH GRANDMOTHER/GUARDIAN AT BEDSIDE, GTTS REVIEWED AND VERIFIED, WILL MONITOR HOURLY BLOOD GLUCOSE LEVELS AND TITRATE INSULIN PER ORDERS. PLAN TO CALL FOR ORDERS WITH CBG NEAR 300. PLAN OF CARE REVIEWED WITH PT AND GRANDMOTHER, UNDERSTANDING VERB BY GRANDMOTHER. WILL REQUEST MAR COPY FROM [facility] FOR MEDICATION RECONCILLIATION.
[2022-06-18 21:54] LABS: Bun/Creatinine Ratio 32.9 (12.0-20.0); Calcium, Blood 8.5 mg/dL (8.5-10.1); Creatinine, Blood 0.67 mg/dL (0.40-1.00); Phosphorus, Blood 1.4 mg/dL (2.5-4.9); Potassium, Blood 3.1 mmol/L (3.5-5.5)
[2022-06-18] MEDS ORDERED: B-12500 MC2 PO (22:21)
[2022-06-18] MEDS ORDERED: BISA10S PR (22:23)
[2022-06-18] MEDS ORDERED: DULCOLAX400 MG/5 M PO (22:27)
[2022-06-18] MEDS ORDERED: NOVOLOG100 UNIT/3 SC (22:28)
[2022-06-18] MEDS ORDERED: DERMAPHOR228 GM TOP (22:30)
[2022-06-18] MEDS ORDERED: PRENATAL TABLE1 EAC2 PO (22:30)
[2022-06-18] MEDS ORDERED: ARTIFICIAL TEAR15 M2 BOTHEYES (22:31)
--- NOTE | 2022-06-19 01:38 | NUR ---
STENT CARD STENT CARD GIVEN TO PT SPOUSE, EDUCATION PROVIDED RE IMPORTANCE OF PT CARRYING STENT CARD IN HER WALLET.
[2022-06-19 05:15] LABS: Hematocrit 43.3 % (33.0-51.0); Hemoglobin 13.2 g/dL (11.5-16.0); Mean Corpuscular HGB 27.5 pg (26.0-34.0); Mean Corpuscular HGB Conc 30.5 g/dL (31.5-36.5); Mean Corpuscular Volume 90 fL (80-100); Mean Platelet Volume 10.8 fL (9.1-12.4); Platelet Count 146 K/mm3 (150-400); RDW Coefficient Variation 17.2 % (11.7-14.2); RDW Standard Deviation 56.9 fL (35.1-46.3)
[2022-06-19 05:52] LABS: Albumin, Blood 2.3 g/dL (3.4-5.0); Bilirubin, Total 0.3 mg/dL (0.1-1.0); Bun/Creatinine Ratio 31.2 (12.0-20.0); Calcium, Blood 8.2 mg/dL (8.5-10.1); Creatinine, Blood 0.64 mg/dL (0.40-1.00); Potassium, Blood 4.3 mmol/L (3.5-5.5)
[2022-06-19 05:53] LABS: Albumin/Globulin Ratio 0.7 (0.8-1.8); Globulin, Blood 3.3 g/dL (2.2-4.0); Magnesium, Blood 2.1 mg/dL (1.6-2.4); Total Protein, Blood 5.6 g/dL (6.4-8.2)
--- NOTE | 2022-06-19 05:56 | NUR ---
PT RESTS QUIETLY THROUGHOUT SHIFT, GRANDMOTHER REMAINS AT BEDSIDE THROUGHOUT NOC TO ASSIST WITH PT COMMUNICATION. THIS AM PT AWAKENS EASILY TO VERBAL STIMULI AND IS NOTED SMILING AND GIGGLING WITH GRANDMOTHER. SHE ANSWERS YES WHEN ASKED IF SHE IS FEELING BETTER. INSULIN GTT HAS BEEN OFF SINCE 2300, LANTUS WAS GIVEN PER ORDERS AND PO INTAKE PROVIDED. PT TOLERATED SNACK WELL AT 2300 AND THICKENED TEA. SHE IS ABLE TO USE EASY TOUCH CALL LIGHT AND CONTINUES TO ANSWER YES/NO QUESTIONS WELL. PER GRANDMOTHER PT'S DIET IS NORMALLY MECHANICAL SOFT WITH MEAT AND VEGETABLES MINCED AND MOISTENED. SHE STATES THAT SPEECH THERAPY HAS STATED THAT PT IS ABLE TO TOLERATE THIN LIQUIDS HOWEVER PT DOES NOT LIKE THEM AND PREFERS THICKENED LIQUIDS. SHE NORMALLY TAKES HER PILLS WHOLE IN PUDDING SHE DOES NOT LIKE APPLESAUSE WITH THE EXCEPTION OF METFORMIN WHICH IS TOO LARGE TO TAKE WHOLE.
--- NOTE | 2022-06-19 08:00 | NUR ---
Received report from Kaela BLUM. Patient awake in bed with grandmother at bedside. Patient is on Ra and sats >90%. She is able to communicate simple needsat times. She has 20ga PowerGlide to DOYLE and is infusing 1/2 NS at 75 ml/hr. She has attends in place and grandmother calls for assistance when needing bedpan. She also has 24ga IV to LH. Repositioned and boossted in bed.
--- NOTE | 2022-06-19 10:30 | NUR ---
Bath has been given and linen change. All meds given with chocolate pudding and whole and she tolerated well. Grandmother remains at bedside and is doing alot of care for patient. Repositioned and boosted.
--- NOTE | 2022-06-19 13:11 | NUR ---
Patient has been resting off and on and when awake interacting with staff. We have had her on bedpan several times with only gas and urine. She remains in attends and tells her grandmother when she needs to go whom is at bedside. She remains on RA and sats 94%.
--- NOTE | 2022-06-19 17:45 | NUR ---
Gave report to Toño BLUM. Patient transferred with all belongings by ICU bed to PCU 20 and was a lift transfer. Grandmother followed and then assisted her with dinner. CBG was 341 and covered per SS on DEC.
--- NOTE | 2022-06-19 18:23 | NUR ---
SHIFT SUMMARY: RECEIVED PT TO PCU APPROX 1730 AFTER RECEIVING REPORT FROM KULWANT REYNOLDS. PT ARRIVES ALERT, ACCOMPANIED BY GRANDMOTHER. PT AND GRANDMOTHER ORIENTED TO ROOM. PT ASSISTED WITH BEDPAN USE, ABLE TO AID WITH TURNS, URINE OUTPUT DOCUMENTED. AT THIS TIME, PT IS RESTING IN BED WITH GRANDMOTHER AND DINNER TRAY AT BEDSIDE. WILL CONTINUE TO MONITOR AND TREAT ACCORDINGLY UNTIL CHANGE OF SHIFT.
[2022-06-20 04:46] LABS: Hematocrit 41.8 % (33.0-51.0); Hemoglobin 13.1 g/dL (11.5-16.0); Mean Corpuscular HGB 27.6 pg (26.0-34.0); Mean Corpuscular HGB Conc 31.3 g/dL (31.5-36.5); Mean Corpuscular Volume 88 fL (80-100); Mean Platelet Volume 10.6 fL (9.1-12.4); Platelet Count 135 K/mm3 (150-400); RDW Coefficient Variation 16.5 % (11.7-14.2); Red Blood Cell Count 4.74 M/mm3 (3.80-5.20); White Blood Cell Count 6.72 K/mm3 (4.00-11.30)
[2022-06-20 05:12] LABS: Bun/Creatinine Ratio 19.4 (12.0-20.0); Calcium, Blood 8.1 mg/dL (8.5-10.1); Creatinine, Blood 0.62 mg/dL (0.40-1.00); Potassium, Blood 3.7 mmol/L (3.5-5.5)
--- NOTE | 2022-06-20 05:19 | NUR ---
Assumed care of pt at 1900. DALILA A/O status. Patient blinks and makes noises to yes/no questions. Grandmother at bedside able to interpret. R facial droop and contracture to R wrist, with small amount of gross movement to R side. L side with full gross movements. Maintains around 93% on RA while awake. Desats to 88-89 while asleep, 1L NC applied and sats 94% while asleep, LS clear upper and dim at bases, shallow breathing pattern. SR 80's on tele. VSS. Minor trace BLE edema. 1 large BM at beginning of shift, hyperactive bowel tones x4. Attends in place. Minor redness to R pannus noted. Q2 turns. CBG 365. No acute changes. Will report to anat BLUM.
--- NOTE | 2022-06-20 08:15 | NUR ---
ASSUMPTION OF CARE JESSE BLUM AND SACHI BLUM ASSUMED CARE OF PATIENT AT 0700. REPORT TAKEN FROM PILAR BLUM. PATIENT IS ON BEDPAN CURRENTLY WITH GRANDMOTHER AT BEDSIDE. GRANDMOTHER CONTINUES TO HELP WITH CARE WITH FEEDING AND TURNING NEEDS PER PILAR BLUM. VITALS STABLE. NO REPORTS OF PAIN. PATIENT BEING FED [facility] SOFT BREAKFAST WITH THICKENED LIQUIDS BY GRANDMOTHER. PATIENT IS SMILING AND TRACKING THIS NURSE WITH EYES. PATIENT UNABLE TO FORM WORDS BUT NODS AND MAKES NOISES TO ATTEMPT TO ANSWER QUESTIONS. BED IN LOWEST POSITION AND CALL LIGHT WITHIN REACH.
[2022-06-20] MEDS ORDERED: Flonase 0.05% N16 GM (11:46)
[2022-06-20] MEDS ORDERED: INSULANI SC (11:47)
[2022-06-20 11:57] LABS: Glucose, Blood 568 mg/dL (70-99)
[2022-06-20] MEDS ORDERED: METF500 PO (12:01)
--- NOTE | 2022-06-20 12:15 | NUR ---
AFTERNOON BLOOD SUGAR CHECK WAS "HI", LAB CONFIRMATION WAS 568. ORIENTING KULWANT MOLINA CALLED DR MURILLO, NEW ORDERS OBTAINED TO COVER WITH 20 UNITS SHORT ACTING, PLUS 5 UNITS OF COVERAGE FOR LUNCH, FOR A TOTAL OF 25 UNITS. BLOOD SUGAR WILL BE RECHECKED IN 2 HOURS PER MD ORDER. PLAN REMAINS FOR DISCHARGE BACK TO FACILITY. COVID SWAB BEING OBTAINED NOW FOR CLEARANCE TO RETURN TO [facility]
[2022-06-20 13:21] LABS: SARS-Cov-2 (COVID-19) PCR, MMC NEGATIVE (NEGATIVE)
--- NOTE | 2022-06-20 16:49 | NUR ---
PT D/C DURING DOWNTIME, SEE PAPER DOWN TIME CHARTING
== END 2022-06-20 15:05 | disposition home or self-care (01) | DRG 637 ==
LOC: ER 08:59 → ICUW 16:46 → PCU 16:46 → ICUW 17:48 → PCU 06-19 17:30
PROVIDERS: Internal Medicine; Student in an Organized Health Care Education/Training Program; ADMIT Family Medicine
DX: E11.00 Type 2 diabetes mellitus with hyperosmolarity without nonketotic hyperglycemic-hyperosmolar coma (NKHHC) (principal); R53.2 Functional quadriplegia; N17.9 Acute kidney failure, unspecified; E87.0 Hyperosmolality and hypernatremia; E86.0 Dehydration; K56.41 Fecal impaction; D72.829 Elevated white blood cell count, unspecified; R13.10 Dysphagia, unspecified; E11.65 Type 2 diabetes mellitus with hyperglycemia; Z20.822 Contact with and (suspected) exposure to COVID-19; Z96.0 Presence of urogenital implants; R94.31 Abnormal electrocardiogram [ECG] [EKG]; Z86.79 Personal history of other diseases of the circulatory system; Z79.4 Long term (current) use of insulin; Z87.820 Personal history of traumatic brain injury; Z87.442 Personal history of urinary calculi; Z86.14 Personal history of Methicillin resistant Staphylococcus aureus infection; Z98.890 Other specified postprocedural states; Z79.01 Long term (current) use of anticoagulants; Z87.448 Personal history of other diseases of urinary system; Z93.1 Gastrostomy status; Z93.0 Tracheostomy status; Z88.2 Allergy status to sulfonamides; Z79.84 Long term (current) use of oral hypoglycemic drugs; Z79.899 Other long term (current) drug therapy; Z79.2 Long term (current) use of antibiotics; Z87.01 Personal history of pneumonia (recurrent); Z87.440 Personal history of urinary (tract) infections; Z86.19 Personal history of other infectious and parasitic diseases
CPT/HCPCS: 0241U; 36415; 71045; 74176; 80047; 80048; 80053; 81001; 82010; 82803; 82947; 83036; 83605; 83735; 83930; 84100; 84145; 85014; 85025; 85027; 87040; 87086; 93005; 93010; 96361; 96365; 99285-25; A9270; J0696; J1815; J2405; J3475; J7030; J7040; J7120; U0004

== ENCOUNTER → 2023-05-11 | Outpatient (CLI) | payer OTHER ==
[~2023-05-11] MED LIST changes: +ARTIFICIAL TEAR15 M2 BOTHEYES; +B-12500 MC2 PO; +DERMAPHOR228 GM TOP; +DULCOLAX400 MG/5 M PO; +INSULANI SC; +METF500 PO; +NOVOLOG100 UNIT/3 SC; +ONDA4ODT MM
[2023-05-11 21:31] LABS: BASOPHILS ABSOLUTE AUTO 0.05 K/mm3 (0.00-0.23); BASOPHILS PERCENT AUTO 0 % (0-2); EOSINOPHILS ABSOLUTE AUTO 0.32 K/mm3 (0.00-0.68); EOSINOPHILS PERCENT AUTO 3 % (0-6); Hematocrit 42.6 % (33.0-51.0); Hemoglobin 12.9 g/dL (11.5-16.0); IMMATURE GRAN ABSOLUTE AUTO 0.03 K/mm3 (0.00-0.10); IMMATURE GRAN PERCENT AUTO 0 % (0-1); LYMPHOCYTES ABSOLUTE AUTO 4.43 K/mm3 (0.84-5.20); LYMPHOCYTES PERCENT AUTO 38 % (21-46); MONOCYTES ABSOLUTE AUTO 0.56 K/mm3 (0.16-1.47); MONOCYTES PERCENT AUTO 5 % (4-13); Mean Corpuscular HGB Conc 30.3 g/dL (31.5-36.5); Mean Corpuscular Volume 86 fL (80-100); Mean Platelet Volume 10.3 fL (9.1-12.4); NEUTROPHILS ABSOLUTE AUTO 6.35 K/mm3 (1.96-9.15); NEUTROPHILS PERCENT AUTO 54 % (41-73); Platelet Count 166 K/mm3 (150-400); RDW Coefficient Variation 17.5 % (11.7-14.2); RDW Standard Deviation 53.1 fL (35.1-46.3); Red Blood Cell Count 4.97 M/mm3 (3.80-5.20); White Blood Cell Count 11.74 K/mm3 (4.00-11.30)
[2023-05-13 15:08] LABS: IRON, SERUM 39 ug/dL (27-159)
[2023-05-14 12:51] LABS: FERRITIN 66 ng/mL (15-150)
== END ==
LOC: EDSTATUS 10:41 → LAB QU 21:09
DX: I63.9 Cerebral infarction, unspecified (principal); I82.602 Acute embolism and thrombosis of unspecified veins of left upper extremity
CPT/HCPCS: 82728; 83540; 85025

== ENCOUNTER 2024-07-29 14:31 | Emergency (ER) | payer OTHER ==
[~2024-07-29] VITALS: Ht 175.3 cm; Wt 104.8 kg
[2024-07-29 16:00] LABS: Hematocrit 36.6 % (33.0-51.0); Hemoglobin 10.5 g/dL (11.5-16.0); Mean Corpuscular HGB 20.8 pg (26.0-34.0); Mean Corpuscular HGB Conc 28.7 g/dL (31.5-36.5); Mean Corpuscular Volume 73 fL (80-100); Mean Platelet Volume 9.4 fL (9.1-12.4); Platelet Count 173 K/mm3 (150-400); RDW Coefficient Variation 20.4 % (11.7-14.2); Red Blood Cell Count 5.04 M/mm3 (3.80-5.20); White Blood Cell Count 9.81 K/mm3 (4.00-11.30)
[2024-07-29 16:07] LABS: Source, Urine Straight Cath
[2024-07-29 16:15] LABS: Albumin, Blood 2.9 g/dL (3.4-5.0); Albumin/Globulin Ratio 0.7 (0.8-1.8); Bilirubin, Total 0.3 mg/dL (0.1-1.0); Bun/Creatinine Ratio 23.3 (12.0-20.0); Calcium, Blood 9.4 mg/dL (8.5-10.1); Creatinine, Blood 0.52 mg/dL (0.40-1.00); Globulin, Blood 4.4 g/dL (2.2-4.0); Potassium, Blood 3.8 mmol/L (3.5-5.5); Total Protein, Blood 7.3 g/dL (6.4-8.2)
[2024-07-29 16:17] LABS: Appearance, Urine Cloudy (Clear); Bilirubin, Urine Neg (Neg); Blood, Urine 4+ (Neg); Color, Urine Yellow (P-Yellow); Glucose Qualitative, Urine 4+ (Neg); Ketones, Urine Neg (Neg); Leukocyte Esterase, Urine 1+ (Neg); Nitrite, Urine Pos (Neg); Protein, Urine 1+ (Neg); Specific Gravity, Urine 1.025 (1.003-1.022); Urobilinogen, Urine NORM (Normal)
[2024-07-29 16:33] LABS: Bacteria Many /hpf; Granular Casts 0-2 /lpf (0); Hyaline Casts 0-2 /lpf (0-2); Squamous Epithelial Cells Few /hpf (Few)
[2024-07-29 16:35] LABS: BASOPHILS PERCENT MAN 0 % (0-2); EOSINOPHILS ABSOLUTE MAN 0.49 K/mm3 (0.00-0.68); EOSINOPHILS PERCENT MAN 5 % (0-6); LYMPHOCYTES % ATYPICAL MANUAL 3 % (0-0); LYMPHOCYTES ABSOLUTE MAN 2.35 K/mm3 (0.84-5.20); LYMPHOCYTES PERCENT MAN 21 % (21-46); MONOCYTES ABSOLUTE MAN 0.49 K/mm3 (0.16-1.47); MONOCYTES PERCENT MAN 5 % (4-13); NEUTROPHILS ABSOLUTE MAN 6.47 K/mm3 (1.96-9.15); SEG NEUTROPHILS PERCENT MAN 66 % (41-73); TOTAL CELLS COUNTED 100
[2024-07-29] MEDS ORDERED: Nitrofurantoin/Nitrofuran Mac 100 MG Cap PO ONE (19:25)
[2024-07-29] MEDS ORDERED: MACRODANTIN100 M1 PO (19:35)
[2024-07-29 19:51] VITALS: BP 113/73
== END 2024-07-29 22:11 | disposition home or self-care (01) ==
LOC: ER 14:31
PROVIDERS: Student in an Organized Health Care Education/Training Program
DX: N39.0 Urinary tract infection, site not specified (principal); R09.02 Hypoxemia; E11.9 Type 2 diabetes mellitus without complications; Z79.52 Long term (current) use of systemic steroids; Z79.4 Long term (current) use of insulin; Z79.899 Other long term (current) drug therapy; Z88.2 Allergy status to sulfonamides
CPT/HCPCS: 51701; 71045; 71260; 74177; 80053; 81001; 84484; 85025; 87077; 87086; 87186; 93005; 93010; 99285-25; A9270; Q9967

== ENCOUNTER 2024-12-06 16:19 | Emergency (ER) | payer OTHER ==
[~2024-12-06] VITALS: Ht 157.5 cm; Wt 81.7 kg
[~2024-12-06 16:19] MED LIST changes: -CRANBERRY450 M1 PO; -PREPARATION H1 EAC4 TOP; -SENNA LAXATIVE8.6 MG PO; -STEGLATRO5 MG PO
[2024-12-06 19:40] LABS: International Normalized Ratio 1.2; Prothrombin Time Results 12.7 Sec (9.7-11.5)
[2024-12-06 21:15] VITALS: BP 113/82
[2024-12-07] MEDS ORDERED: PREPARATION H1 EAC4 TOP (09:39)
[2024-12-07] MEDS ORDERED: SENNA LAXATIVE8.6 MG PO (09:39)
[2024-12-07] MEDS ORDERED: STEGLATRO5 MG PO (09:39)
[2024-12-07] MEDS ORDERED: ONDA4ODT MM (09:40)
[2024-12-07] MEDS ORDERED: ACET325 PO (17:17)
[2024-12-07] MEDS ORDERED: CRANBERRY450 M1 PO (17:18)
== END 2024-12-06 21:30 | disposition home or self-care (01) ==
LOC: ER 16:19
PROVIDERS: Student in an Organized Health Care Education/Training Program
DX: N93.9 Abnormal uterine and vaginal bleeding, unspecified (principal); N83.202 Unspecified ovarian cyst, left side; D64.9 Anemia, unspecified; E11.9 Type 2 diabetes mellitus without complications; G82.50 Quadriplegia, unspecified; S06.9XAS Unspecified intracranial injury with loss of consciousness status unknown, sequela; D50.9 Iron deficiency anemia, unspecified; N92.6 Irregular menstruation, unspecified; Z86.73 Personal history of transient ischemic attack (TIA), and cerebral infarction without residual deficits; Z88.2 Allergy status to sulfonamides; Z79.01 Long term (current) use of anticoagulants; Z79.4 Long term (current) use of insulin; Z79.84 Long term (current) use of oral hypoglycemic drugs; Z79.899 Other long term (current) drug therapy; X58.XXXS Exposure to other specified factors, sequela
CPT/HCPCS: 76856; 84703; 85025; 85610; 85730; 99284-25

== ENCOUNTER → 2024-12-06 | Outpatient (CLI) | payer OTHER ==
[~2024-12-06] MED LIST changes: +CRANBERRY450 M1 PO; +MACRODANTIN100 M1 PO; +PREPARATION H1 EAC4 TOP; +SENNA LAXATIVE8.6 MG PO; +STEGLATRO5 MG PO
[2024-12-06 11:29] LABS: BASOPHILS ABSOLUTE AUTO 0.05 K/mm3 (0.00-0.23); BASOPHILS PERCENT AUTO 0 % (0-2); EOSINOPHILS ABSOLUTE AUTO 0.35 K/mm3 (0.00-0.68); EOSINOPHILS PERCENT AUTO 3 % (0-6); Hematocrit 30.5 % (33.0-51.0); Hemoglobin 8.9 g/dL (11.5-16.0); IMMATURE GRAN ABSOLUTE AUTO 0.06 K/mm3 (0.00-0.10); IMMATURE GRAN PERCENT AUTO 1 % (0-1); LYMPHOCYTES ABSOLUTE AUTO 3.66 K/mm3 (0.84-5.20); LYMPHOCYTES PERCENT AUTO 28 % (21-46); MONOCYTES ABSOLUTE AUTO 0.72 K/mm3 (0.16-1.47); MONOCYTES PERCENT AUTO 5 % (4-13); Mean Corpuscular HGB 27.1 pg (26.0-34.0); Mean Corpuscular HGB Conc 29.2 g/dL (31.5-36.5); Mean Corpuscular Volume 93 fL (80-100); Mean Platelet Volume 10.1 fL (9.1-12.4); NEUTROPHILS ABSOLUTE AUTO 8.47 K/mm3 (1.96-9.15); NEUTROPHILS PERCENT AUTO 64 % (41-73); NRBC ABSOLUTE 0.06 K/mm3 (0.00-0.02); NRBC Auto 0.5 /100 WBC (0.0-0.2); Platelet Count 296 K/mm3 (150-400); RDW Coefficient Variation 19.9 % (11.7-14.2); RDW Standard Deviation 64.5 fL (35.1-46.3); Red Blood Cell Count 3.28 M/mm3 (3.80-5.20); White Blood Cell Count 13.31 K/mm3 (4.00-11.30)
== END | disposition home or self-care (01) ==
LOC: LAB SHORT 11:20
PROVIDERS: Family Medicine
DX: D50.9 Iron deficiency anemia, unspecified (principal); N92.6 Irregular menstruation, unspecified
CPT/HCPCS: 85025

== ENCOUNTER 2024-12-07 08:50 | Inpatient (IN) | payer OTHER ==
[2024-12-07] VITALS (41 sets, daily range): BP systolic 58–114; BP diastolic 33–80
[~2024-12-07] VITALS: Ht 170.2 cm; Wt 98.2 kg
[2024-12-07] MEDS ORDERED: NS 1,000 ML IV SCH (08:55)
[2024-12-07 09:11] LABS: Base Excess Venous 2.1 mmol/L; Bicarbonate Venous 26.3 mmol/L (24.0-30.0); pH Blood Venous 7.49 (7.34-7.37)
[2024-12-07] MEDS ORDERED: Lactated Ringer's 1,000 ML IV SCH ×3 (09:15→15:00)
[2024-12-07 09:18] LABS: BASOPHILS PERCENT AUTO 0 % (0-2); EOSINOPHILS ABSOLUTE AUTO 0.37 K/mm3 (0.00-0.68); EOSINOPHILS PERCENT AUTO 1 % (0-6); Hematocrit 23.4 % (33.0-51.0); Hemoglobin 7.2 g/dL (11.5-16.0); IMMATURE GRAN ABSOLUTE AUTO 0.18 K/mm3 (0.00-0.10); IMMATURE GRAN PERCENT AUTO 1 % (0-1); LYMPHOCYTES ABSOLUTE AUTO 5.84 K/mm3 (0.84-5.20); LYMPHOCYTES PERCENT AUTO 23 % (21-46); MONOCYTES ABSOLUTE AUTO 1.26 K/mm3 (0.16-1.47); MONOCYTES PERCENT AUTO 5 % (4-13); Mean Corpuscular HGB 27.8 pg (26.0-34.0); Mean Corpuscular HGB Conc 30.8 g/dL (31.5-36.5); Mean Corpuscular Volume 90 fL (80-100); NEUTROPHILS PERCENT AUTO 70 % (41-73); NRBC ABSOLUTE 0.33 K/mm3 (0.00-0.02); NRBC Auto 1.3 /100 WBC (0.0-0.2); Platelet Count 356 K/mm3 (150-400); RDW Standard Deviation 61.3 fL (35.1-46.3); Red Blood Cell Count 2.59 M/mm3 (3.80-5.20); White Blood Cell Count 25.75 K/mm3 (4.00-11.30)
[2024-12-07 09:24] LABS: IMMATURE RETIC FRACTION 41.7 % (2.3-16.0); RETIC HGB EQUIVALENT 24.1 pg (28.20-36.60); RETICULOCYTE ABSOLUTE 0.168 M/mm3 (0.0200-0.1100); RETICULOCYTE COUNT PERCENT 6.46 % (0.50-2.50)
[2024-12-07] MEDS ORDERED: Piperacillin/Tazobactam Sod 3.375 GM in NS 100 ML IV ONE (09:30)
[2024-12-07] MEDS ORDERED: PREPARATION H1 EAC4 TOP (09:39)
[2024-12-07] MEDS ORDERED: SENNA LAXATIVE8.6 MG PO (09:39)
[2024-12-07] MEDS ORDERED: STEGLATRO5 MG PO (09:39)
[2024-12-07] MEDS ORDERED: ONDA4ODT MM (09:40)
[2024-12-07 09:47] LABS: Albumin, Blood 2.7 g/dL (3.4-5.0); Albumin/Globulin Ratio 0.6 (0.8-1.8); Beta-hydroxybutyrate 4.3 mg/dL (0.2-2.8); Bilirubin, Total 0.2 mg/dL (0.1-1.0); Bun/Creatinine Ratio 25.3 (12.0-20.0); Calcium, Blood 9.1 mg/dL (8.5-10.1); Creatinine, Blood 0.87 mg/dL (0.40-1.00); Globulin, Blood 4.2 g/dL (2.2-4.0); Potassium, Blood 5.2 mmol/L (3.5-5.5); Total Protein, Blood 6.9 g/dL (6.4-8.2)
[2024-12-07 09:48] LABS: BASOPHILS PERCENT MAN 0 % (0-2); EOSINOPHILS ABSOLUTE MAN 1.03 K/mm3 (0.00-0.68); EOSINOPHILS PERCENT MAN 4 % (0-6); LYMPHOCYTES ABSOLUTE MAN 5.66 K/mm3 (0.84-5.20); LYMPHOCYTES PERCENT MAN 22 % (21-46); MONOCYTES ABSOLUTE MAN 0.51 K/mm3 (0.16-1.47); MONOCYTES PERCENT MAN 2 % (4-13); MYELOCYTE ABSOLUTE MAN 0.25 K/mm3 (0.00-0.00); MYELOCYTE PERCENT MAN 1 % (0-0); NEUTROPHILS ABSOLUTE MAN 18.28 K/mm3 (1.96-9.15); SEG NEUTROPHILS PERCENT MAN 71 % (41-73); TOTAL CELLS COUNTED 100
[2024-12-07 10:43] LABS: Source, Urine Straight Cath
[2024-12-07] MEDS ORDERED: FLU VACC TS2024-25(6MOS UP)/PF 45 MCG/0.5 ML SYRINGE IM PRN (10:45)
[2024-12-07 10:50] LABS: Appearance, Urine Hazy (Clear); Bilirubin, Urine Neg (Neg); Blood, Urine 1+ (Neg); Color, Urine Yellow (P-Yellow); Glucose Qualitative, Urine 4+ (Neg); Ketones, Urine Neg (Neg); Leukocyte Esterase, Urine 2+ (Neg); Nitrite, Urine Pos (Neg); Protein, Urine 2+ (Neg); Urobilinogen, Urine NORM (Normal)
[2024-12-07 11:04] LABS: Bacteria Many /hpf; Squamous Epithelial Cells Few /hpf (Few); White Blood Cells, Urine 50-100 /hpf (0-5)
[2024-12-07 11:05] LABS: Yeast/Fungi Urine Few /hpf
[2024-12-07] MEDS ORDERED: Polyethylene Glycol 3350 17 gm PO PRN (11:10)
[2024-12-07] MEDS ORDERED: Bisacodyl 10 MG Supp PR PRN (11:25)
[2024-12-07] MEDS ORDERED: Insulin Human Lispro 100 Units/ML 3ML Syringe SC SCH (11:30)
[2024-12-07] MEDS ORDERED: CefTRIAXone Sodium 1,000 MG in NS 100 ML IV SCH (12:00)
[2024-12-07 12:11] LABS: Percent Saturation 23.8 % (15.0-50.0)
[2024-12-07] MEDS ORDERED: CefTRIAXone Sodium 2,000 MG in NS 100 ML IV SCH (13:00)
[2024-12-07 14:31] LABS: Hemoglobin 5.8 g/dL (11.5-16.0)
[2024-12-07 14:33] LABS: Hematocrit 19.1 % (33.0-51.0)
--- NOTE | 2024-12-07 14:38 | NUR ---
ASSUMED CARE PT ARRIVED TO UNIT FROM ER. PT SMILING AND RESPONDING BY BLINKING EYES ONCE FOR YES AND TWICE FOR NO. BP STABLE AT THIS TIME. HR SINUS TACH 120'S. O2 SATS >90% ON 2L NC. LS CLEAR. DUMONT PATENT AND DRAINING CLEAR YELLOW URINE. ATTENDS FULL OF BLOOD CLOTS. DR. ALFREDO NOTIFIED OF AMOUT OF CLOTS. ATTENDS ALSO SATURATED IN BRIGHT RED BLOOD. PT CLEANED AND NEW ATTENDS APPLIED. VERBAL ORDER FROM DR. ALFREDO FOR 2U PRBC. AWAITING BLOOD SLIP. AKILA CASTANEDA AT BEDSIDE UPDATED ON PLAN OF CARE.
[2024-12-07] MEDS ORDERED: NS 250 ML IV PRN (15:30)
[2024-12-07] MEDS ORDERED: NS 1,000 ML IV ONE (15:55)
--- NOTE | 2024-12-07 16:00 | NUR ---
UPDATE VITAL SIGNS TAKEN PRIOR TO ADMINISTERING BLOOD TRANSFUSION AND BP SOFT WITH MAP <60. PT PLACED IN [place]. PT STILL RESPONSIVE AND COMMUNICATED YES OR NO WITH BLINKING EYES. BLOOD TRANSFUSION STARTED AND DR. ALFREDO AT BEDSIDE. BP CONTINUES TO BE SOFT AND PT LESS RESPONSIVE. BOLUS OF NS STARTED AND PLAN TO TRANSFER TO ICU. PT TAKEN TO ICU 7 AND BEDSIDE SHIFT REPORT GIVEN TO SREE BLUM
[2024-12-07] MEDS ORDERED: Human Prothrombin Complx(Pcc) 2,000 UNIT in Water For Injection,Sterile 80 ML IV ONE (16:30)
[2024-12-07] MEDS ORDERED: Lactated Ringer's 1,000 ML IV ONE (16:35)
[2024-12-07] MEDS ORDERED: Sodium Phosphate 30 MM in Dextrose 5% 500 ML IV STA (16:38)
[2024-12-07] MEDS ORDERED: ACET325 PO (17:17)
[2024-12-07] MEDS ORDERED: CRANBERRY450 M1 PO (17:18)
[2024-12-07] MEDS ORDERED: Insulin Regular 100 UNIT/ML 10ML Vial SC SCH (18:00)
--- NOTE | 2024-12-07 18:24 | NUR ---
TRANSFER/DAY SHIFT SUMMARY PT BROUGHT OVER TO ICU FROM PCU. PT ARRIVED APPEARING PALE AND MINIMALLY RESPONSIVE. PT STARTED ON LOW DOSE LEVOPHED AND HAD BLOOD PRODUCTS INFUSING. DR. GONZALES PLACING CENTRAL LINE IN RIJ. 2ND UNIT OF PRBC'S INFUSED AND PT BECOMIG MUCH MORE ALERT VERY CLOSE TO HER BASELINE PER FAMILY AT BEDSIDE. PT ON BEDPAN UPON ARRIVAL HAVING LARGE BM AND BEDPAN FULL OF LIQUID MAHOGANY RED VAGINAL BLOOD. DR. STRONG SEEING PT AT BEDSIDE AND WANTING REPEAT H&H AND IONIZED CALCIUM LABS FOLLOWING 2ND UNIT OF PRBC'S BEING INFUSED WHICH WILL BE DRAWN AT 1900. PT'S MONITOR INITIALLY SHOWING ST 120'S IS NOW ST 100'S-110. BP IMPROVING W SBP'S IN THE 90'S ON 5 MCG/MIN LEVOPHED. PT GIVEN 1L BOLUS NS AND 1L LR W ADDITIONAL 1L LR INFUSING AT 150ML/HR. PT AFEBRILE. PT MAINTAINING SPO2 >94% ON RM AIR. LUNGS ARE CLEAR TO AUSCALTATION. PT'S FOLWY PATENT AND DRAINED 550ML YELLOW URINE. PT'S FAMILY AT BEDSIDE SINCE ARRIVAL. WILL REPORT TO ONCOMING RN.
[2024-12-07 19:10] LABS: Hematocrit 24.7 % (33.0-51.0); Hemoglobin 8.1 g/dL (11.5-16.0); Mean Corpuscular HGB 29.3 pg (26.0-34.0); Mean Corpuscular HGB Conc 32.8 g/dL (31.5-36.5); Mean Corpuscular Volume 90 fL (80-100); Mean Platelet Volume 10.2 fL (9.1-12.4); NRBC ABSOLUTE 0.23 K/mm3 (0.00-0.02); NRBC Auto 0.9 /100 WBC (0.0-0.2); Platelet Count 276 K/mm3 (150-400); RDW Coefficient Variation 15.9 % (11.7-14.2); Red Blood Cell Count 2.76 M/mm3 (3.80-5.20); White Blood Cell Count 26.68 K/mm3 (4.00-11.30)
[2024-12-07 19:33] LABS: BASOPHILS ABSOLUTE MAN 0.26 K/mm3 (0.00-0.23); BASOPHILS PERCENT MAN 1 % (0-2); EOSINOPHILS PERCENT MAN 0 % (0-6); LYMPHOCYTES ABSOLUTE MAN 3.46 K/mm3 (0.84-5.20); LYMPHOCYTES PERCENT MAN 13 % (21-46); MONOCYTES ABSOLUTE MAN 0.53 K/mm3 (0.16-1.47); MONOCYTES PERCENT MAN 2 % (4-13); NEUTROPHILS ABSOLUTE MAN 22.41 K/mm3 (1.96-9.15); SEG NEUTROPHILS PERCENT MAN 84 % (41-73); TOTAL CELLS COUNTED 100
--- NOTE | 2024-12-07 20:39 | NUR ---
ASSUMED CARE AT 1900 PT LAYING IN BED WITH HER GRANDMOTHER AT BEDSIDE; SHE IS APPROPRIATE WITH STAFF AND THE PT ALONG WITH BEING HELPFUL IN COMMUNICATING WITH ARABELLA. THE PT IS NONVERBAL AT BASELINE BUT COMMUNICATES WITH FACIAL GESTURES AND POINTING; ANSWERING Y/N QUESTIONS APPROPRIATLY; RT SIDED DEFICIT AT BASELINE. AFEBRILE. SPO2 >96% ON RA. SINUS TACH NOTED WITH RATE 110-120'S. SBP 80-100 WITH MAP >65; LEVOPHED INFUSING AT 5MCG/MIN. NPO AT [address] CAMACHO. DUMONT IN PLACE AND DRAINING TO GRAVITY. PT CONT TO HAVE MODERATE AMOUNT OF VAGINAL BLEEDING; FROM REPORT, CLOTS APPEAR TO BE SMALLER THAN BEFORE. LR INFUSING AT 150ML/HR. CENTRAL LINE TO RIJ PATENT WITH DRESSING C/D/I. CALL MADE TO DR CAMACHO REGARDING 1855 H&H, PLAN TO REDRAW CBC AT 2200 AND OF RIGHT NOW, PLAN FOR SURG TOMORROW (12/08/24). SEE SHIFT ASSESSMENT FOR FULL ASSESSMENT.
[2024-12-07] MEDS ORDERED: Insulin Glargine-Yfgn 100 Unit/mL 3 ML SYR SC SCH (21:00)
[2024-12-07 22:14] LABS: Hematocrit 24.9 % (33.0-51.0); Hemoglobin 8.2 g/dL (11.5-16.0); Mean Corpuscular HGB 29.2 pg (26.0-34.0); Mean Corpuscular HGB Conc 32.9 g/dL (31.5-36.5); Mean Corpuscular Volume 89 fL (80-100); Mean Platelet Volume 10.3 fL (9.1-12.4); NRBC Auto 1.2 /100 WBC (0.0-0.2); Platelet Count 287 K/mm3 (150-400); RDW Coefficient Variation 16.2 % (11.7-14.2); RDW Standard Deviation 48.6 fL (35.1-46.3); Red Blood Cell Count 2.81 M/mm3 (3.80-5.20); White Blood Cell Count 25.75 K/mm3 (4.00-11.30)
[2024-12-07 22:44] LABS: BAND PERCENT MAN 3 % (0-8); BASOPHILS PERCENT MAN 0 % (0-2); EOSINOPHILS ABSOLUTE MAN 0.51 K/mm3 (0.00-0.68); EOSINOPHILS PERCENT MAN 2 % (0-6); LYMPHOCYTES ABSOLUTE MAN 4.63 K/mm3 (0.84-5.20); LYMPHOCYTES PERCENT MAN 18 % (21-46); MONOCYTES ABSOLUTE MAN 0.77 K/mm3 (0.16-1.47); MONOCYTES PERCENT MAN 3 % (4-13); NEUTROPHILS ABSOLUTE MAN 19.82 K/mm3 (1.96-9.15); SEG NEUTROPHILS PERCENT MAN 74 % (41-73); TOTAL CELLS COUNTED 100
[2024-12-08] VITALS (79 sets, daily range): BP systolic 70–142; BP diastolic 42–103
[2024-12-08 03:46] LABS: Hematocrit 23.7 % (33.0-51.0); Hemoglobin 7.7 g/dL (11.5-16.0); Mean Corpuscular HGB 28.8 pg (26.0-34.0); Mean Corpuscular HGB Conc 32.5 g/dL (31.5-36.5); Mean Corpuscular Volume 89 fL (80-100); NRBC ABSOLUTE 0.26 K/mm3 (0.00-0.02); NRBC Auto 1.4 /100 WBC (0.0-0.2); Platelet Count 222 K/mm3 (150-400); RDW Coefficient Variation 16.9 % (11.7-14.2); RDW Standard Deviation 49.1 fL (35.1-46.3); Red Blood Cell Count 2.67 M/mm3 (3.80-5.20); White Blood Cell Count 18.44 K/mm3 (4.00-11.30)
[2024-12-08 04:42] LABS: Albumin, Blood 2.4 g/dL (3.4-5.0); Albumin/Globulin Ratio 0.8 (0.8-1.8); Bilirubin, Total 0.2 mg/dL (0.1-1.0); Bun/Creatinine Ratio 22.6 (12.0-20.0); Calcium, Blood 7.9 mg/dL (8.5-10.1); Creatinine, Blood 0.75 mg/dL (0.40-1.00); Globulin, Blood 3.1 g/dL (2.2-4.0); Total Protein, Blood 5.5 g/dL (6.4-8.2)
--- NOTE | 2024-12-08 06:28 | NUR ---
END OF SHIFT SUMMARY NO ACUTE EVENTS OVERNIGHT. PT ONLY SLEPT FOR A FEW HOURS BUT WAS AWAKE FOR THE REST. SHE CONT TO COMMUNICATE WITH FACIAL GESTURES AND POINTING, NO CHANGES. SPO2 >94% ON RA. AFEBRILE. HR 120'S. LEVOPHED PLACED ON SB AT 0200, SBP 80-100 AND MAP CONT TO BE >65. SHE HAS BEEN NPO SINCE 0000. DUMONT IN PLACE WITH DECREASED OUTPUT. VAGINAL BLEEDING DECREASED T/O THE SHIFT; NO NOTICABLE BLOOD CLOTS NOW. CENTRAL LINE TO RIJ PATENT WITH DRESSING C/D/I, SALINE LOCKED. GRANDMOTHER STAYED AT BEDSIDE ALL NIGHT AND WAS HELPFUL WITH COMMUNICATING WITH PT. WILL REPORT TO AM RN WHEN AVAILABLE.
[2024-12-08] MEDS ORDERED: Insulin Glargine-Yfgn 100 Unit/mL 3 ML SYR SC SCH ×2 (07:30→09:00)
--- NOTE | 2024-12-08 07:59 | NUR ---
Washita of care: Resting comfortably in bed. Heart rate is normal ST in 120-130s. BP 90/68 with a MAP of 76. Oxygen saturation 94% on room air. Respiratory rate in mid 20s. NPO pending possible trip to OR today. Catherine cath patent & secure. R IJ CVC in place. Grandmother at bedside & updated on plan of care. Will continue to monitor.
[2024-12-08] MEDS ORDERED: Prenatal Vit/FE Fumarate/FA 1 Tab PO SCH (09:00)
[2024-12-08] MEDS ORDERED: Cyanocobalamin 500 MCG Tab PO SCH (09:00)
[2024-12-08] MEDS ORDERED: Empagliflozin 10 MG TAB PO SCH (09:00)
[2024-12-08] MEDS ORDERED: Insulin Glargine-Yfgn 100 Unit/mL 3 ML SYR SC ONE (11:25)
[2024-12-08 11:45] LABS: Hematocrit 22.6 % (33.0-51.0); Hemoglobin 7.3 g/dL (11.5-16.0)
[2024-12-08] MEDS ORDERED: NS 1,000 ML IV SCH (12:00)
[2024-12-08] MEDS ORDERED: CefTRIAXone Sodium 1,000 MG in NS 100 ML IV SCH (13:00)
[2024-12-08] MEDS ORDERED: CALCIUM GLUC IN NACL, ISO-OSM 100 ML IV ONE (14:05)
[2024-12-08] MEDS ORDERED: Lactated Ringer's 1,000 ML IV SCH (14:35)
[2024-12-08] MEDS ORDERED: propofoL 20 ML IV ONE (15:26)
--- NOTE | 2024-12-08 15:26 | NUR ---
Patient to OR.
[2024-12-08] MEDS ORDERED: Etomidate 2MG / ML 10ML Vial ONE (15:29)
[2024-12-08] MEDS ORDERED: Midazolam HCl 1MG / ML 2ML Vial ONE (15:32)
[2024-12-08] MEDS ORDERED: FentaNYL Citrate 50 MCG/ML 2 ML Injection ONE (16:03)
[2024-12-08] MEDS ORDERED: Ondansetron HCl 2 MG / ML 2ML Vial ONE (16:19)
[2024-12-08] MEDS ORDERED: Rocuronium Bromide 10 MG/ML 5ML Injection IV ONE (16:19)
[2024-12-08] MEDS ORDERED: Dexamethasone Sod Phos 10 MG/ML 1ML VIAL ONE (16:19)
[2024-12-08] MEDS ORDERED: Phenylephrine HCl 100 MCG/ML-NS 10MLSYR (1MG/10ML) ONE (16:19)
[2024-12-08] MEDS ORDERED: Sugammadex Sodium 200 MG/2ML SDV (100 MG/ML) ONE (16:21)
[2024-12-08 16:57] LABS: FRUCTOSAMINE 209 umol/L (205-285)
--- NOTE | 2024-12-08 17:07 | NUR ---
12/08/24 1707 Joe,Lexi BLOOD STARTED IN THE OR BY ANESTHESIA, SEE ANESTHESIA CHART.
--- NOTE | 2024-12-08 18:18 | NUR ---
Shift summary: Alert & hungry. No complaints of pain. Blinking yes/no to communicate. Returned from OR at roughly 1700. In low [address] 100s. Blood pressures stable. Second unit of PRBC infusing. On 2L NC due to desaturations to 87% on room air. Catherine catheter secure & in place draining cloudy yellow urine with sediment. No signs of vaginal bleeding since return from OR. R IJ CVC in place. H&H pending after blood transfusion.
[2024-12-08] MEDS ORDERED: Acetaminophen 325 MG TABLET PO PRN (20:10)
[2024-12-08] MEDS ORDERED: Insulin Regular 100 UNIT/ML 10ML Vial SC SCH (21:00)
[2024-12-08] MEDS ORDERED: Dose Adjust by Pharmacy XX STA (21:15)
[2024-12-08 21:16] LABS: BASOPHILS ABSOLUTE AUTO 0.04 K/mm3 (0.00-0.23); BASOPHILS PERCENT AUTO 0 % (0-2); EOSINOPHILS ABSOLUTE AUTO 0.11 K/mm3 (0.00-0.68); EOSINOPHILS PERCENT AUTO 1 % (0-6); Hematocrit 27.5 % (33.0-51.0); Hemoglobin 9.2 g/dL (11.5-16.0); IMMATURE GRAN ABSOLUTE AUTO 0.26 K/mm3 (0.00-0.10); IMMATURE GRAN PERCENT AUTO 2 % (0-1); LYMPHOCYTES ABSOLUTE AUTO 2.05 K/mm3 (0.84-5.20); LYMPHOCYTES PERCENT AUTO 13 % (21-46); MONOCYTES ABSOLUTE AUTO 0.23 K/mm3 (0.16-1.47); MONOCYTES PERCENT AUTO 2 % (4-13); Mean Corpuscular HGB Conc 33.5 g/dL (31.5-36.5); Mean Corpuscular Volume 90 fL (80-100); Mean Platelet Volume 10.3 fL (9.1-12.4); NEUTROPHILS ABSOLUTE AUTO 12.65 K/mm3 (1.96-9.15); NEUTROPHILS PERCENT AUTO 82 % (41-73); NRBC ABSOLUTE 0.16 K/mm3 (0.00-0.02); Platelet Count 188 K/mm3 (150-400); RDW Coefficient Variation 15.9 % (11.7-14.2); RDW Standard Deviation 47.6 fL (35.1-46.3); Red Blood Cell Count 3.07 M/mm3 (3.80-5.20); White Blood Cell Count 15.34 K/mm3 (4.00-11.30)
[2024-12-08] MEDS ORDERED: Heparin Sodium,Porcine/0.5 NS 500 ML IV SCH (21:20)
[2024-12-08 21:32] LABS: International Normalized Ratio 1.04; Prothrombin Time Results 11.1 Sec (9.7-11.5)
--- NOTE | 2024-12-08 21:48 | NUR ---
TRANSFER OF CARE REPORT GIVEN TO MARQUITA BLUM AT 2139. PT IS AWAKE AND COMMUNICATING AT BASELINE WITH FACIAL GESTURES AND POINTING. SPO2 >97% ON 2L NC. AFEBRILE. SINUS TACH NOTED WITH HR 100-110. SBP 100'S WITH MAP >65; NO LEVOPHED INFUSING AT THIS TIME. TOLERATING PO INTAKE WELL. DUMONT IN PLACE WITH CLOUDY OUTPUT. MINIMAL AMOUNT OF VAGINAL BLEEDING AT THIS TIME. PT C/O INTESTINAL/UTERINE CRAMPING, PLACED ON BED DIMAS SEVERAL TIMES WITH NO OUTPUT. ORDER FOR PRN TYLENOL RECIEVED; PT TAKES PILLS SUCCESSFULLY WHOLE AND IN PUDDING. SECOND UNIT OF PRBC'S FINISHED AT 1944; FOLLOW UP LABS DRAWN AT 2044. NS INFUSING AT 150ML/HR. CENTRAL LINE TO RIJ PATENT WITH DRESSING C/D/I. PT GRANDMOTHER AND GRANDFATHER AT BEDSIDE AND APPROPRIATE WITH PT AND STAFF. GRANDMOTHER STAYING ALL NIGHT AND IS HELPFUL COMMUNICATING WITH PT.
[2024-12-09] VITALS (20 sets, daily range): BP systolic 72–127; BP diastolic 45–96
[2024-12-09 00:38] LABS: Hematocrit 26.8 % (33.0-51.0); Hemoglobin 8.7 g/dL (11.5-16.0)
[2024-12-09 04:20] LABS: Hematocrit 26.3 % (33.0-51.0); Hemoglobin 8.6 g/dL (11.5-16.0); Mean Corpuscular HGB 29.2 pg (26.0-34.0); Mean Corpuscular HGB Conc 32.7 g/dL (31.5-36.5); Mean Corpuscular Volume 89 fL (80-100); Mean Platelet Volume 10.1 fL (9.1-12.4); NRBC ABSOLUTE 0.18 K/mm3 (0.00-0.02); NRBC Auto 1.2 /100 WBC (0.0-0.2); Platelet Count 184 K/mm3 (150-400); RDW Coefficient Variation 16.6 % (11.7-14.2); RDW Standard Deviation 49.7 fL (35.1-46.3); Red Blood Cell Count 2.95 M/mm3 (3.80-5.20); White Blood Cell Count 14.65 K/mm3 (4.00-11.30)
[2024-12-09 04:41] LABS: Albumin, Blood 2.4 g/dL (3.4-5.0); Albumin/Globulin Ratio 0.8 (0.8-1.8); Bilirubin, Total 0.3 mg/dL (0.1-1.0); Bun/Creatinine Ratio 19.7 (12.0-20.0); Creatinine, Blood 0.71 mg/dL (0.40-1.00); Globulin, Blood 3.1 g/dL (2.2-4.0); Potassium, Blood 4.1 mmol/L (3.5-5.5); Total Protein, Blood 5.5 g/dL (6.4-8.2)
[2024-12-09] MEDS ORDERED: Heparin Sodium 5000 Units/ML 1ML MDV IV ONE ×2 (05:30→12:00)
[2024-12-09] MEDS ORDERED: Dose Adjust by Pharmacy XX STA ×3 (05:31→18:38)
--- NOTE | 2024-12-09 06:24 | NUR ---
SHIFT SUMMARY: PT IS ON ASSEMBLER BICYCLE SINUS RHYTHM, NORMOTENSIVE, LEVOPHED REMAINS OFF. NO SIGN OF DIFFICULTY BREATHING, LUNGS ARE CLEAR ON 1LPM NC. DMUONT CATHTER IN PLACE WITH ADEQUATE OUTPUT. NO BLEEDING OVERNIGHT. PT HAVING SOME CRAMPING PAIN, IMPROVED WITH TYLENOL. AKILA REMAINS AT BEDSIDE OVERNIGHT AND HELPS WITH COMMUNICATION.
[2024-12-09] MEDS ORDERED: Insulin Human Lispro 100 Units/ML 3ML Syringe SC SCH (12:30)
[2024-12-09] MEDS ORDERED: HYDROcodone 5-APAP 325 TAB PO PRN (13:30)
--- NOTE | 2024-12-09 18:28 | NUR ---
Summary. Pt to remain in ICU overnight on heparin infusion, see emar for rate. Currently only IV access is R/IJ central line. Plan is to remove line in am and switch to oral anticoagulants per physician. No acute events this shift. Pt tachycardic in low 100s, otherwise VS stable. No vaginal bleeding noted throughout shift. See chart for further details.
[2024-12-09] MEDS ORDERED: Lactobacil 2-S.Thermo-Bifido 1 1 Cap PO SCH (21:00)
[2024-12-10] VITALS (33 sets, daily range): BP systolic 92–128; BP diastolic 58–89
[2024-12-10 02:17] LABS: BASOPHILS ABSOLUTE AUTO 0.05 K/mm3 (0.00-0.23); BASOPHILS PERCENT AUTO 0 % (0-2); EOSINOPHILS ABSOLUTE AUTO 0.26 K/mm3 (0.00-0.68); EOSINOPHILS PERCENT AUTO 2 % (0-6); Hematocrit 25.6 % (33.0-51.0); Hemoglobin 8.1 g/dL (11.5-16.0); IMMATURE GRAN ABSOLUTE AUTO 0.26 K/mm3 (0.00-0.10); IMMATURE GRAN PERCENT AUTO 2 % (0-1); LYMPHOCYTES ABSOLUTE AUTO 4.62 K/mm3 (0.84-5.20); LYMPHOCYTES PERCENT AUTO 33 % (21-46); MONOCYTES ABSOLUTE AUTO 0.72 K/mm3 (0.16-1.47); MONOCYTES PERCENT AUTO 5 % (4-13); Mean Corpuscular HGB Conc 31.6 g/dL (31.5-36.5); Mean Platelet Volume 10.3 fL (9.1-12.4); NEUTROPHILS PERCENT AUTO 58 % (41-73); NRBC Auto 1.4 /100 WBC (0.0-0.2); Platelet Count 208 K/mm3 (150-400); RDW Coefficient Variation 18.2 % (11.7-14.2); RDW Standard Deviation 57.7 fL (35.1-46.3); White Blood Cell Count 14.21 K/mm3 (4.00-11.30)
[2024-12-10 02:29] LABS: Mean Corpuscular Volume 95 fL (80-100)
[2024-12-10 02:38] LABS: Bun/Creatinine Ratio 23.9 (12.0-20.0); Calcium, Blood 7.6 mg/dL (8.5-10.1); Creatinine, Blood 0.8 mg/dL (0.40-1.00)
[2024-12-10] MEDS ORDERED: Dose Adjust by Pharmacy XX STA (02:39)
[2024-12-10] MEDS ORDERED: Heparin Sodium 5000 Units/ML 1ML MDV IV ONE (02:40)
--- NOTE | 2024-12-10 05:04 | NUR ---
SHIFT SUMMARY PT NONVERBAL AT BL, ALERT AND ABLE TO ANSWER YES/NO QUESTIONS WITH HEAD NOD/WINK. ON 1L NC, SATS >94%. CARDIAC MONITORING IN PLACE, HR 100'S, BP STABLE. MAPS >65. DUMONT IN PLACE AND DRAINING TO GRAVITY, GOOD UOP NOTED. NO BM THIS SHIFT, PT REPORTS CRAMPING/GAS PAIN. MEDICATED PER EMAR WITH RELIEF. TOLERATING PO INTAKE W/O N/V. PLANS TO PULL CL ON DAY SHIFT TODAY SO CL DRESSING WAS NOT CHANGED THIS SHIFT. NO BLEEDING NOTED FROM VAGINAL AREA. GRANDMOTHER AT BEDSIDE. CALL LIGHT IN REACH.
[2024-12-10] MEDS ORDERED: Apixaban 5 MG Tab PO SCH (09:00)
[2024-12-10] MEDS ORDERED: Meropenem 1,000 MG in NS 100 ML IV SCH (10:44)
[2024-12-10] MEDS ORDERED: Dextrose 5% 1,000 ML IV SCH (11:00)
--- NOTE | 2024-12-10 11:05 | NUR ---
Spiritual Care Visit. Pt. is awake in bed. Pts. grandmother (I believe) is at bedside. While the Pt. canot verbalize much, the grandmother can decifer her non-verbals. Facilitated a review of her care, and Father Jhonny was mentioned as one who the Pt. had much gratitude for. Granddmother displayed evidence of impatience with some of the Pts. care, but verbalized gratitude for her bedside nurse and doctor. with the Pts. permission I praed for her. The Pt. was able to verbalize "amen." Grandmother verbalized gratitude for the spiritual care visit.
[2024-12-10] MEDS ORDERED: Insulin Human Lispro 100 Units/ML 3ML Syringe SC SCH (11:30)
--- NOTE | 2024-12-10 21:22 | NUR ---
ASSUMED CARE AT 1900 PATIENT IS ALERT AND ORIENTED TO SELF AND PLACE, WINKS FOR YES AND NODS HEAD FOR NO. FAMILY AT BEDSIDE AND HELPING WITH COMMUNICATION. SP02 96% ON 2L VIA NC. HR SR 90s, BP STABLE. DUMONT PATENT AND DRAINING TO GRAVITY. FAMILY ALSO ASSISTING WITH TURNS AND BEDPAN. CENTRAL LINE REMOVED. CALL LIGHT IN REACH
[2024-12-11 00:45] VITALS: BP 102/67
--- NOTE | 2024-12-11 00:46 | NUR ---
REPORT GIVEN TO TEST KITCHEN HOME ECONOMIST, PATIENT TRANSFERED TO ROOM 224. AKILA REMAINS AT BEDSIDE
--- NOTE | 2024-12-11 02:17 | NUR ---
PT TRANSFERED TO SURGICAL FLOOR FROM ICU, ASSUMED CARE AT 0048. REVIEWED SHIFT ASSESSMENT BY ICU NURSE AND AGREE WITH ASSESSMENT. PT HAS DUMONT UPON ARRIVAL TO ROOM. PLAN FOR PT DISCHARGE IN THE MORNING. REMOVED CATH. PT TOLERATED WELL PROVIDED EDUCATION ON RISK OF RETENTION/INCON. PT IS CONTINENT AT BASELINE. SOFT TOUCH CALL LIGHT PROVIDED TO PT. ORIENTED PT TO ROOM AND CALL LIGHT. PT GRANDMA AT BEDSIDE. PT IN CONTACT PRECAUTIONS FOR ESBL IN THE URINE. PT HAS POWER GLIDE TO RIGHT UPPER ARM. LINE TO BE LEFT IN UPON DISCHARGE FOR OUTPATIENT ABOX TX. PT ALERT, ORIENTED TO SELF, FAMILY, AND SITUATION. PT IS NON VERBAL BUT ABLE TO ANSWER YES WITH A "WINK" AND NO WITH GRUNT/SHAKE OF HEAD. PT SKIN INTACT. PT HAS CLEAR DRESSING OVER IJ CENTRAL LINE SIDE ON RIGHT NECK. SCANT AMOUNT OF DISCHARGE OBSERVED TO GAUZE UNDER CLEAR DRESSING.
[2024-12-11 04:59] VITALS: BP 105/66
[2024-12-11 05:36] LABS: Hematocrit 27.5 % (33.0-51.0); Hemoglobin 8.4 g/dL (11.5-16.0); Mean Corpuscular HGB 29.6 pg (26.0-34.0); Mean Corpuscular HGB Conc 30.5 g/dL (31.5-36.5); Mean Corpuscular Volume 97 fL (80-100); Mean Platelet Volume 10.6 fL (9.1-12.4); NRBC ABSOLUTE 0.14 K/mm3 (0.00-0.02); NRBC Auto 1.4 /100 WBC (0.0-0.2); Platelet Count 181 K/mm3 (150-400); RDW Coefficient Variation 18.8 % (11.7-14.2); RDW Standard Deviation 60.9 fL (35.1-46.3); Red Blood Cell Count 2.84 M/mm3 (3.80-5.20); White Blood Cell Count 9.87 K/mm3 (4.00-11.30)
[2024-12-11 05:59] LABS: Albumin, Blood 2.3 g/dL (3.4-5.0); Albumin/Globulin Ratio 0.7 (0.8-1.8); Bilirubin, Total 0.2 mg/dL (0.1-1.0); Bun/Creatinine Ratio 28.9 (12.0-20.0); Creatinine, Blood 0.62 mg/dL (0.40-1.00); Globulin, Blood 3.3 g/dL (2.2-4.0); Potassium, Blood 4.3 mmol/L (3.5-5.5); Total Protein, Blood 5.6 g/dL (6.4-8.2)
[2024-12-11 07:51] VITALS: BP 103/68
--- NOTE | 2024-12-11 12:12 | NUR ---
REPORT CALLED TO ANNAMARIEMICHAEL MILES. PT AKILA TOOK ALL PERSONAL BELONGINGS. PG IV LEFT IN PLACE PER ORDERS. DISCHARGE PACKET INCLUDING HARD RX FOR PAIN MEDICATIONS SENT WITH EMS TRANSPORT.
== END 2024-12-11 12:17 | DRG 744 ==
LOC: ER 08:50 → ICUE 10:41 → ERHOLD 10:41 → PCU 14:25 → ICUE 16:01 → SURS 12-11 00:46
PROVIDERS: Emergency Medicine; Family Medicine; Hospitalist; Obstetrics & Gynecology; Student in an Organized Health Care Education/Training Program; ADMIT Internal Medicine
PROC: 30233N1 Transfusion of Nonautologous Red Blood Cells into Peripheral Vein, Percutaneous Approach (ICD-10-PCS; 2024-12-07)
PROC: 02H633Z Insertion of Infusion Device into Right Atrium, Percutaneous Approach (ICD-10-PCS; 2024-12-07)
PROC: 30283B1 Transfusion of Nonautologous 4-Factor Prothrombin Complex Concentrate into Vein, Percutaneous Approach (ICD-10-PCS; 2024-12-07)
PROC: 0UDB8ZZ Extraction of Endometrium, Via Natural or Artificial Opening Endoscopic (ICD-10-PCS; 2024-12-08)
PROC: 0W3R8ZZ Control Bleeding in Genitourinary Tract, Via Natural or Artificial Opening Endoscopic (ICD-10-PCS; principal; 2024-12-08 15:30)
DX: N93.8 Other specified abnormal uterine and vaginal bleeding (principal); G82.50 Quadriplegia, unspecified; R57.8 Other shock; D62 Acute posthemorrhagic anemia; E72.12 Methylenetetrahydrofolate reductase deficiency; N39.0 Urinary tract infection, site not specified; E87.21 Acute metabolic acidosis; G82.20 Paraplegia, unspecified; X58.XXXS Exposure to other specified factors, sequela; R13.10 Dysphagia, unspecified; E11.649 Type 2 diabetes mellitus with hypoglycemia without coma; D64.9 Anemia, unspecified; N83.202 Unspecified ovarian cyst, left side; Z79.01 Long term (current) use of anticoagulants; Z86.73 Personal history of transient ischemic attack (TIA), and cerebral infarction without residual deficits; S06.9XAS Unspecified intracranial injury with loss of consciousness status unknown, sequela; D50.9 Iron deficiency anemia, unspecified; N92.6 Irregular menstruation, unspecified; Z86.14 Personal history of Methicillin resistant Staphylococcus aureus infection; Z79.4 Long term (current) use of insulin; Z79.84 Long term (current) use of oral hypoglycemic drugs; Z79.899 Other long term (current) drug therapy; Z88.2 Allergy status to sulfonamides
CPT/HCPCS: 36415; 36430; 36556; 51702; 71045; 76856; 80048; 80053; 81001; 81025; 82010; 82330; 82607; 82728; 82746; 82803; 82947; 82985; 83540; 83550; 83605; 83930; 84145; 84484; 84703; 85014; 85018; 85025; 85027; 85045; 85610; 85730; 86850; 86900; 86901; 86923; 87040; 87077; 87086; 87186; 88305; 93005; 93010; 94762; 96374; 99284-25; 99285-25; A9270; C1751; J0612; J0696; J1100; J1644; J1815; J2185; J2250; J2371; J2405; J2543; J2704; J3010; J7030; J7050; J7060; J7070; J7120; J7168; P9016

== ENCOUNTER 2024-12-25 18:59 | Inpatient (IN) | payer OTHER ==
[~2024-12-25] VITALS: Ht 157.5 cm; Wt 104.0 kg
[~2024-12-25 18:59] MED LIST changes: +CRANBERRY450 M1 PO; +PREPARATION H1 EAC4 TOP; +SENNA LAXATIVE8.6 MG PO; +STEGLATRO5 MG PO
[2024-12-25 19:51] LABS: BASOPHILS ABSOLUTE AUTO 0.08 K/mm3 (0.00-0.23); BASOPHILS PERCENT AUTO 1 % (0-2); EOSINOPHILS ABSOLUTE AUTO 0.36 K/mm3 (0.00-0.68); EOSINOPHILS PERCENT AUTO 3 % (0-6); Hematocrit 30.8 % (33.0-51.0); Hemoglobin 8.9 g/dL (11.5-16.0); IMMATURE GRAN ABSOLUTE AUTO 0.03 K/mm3 (0.00-0.10); IMMATURE GRAN PERCENT AUTO 0 % (0-1); LYMPHOCYTES ABSOLUTE AUTO 3.85 K/mm3 (0.84-5.20); LYMPHOCYTES PERCENT AUTO 34 % (21-46); MONOCYTES ABSOLUTE AUTO 0.53 K/mm3 (0.16-1.47); MONOCYTES PERCENT AUTO 5 % (4-13); Mean Corpuscular HGB 25.4 pg (26.0-34.0); Mean Corpuscular HGB Conc 28.9 g/dL (31.5-36.5); Mean Corpuscular Volume 88 fL (80-100); Mean Platelet Volume 9.7 fL (9.1-12.4); NEUTROPHILS ABSOLUTE AUTO 6.34 K/mm3 (1.96-9.15); NEUTROPHILS PERCENT AUTO 57 % (41-73); NRBC ABSOLUTE 0.02 K/mm3 (0.00-0.02); NRBC Auto 0.2 /100 WBC (0.0-0.2); Platelet Count 234 K/mm3 (150-400); RDW Coefficient Variation 18.6 % (11.7-14.2); RDW Standard Deviation 58.4 fL (35.1-46.3); Red Blood Cell Count 3.51 M/mm3 (3.80-5.20); White Blood Cell Count 11.19 K/mm3 (4.00-11.30)
[2024-12-25 20:06] LABS: International Normalized Ratio 0.96; Prothrombin Time Results 10.3 Sec (9.7-11.5)
[2024-12-25] MEDS ORDERED: STEGLATRO5 MG (20:11)
[2024-12-25 20:12] LABS: Magnesium, Blood 2.2 mg/dL (1.6-2.4)
[2024-12-25] MEDS ORDERED: ELIQUIS5 M2 PO (20:12)
[2024-12-25] MEDS ORDERED: XARELTO20 MG (20:12)
[2024-12-25] MEDS ORDERED: Florastor250 MG (20:13)
[2024-12-25 20:14] LABS: Alanine Aminotransfer (ALT/SGP 30 U/L (12-78); Albumin, Blood 2.6 g/dL (3.4-5.0); Albumin/Globulin Ratio 0.6 (0.8-1.8); Alk Phos 97 U/L (50-136); Anion Gap 10 mmol/L (3-11); Aspartate Aminotrans (AST/SGOT 16 U/L (12-37); Bilirubin, Direct <0.1 mg/dL (0.0-0.3); Bilirubin, Indirect Unable to Calculate mg/dL (0.1-0.7); Bilirubin, Total 0.4 mg/dL (0.1-1.0); Blood Urea Nitrogen 14 mg/dL (8-24); Bun/Creatinine Ratio 20.4 (12.0-20.0); CO2, Blood 26 mmol/L (21-32); Calcium, Blood 8.9 mg/dL (8.5-10.1); Chloride, Blood 110 mmol/L (98-108); Creatinine, Blood 0.69 mg/dL (0.40-1.00); Globulin, Blood 4.4 g/dL (2.2-4.0); Glomerular Filtration Rate 114 (60-); Glucose, Blood 162 mg/dL (70-99); Potassium, Blood 4.3 mmol/L (3.5-5.5); Sodium, Blood 142 mmol/L (136-145)
[2024-12-25 20:15] LABS: Source, Urine Straight Cath
[2024-12-25 20:23] LABS: Bilirubin, Urine Neg (Neg); Blood, Urine 2+ (Neg); Glucose Qualitative, Urine 4+ (Neg); Ketones, Urine Neg (Neg); Leukocyte Esterase, Urine 3+ (Neg); Nitrite, Urine Neg (Neg); Protein, Urine 3+ (Neg); Specific Gravity, Urine 1.015 (1.003-1.022); Urobilinogen, Urine NORM (Normal)
[2024-12-25 20:38] LABS: Appearance, Urine Turbid (Clear); Color, Urine Pale Yellow (P-Yellow)
[2024-12-25 20:40] LABS: Bacteria Many /hpf; Squamous Epithelial Cells Few /hpf (Few); White Blood Cells, Urine TNTC /hpf (0-5)
[2024-12-25 20:41] LABS: Red Blood Cells, Urine 0-2 /hpf (0-2)
[2024-12-25 21:03] LABS: Influenza A, PCR NEGATIVE (NEGATIVE); Influenza B, PCR NEGATIVE (NEGATIVE); Resp Syncytial Virus, PCR NEGATIVE (NEGATIVE); SARS-Cov-2 (COVID-19) PCR, MMC NEGATIVE (NEGATIVE)
[2024-12-25] MEDS ORDERED: CefTRIAXone Sodium 1,000 MG in NS 100 ML IV ONE (21:45)
[2024-12-25] MEDS ORDERED: FLU VACC TS2024-25(6MOS UP)/PF 45 MCG/0.5 ML SYRINGE IM ONE (22:20)
[2024-12-25] MEDS ORDERED: Ondansetron HCl 2 MG / ML 2ML Vial IV PRN (22:20)
[2024-12-25] MEDS ORDERED: Acetaminophen 325 MG TABLET PO PRN (22:20)
[2024-12-25] MEDS ORDERED: Meropenem 1,000 MG in NS 100 ML IV SCH (23:00)
[2024-12-25] MEDS ORDERED: Apixaban 5 MG Tab PO SCH (23:00)
[2024-12-25] MEDS ORDERED: Lactated Ringer's 1,000 ML IV SCH (23:00)
[2024-12-25 23:35] VITALS: BP 102/66
--- NOTE | 2024-12-26 01:00 | NUR ---
PATIENT IS A NEW ADMIT FROM THE ED. THREE PERSON TRANSFER FROM [facility] TO BED. ALERT AND ORIENTED, NON-VERBAL, WITH SPECIAL NEEDS FROM [facility]. GRANDMOTHER PRESENT ON ADMIT WILL STAY OVERNIGHT AND ASSIST. IV ABX FINISHED INFUSING FROM THE ED. ON 2L O2 NC AND RA BASELINE. PATIENT WILL WINK FOR YES ANSWERS AND HEAD SIDE TO SIDE FOR NO ANSWERS. DENIES CHEST PAIN, SOB, AND N/V. FAMILY ORIENTED TO ROOM AND CALL LIGHT SYSTEM. WCTM.
[2024-12-26 03:58] VITALS: BP 122/78
--- NOTE | 2024-12-26 05:10 | NUR ---
SHIFT SUMMARY PATIENT HAD NO ACUTE CHANGES. AXOX 3, SPECIAL NEEDS,BEDREST, & NON-VERBAL. PIV INTACT. LR INFUSING @ 150 mL/HR X ONE. DENIES CHEST PAIN, SOB, AND N/V. VSS/AFEBRILE. ON 2L O2 NC AND RA BASELINE. PUREWICK IN PLACE. GRANDMOTHER STAYED OVERNIGHT AND IS PRIMARY PROFESSOR OF EARLY CHILDHOOD EDUCATION. CALL LIGHT IN REACH. BED IN LOWEST POSITION. WILL CONTINUE TO MONITOR UNTIL DAY SHIFT NURSE ASSUMES CARE.
[2024-12-26 05:43] LABS: BASOPHILS ABSOLUTE AUTO 0.04 K/mm3 (0.00-0.23); BASOPHILS PERCENT AUTO 1 % (0-2); EOSINOPHILS ABSOLUTE AUTO 0.29 K/mm3 (0.00-0.68); EOSINOPHILS PERCENT AUTO 4 % (0-6); Hematocrit 28.2 % (33.0-51.0); Hemoglobin 8.3 g/dL (11.5-16.0); IMMATURE GRAN ABSOLUTE AUTO 0.05 K/mm3 (0.00-0.10); IMMATURE GRAN PERCENT AUTO 1 % (0-1); LYMPHOCYTES ABSOLUTE AUTO 2.19 K/mm3 (0.84-5.20); LYMPHOCYTES PERCENT AUTO 27 % (21-46); MONOCYTES ABSOLUTE AUTO 0.43 K/mm3 (0.16-1.47); MONOCYTES PERCENT AUTO 5 % (4-13); Mean Corpuscular HGB 25.4 pg (26.0-34.0); Mean Corpuscular HGB Conc 29.4 g/dL (31.5-36.5); Mean Corpuscular Volume 86 fL (80-100); Mean Platelet Volume 9.6 fL (9.1-12.4); NEUTROPHILS ABSOLUTE AUTO 5.08 K/mm3 (1.96-9.15); NEUTROPHILS PERCENT AUTO 63 % (41-73); Platelet Count 192 K/mm3 (150-400); RDW Coefficient Variation 18.6 % (11.7-14.2); RDW Standard Deviation 57.1 fL (35.1-46.3); Red Blood Cell Count 3.27 M/mm3 (3.80-5.20); White Blood Cell Count 8.08 K/mm3 (4.00-11.30)
[2024-12-26 06:07] LABS: Albumin, Blood 2.3 g/dL (3.4-5.0); Albumin/Globulin Ratio 0.6 (0.8-1.8); Bilirubin, Total 0.3 mg/dL (0.1-1.0); Bun/Creatinine Ratio 24.9 (12.0-20.0); Calcium, Blood 8.5 mg/dL (8.5-10.1); Creatinine, Blood 0.56 mg/dL (0.40-1.00); Globulin, Blood 3.9 g/dL (2.2-4.0); Potassium, Blood 3.7 mmol/L (3.5-5.5); Total Protein, Blood 6.2 g/dL (6.4-8.2)
[2024-12-26] MEDS ORDERED: Sennosides 8.6 MG Tab PO PRN (06:30)
[2024-12-26 07:31] VITALS: BP 90/62
[2024-12-26] MEDS ORDERED: Cyanocobalamin 500 MCG Tab PO SCH (09:00)
[2024-12-26] MEDS ORDERED: Lactobacil 2-S.Thermo-Bifido 1 1 Cap PO SCH (09:00)
[2024-12-26] MEDS ORDERED: Insulin Glargine-Yfgn 100 Unit/mL 3 ML SYR SC SCH (09:00)
[2024-12-26] MEDS ORDERED: Misc. Tablet PO SCH (09:00)
[2024-12-26] MEDS ORDERED: Cranberry Extract 250MG W/30 MG Vitamin C Tab PO SCH (09:00)
[2024-12-26] MEDS ORDERED: HYDR1TAB94 PO (10:53)
[2024-12-26] MEDS ORDERED: NOVOLOG FL100 UNIT/3 SC (10:53)
[2024-12-26] MEDS ORDERED: Furosemide 20 MG Tab PO SCH (11:00)
[2024-12-26] MEDS ORDERED: Insulin Human Lispro 100 Units/ML 3ML Syringe SC SCH (11:30)
[2024-12-26 16:16] VITALS: BP 107/78
[2024-12-26] MEDS ORDERED: NS 250 ML IV PRN (17:05)
[2024-12-26 20:00] VITALS: BP 99/65
[2024-12-27 03:39] VITALS: BP 94/60
--- NOTE | 2024-12-27 04:02 | NUR ---
SHIFT SUMMARY PATIENT HAD NO ACUTE CHANGES. AXOX 3, BEDREST, AND MOSTLY NON-VERBAL. DENIES CHEST PAIN, SOB, AND N/V. VSS/AFEBRILE. ON 1L O2 NC. PIV INTACT. IV ABX INFUSED. TAKES MEDS WHOLE X ONE EACH WITH PUDDING. PUREWICK IN PLACE. GRANDMOTHER STAYS OVERNIGHT. SLEPT MOST OF THE SHIFT. CALL LIGHT IN REACH. BED IN LOWEST POSITION. WILL CONTINUE TO MONITOR UNTIL DAY SHIFT NURSE ASSUMES CARE.
[2024-12-27 06:23] LABS: Albumin, Blood 2.3 g/dL (3.4-5.0); Anion Gap 10 mmol/L (3-11); Blood Urea Nitrogen 17 mg/dL (8-24); CO2, Blood 29 mmol/L (21-32); Calcium, Blood 8.7 mg/dL (8.5-10.1); Chloride, Blood 107 mmol/L (98-108); Creatinine, Blood 0.61 mg/dL (0.40-1.00); Glomerular Filtration Rate 117 (60-); Glucose, Blood 124 mg/dL (70-99); Phosphorus, Blood 3.8 mg/dL (2.5-4.9); Sodium, Blood 142 mmol/L (136-145)
[2024-12-27 08:05] VITALS: BP 108/71
[2024-12-27 16:14] VITALS: BP 105/80
--- NOTE | 2024-12-27 19:37 | NUR ---
END OF SHIFT SUMMARY: A&Ox3-4. PLEASANT AND COOPERATIVE WITH CARE. CALLS APPROPRIATELY; ADVOCATES NEEDS c EYE MOVEMENTS AND HAND GESTURES. GRANDMA (GUARDIAN) AT BEDSIDE AND ADVOCATES FOR PATIENT. INCONTINENT OF BLADDER; PUREWICK IN PLACE. NOTIFIES STAFF WHEN NEEDS BEDPAN FOR BM. CONTINUOUS BiOx: MAINTAINING SPO2 >92% ON 2-3LPM/NC. [facility]. BEDBATH PROVIDED TODAY AFTER MEDIUM BOWEL MOVEMENT. BED IN LOWEST POSITION, CALL LIGHT WITHIN REACH, ALL NEEDS MET. REPORT TO ONCOMING NURSE.
[2024-12-27 20:01] VITALS: BP 100/71
[2024-12-28 03:11] VITALS: BP 100/68
--- NOTE | 2024-12-28 06:45 | NUR ---
CONFERENCE TRANSLATOR SUMMARY GRANDMOTHER AT BEDSIDE ALL NIGHT AND VERY HELPFUL ASSISTING STAFF TO COMMUNICATE WITH ARABELLA. NO ACUTE ISSUES OVERNIGHT. PT REQUIRING 2L O2 WITH SLEEP AND WHILE AWAKE, SATS 92-94% ON ROOM AIR. PUREWICK IN PLACE. PT WAS REPOSITIONED EVERY 2 HOURS THROUGHOUT THE NIGHT. SLIGHTLY TACHY 100-110. AFEBRILE BUT HAS NIGHT SWEATS. ORAL CARE DONE WITH SUCTION TOOTHBRUSH. CALL LIGHT WITHIN REACH.
[2024-12-28 07:25] VITALS: BP 102/72
--- NOTE | 2024-12-28 11:27 | NUR ---
ASSUMED CARE OF PATIENT. AWAKE DURING SHIFT-CHANGE REPORT. OXYGEN @ 2LPM/NC c CONTINUOUS BiOx IN PLACE. PUREWICK PATENT AND DRAINING TO SUCTION. GRANDMOTHERJOSE, AT BEDSIDE. MEDS WHOLE WITH CHOCOLATE PUDDING. MEDIUM BM.
[2024-12-28] MEDS ORDERED: Sennosides 8.6 MG Tab PO ONE (13:00)
[2024-12-28] MEDS ORDERED: VISBIOME 112.51 EACH PO (15:06)
[2024-12-28] MEDS ORDERED: FURO20 PO (15:06)
[2024-12-28] MEDS ORDERED: DOXY100 PO (15:15)
[2024-12-28 16:29] VITALS: BP 115/87
--- NOTE | 2024-12-28 17:07 | NUR ---
TRANSPORT ARRIVED AND PATIENT UNTIL TO SIT UP IN RECLINING WHEELCING. SHE IS WHEELCHAIR AT BASELINE, BUT HER PERSONAL WHEELCHAIR IS A VERY SPECIFIC TYPE. CALL TO [facility] WHO STATED SHE SHOULD BE TRANSFERRED VIA GURNEY. CHARGE NOTIFIED.
--- NOTE | 2024-12-28 18:26 | NUR ---
DISCHARGE SUMMARY: A&Ox3. PLEASANT AND COOPERATIVE WITH CARE. GRANDMA BACK TO FACILITY, SO PROVIDING FREQUENT CHECKS SHE IS UNABLE TO ADVOCATE NEEDS. INCONTINENT OF URINE; PUREWICK USED. CONTINENT OF BOWEL AND POINTS TO BATHROOM FOR BOWEL MOVEMENT. LBM TODAY. MEDS WHOLE c APPLESAUCE. NO TELE. NO C/O PAIN OR DISCOMFORT. DISCHARGED BACK TO [facility]. LEFT FLOOR c DC PACKET AND ALL BELONGINGS VIA OWN WHEELCHAIR, ESCORTED BY MEDICAL SUPERVISOR YARD, ONEL.
== END 2024-12-28 18:09 | DRG 871 ==
LOC: ER 18:59 → MEDS 22:17
PROVIDERS: Internal Medicine; Student in an Organized Health Care Education/Training Program; ADMIT Student in an Organized Health Care Education/Training Program
DX: A41.9 Sepsis, unspecified organism (principal); G92.8 Other toxic encephalopathy; J96.01 Acute respiratory failure with hypoxia; G82.20 Paraplegia, unspecified; E72.12 Methylenetetrahydrofolate reductase deficiency; N39.0 Urinary tract infection, site not specified; D64.9 Anemia, unspecified; E11.9 Type 2 diabetes mellitus without complications; Z86.73 Personal history of transient ischemic attack (TIA), and cerebral infarction without residual deficits; Z79.01 Long term (current) use of anticoagulants; Z88.2 Allergy status to sulfonamides; Z79.84 Long term (current) use of oral hypoglycemic drugs; Z79.4 Long term (current) use of insulin; Z86.14 Personal history of Methicillin resistant Staphylococcus aureus infection; Z87.440 Personal history of urinary (tract) infections; Z87.820 Personal history of traumatic brain injury
CPT/HCPCS: 0241U; 36415; 71045; 80053; 80069; 81001; 82248; 82947; 83605; 83735; 84100; 84145; 85025; 85610; 85730; 87040; 87086; 93005; 93010; 94761; 94762; 96374; 99285-25; A9270; J0696; J1815; J2185; J7050; J7120

== ENCOUNTER 2025-01-08 12:57 | Observation (INO) | payer OTHER ==
[~2025-01-08] VITALS: Ht 172.7 cm; Wt 83.9 kg
[~2025-01-08 12:57] MED LIST changes: +DOXY100 PO; +ELIQUIS5 M2 PO; +FURO20 PO; +Florastor250 MG; +HYDR1TAB94 PO; +Miconazole 2% Vaginal Cream 45 GM VAG SCH; +NOVOLOG FL100 UNIT/3 SC; +STEGLATRO5 MG; +XARELTO20 MG
[2025-01-08 14:35] LABS: BASOPHILS ABSOLUTE AUTO 0.05 K/mm3 (0.00-0.23); BASOPHILS PERCENT AUTO 0 % (0-2); EOSINOPHILS PERCENT AUTO 2 % (0-6); Hemoglobin 11.2 g/dL (11.5-16.0); IMMATURE GRAN ABSOLUTE AUTO 0.03 K/mm3 (0.00-0.10); IMMATURE GRAN PERCENT AUTO 0 % (0-1); LYMPHOCYTES ABSOLUTE AUTO 4.26 K/mm3 (0.84-5.20); LYMPHOCYTES PERCENT AUTO 36 % (21-46); MONOCYTES ABSOLUTE AUTO 0.63 K/mm3 (0.16-1.47); MONOCYTES PERCENT AUTO 5 % (4-13); Mean Corpuscular HGB 23.2 pg (26.0-34.0); Mean Corpuscular Volume 83 fL (80-100); NEUTROPHILS ABSOLUTE AUTO 6.62 K/mm3 (1.96-9.15); NEUTROPHILS PERCENT AUTO 56 % (41-73); Platelet Count 336 K/mm3 (150-400); RDW Coefficient Variation 19.1 % (11.7-14.2); RDW Standard Deviation 57.1 fL (35.1-46.3); Red Blood Cell Count 4.83 M/mm3 (3.80-5.20); White Blood Cell Count 11.79 K/mm3 (4.00-11.30)
[2025-01-08] MEDS ORDERED: Meropenem 1,000 MG in NS 100 ML IV ONE (15:20)
[2025-01-08 15:25] LABS: Albumin, Blood 3.3 g/dL (3.4-5.0); Albumin/Globulin Ratio 0.6 (0.8-1.8); Bilirubin, Total 0.3 mg/dL (0.1-1.0); Bun/Creatinine Ratio 43.5 (12.0-20.0); Calcium, Blood 9.2 mg/dL (8.5-10.1); Creatinine, Blood 0.83 mg/dL (0.40-1.00); Globulin, Blood 5.1 g/dL (2.2-4.0); Potassium, Blood 3.7 mmol/L (3.5-5.5); Total Protein, Blood 8.4 g/dL (6.4-8.2)
[2025-01-08] MEDS ORDERED: Lactated Ringer's 1,000 ML IV ONE ×2 (16:10→23:00)
[2025-01-08 16:32] LABS: Source, Urine Straight Cath
[2025-01-08 16:37] LABS: Appearance, Urine Cloudy (Clear); Bilirubin, Urine Neg (Neg); Blood, Urine 5+ (Neg); Color, Urine Yellow (P-Yellow); Glucose Qualitative, Urine 4+ (Neg); Ketones, Urine Neg (Neg); Leukocyte Esterase, Urine 3+ (Neg); Nitrite, Urine Neg (Neg); Protein, Urine 3+ (Neg); Specific Gravity, Urine 1.025 (1.003-1.022); Urobilinogen, Urine NORM (Normal)
[2025-01-08 16:49] LABS: White Blood Cells, Urine TNTC /hpf (0-5)
[2025-01-08 16:50] LABS: Calcium Oxalate Crystals Few /hpf; Yeast/Fungi Urine Mod /hpf
[2025-01-08 16:53] LABS: Bacteria Many /hpf; Squamous Epithelial Cells Few /hpf (Few)
[2025-01-08 17:47] LABS: Bacterial Vaginosis PCR Negative (NEGATIVE); Candida Group, PCR NOT DETECTED (NOT DETECT)
[2025-01-08 19:02] LABS: Influenza A, PCR NEGATIVE (NEGATIVE); Influenza B, PCR NEGATIVE (NEGATIVE); Resp Syncytial Virus, PCR NEGATIVE (NEGATIVE); SARS-Cov-2 (COVID-19) PCR, MMC NEGATIVE (NEGATIVE)
[2025-01-08 19:38] LABS: Candida glabrata-krusei, PCR DETECTED (NOT DETECT)
[2025-01-08] MEDS ORDERED: FLUCONAZOLE 100 MG/2.5 ML PO ONE (21:15)
[2025-01-08] MEDS ORDERED: Ondansetron HCl 2 MG / ML 2ML Vial IV PRN (22:40)
[2025-01-08] MEDS ORDERED: FLU VACC TS2024-25(6MOS UP)/PF 45 MCG/0.5 ML SYRINGE IM ONE (22:40)
[2025-01-08] MEDS ORDERED: HYDROcodone 5-APAP 325 TAB PO PRN (22:40)
[2025-01-08] MEDS ORDERED: Polyethylene Glycol 3350 17 gm PO PRN (22:40)
[2025-01-08] MEDS ORDERED: Acetaminophen 325 MG TABLET PO PRN (22:40)
[2025-01-08] MEDS ORDERED: Bisacodyl 10 MG Supp PR PRN (22:45)
[2025-01-08] MEDS ORDERED: Insulin Glargine-Yfgn 100 Unit/mL 3 ML SYR SC SCH (23:00)
[2025-01-09] MEDS ORDERED: Meropenem 1,000 MG in NS 100 ML IV SCH
[2025-01-09] MEDS ORDERED: Miconazole 2% Vaginal Cream 45 GM VAG SCH (00:21)
[2025-01-09 02:48] VITALS: BP 106/77
[2025-01-09 04:53] LABS: BASOPHILS ABSOLUTE AUTO 0.06 K/mm3 (0.00-0.23); BASOPHILS PERCENT AUTO 1 % (0-2); EOSINOPHILS ABSOLUTE AUTO 0.25 K/mm3 (0.00-0.68); EOSINOPHILS PERCENT AUTO 3 % (0-6); Hemoglobin 10.5 g/dL (11.5-16.0); IMMATURE GRAN ABSOLUTE AUTO 0.03 K/mm3 (0.00-0.10); IMMATURE GRAN PERCENT AUTO 0 % (0-1); LYMPHOCYTES ABSOLUTE AUTO 2.08 K/mm3 (0.84-5.20); LYMPHOCYTES PERCENT AUTO 23 % (21-46); MONOCYTES ABSOLUTE AUTO 0.49 K/mm3 (0.16-1.47); MONOCYTES PERCENT AUTO 6 % (4-13); Mean Corpuscular HGB 23.4 pg (26.0-34.0); Mean Corpuscular HGB Conc 27.6 g/dL (31.5-36.5); Mean Corpuscular Volume 85 fL (80-100); NEUTROPHILS ABSOLUTE AUTO 6.05 K/mm3 (1.96-9.15); NEUTROPHILS PERCENT AUTO 68 % (41-73); Platelet Count 296 K/mm3 (150-400); RDW Coefficient Variation 19.1 % (11.7-14.2); RDW Standard Deviation 58.9 fL (35.1-46.3); Red Blood Cell Count 4.49 M/mm3 (3.80-5.20); White Blood Cell Count 8.96 K/mm3 (4.00-11.30)
[2025-01-09 05:12] LABS: Albumin, Blood 3.1 g/dL (3.4-5.0); Albumin/Globulin Ratio 0.6 (0.8-1.8); Bilirubin, Total 0.3 mg/dL (0.1-1.0); Bun/Creatinine Ratio 46.9 (12.0-20.0); Calcium, Blood 8.9 mg/dL (8.5-10.1); Creatinine, Blood 0.7 mg/dL (0.40-1.00); Globulin, Blood 4.8 g/dL (2.2-4.0); Magnesium, Blood 2.6 mg/dL (1.6-2.4); Potassium, Blood 3.5 mmol/L (3.5-5.5); Total Protein, Blood 7.9 g/dL (6.4-8.2)
[2025-01-09] MEDS ORDERED: Insulin Human Lispro 100 Units/ML 3ML Syringe SC SCH (07:30)
[2025-01-09 07:58] VITALS: BP 101/70
[2025-01-09] MEDS ORDERED: Lactobacil 2-S.Thermo-Bifido 1 1 Cap PO SCH (09:00)
[2025-01-09] MEDS ORDERED: Apixaban 5 MG Tab PO SCH (09:00)
[2025-01-09] MEDS ORDERED: Furosemide 20 MG Tab PO SCH (09:00)
[2025-01-09] MEDS ORDERED: Docusate Sodium 100 MG Cap PO SCH (09:00)
[2025-01-09] MEDS ORDERED: Cyanocobalamin 500 MCG Tab PO SCH (09:00)
[2025-01-09] MEDS ORDERED: GLUCAGON EMERGEN1 MG SC (12:02)
[2025-01-09 12:44] VITALS: BP 93/70
[2025-01-09] MEDS ORDERED: DOCU100 PO (14:06)
[2025-01-09] MEDS ORDERED: VISBIOME 112.51 EACH PO (14:12)
[2025-01-09] MEDS ORDERED: MICO100S VAG (14:12)
[2025-01-09] MEDS ORDERED: NYSTATIN100000 U10 MT (14:13)
--- NOTE | 2025-01-09 14:17 | NUR ---
DISCHARGE CALLED [facility] TO CHECK AND SEE IF THEY HAD MERREM ABX IN THEIR E KIT. NURSE SAID THEY DIDN'T. FAXED OVER D/C ORDERS TO [facility] TO SEND TO THEIR PHARMACY. NURSE STATED THEY WILL HAVE IT BU TOMORROW MORNING. CONTACTED PT GRANDMOTHER ABOUT TRANSFER. AGREEABLE TO PLAN OF IN THE MORNING. DR VENEGAS AWARE. CARE ONGOING.
[2025-01-09 16:46] VITALS: BP 91/60
[2025-01-09 17:58] VITALS: BP 100/60
--- NOTE | 2025-01-09 17:58 | NUR ---
SHIFT SUMMARY: PATIENT ALERT, NONVERBAL AND USES O2 1-2L AT BASELINE. PATIENT HAS GREAT APPETITE, INCONTINENT OF BLADDER, ATTENDS AND PUREWICK IN PLACED. ORAL CARE AND REPOSITIONED T/O SHIFT. PATIENT RECEIVED IV ABX AND SCHEDULED MEDS PER EMAR. VITAL SIGNS REVIEWED. CALL LIGHT IN REACH. PATIENT GRANDMA AT BEDSIDE T/O THE DAY, DENIES ANY COMPLAINTS OR CONCERNED THIS SHIFT.
[2025-01-09 19:42] VITALS: BP 92/72
[2025-01-10 05:07] VITALS: BP 98/73
[2025-01-10 05:27] LABS: Calcium, Blood 7.5 mg/dL (8.5-10.1); Creatinine, Blood 0.52 mg/dL (0.40-1.00); Potassium, Blood 3.7 mmol/L (3.5-5.5)
[2025-01-10 08:17] VITALS: BP 96/69
[2025-01-10] MEDS ORDERED: Furosemide 20 MG Tab PO SCH (09:00)
--- NOTE | 2025-01-10 13:18 | NUR ---
SHIFT/DISCHARGE SUMMARY: PATIENT HAS HAD NO NEW CHANGES THIS SHIFT. PATIENT ALERT, NONVERBAL AT BASELINE. PATIENT RECEIVED SCHEDULED IV ABX/MEDS PER EMAR. VITAL SIGNS REVIEWED. PATIENT HAS GREAT APPETITE-1:1 FEEDER, INCONTINENT OF BLADDER, PUREWICK AND ATTENDS IN PLACED. ORAL CARE DONE AND REPOSITIONED. PATIENT IS DISCHARGING c POWERGLIDE TO [facility] FOR 6 DAYS IV ABX FOR UTI PER ORDER. PATIENT DISCHARGE BACK TO [facility] IN SNF SIDE. PATIENT DISCHARGE INSTRUCTIONS PACKET GIVEN TO JAVIER MARROQUIN. PATIENT AND GRANDMOTHER EDUCATED ON ADMITTING DX'S OF UTI, S/S, TX, NEW RX AND TO F/U c PCP. PATIENT AND GRANDMOTHER VERBALIZED UNDERSTANDING AND NO FURTHER QUESTIONS. ALL PERSONAL BELONGINGS WERE SENT c THE PATIENT. PATIENT LEFT THE ROOM AT 1314 TRANSPORTED VIA [employer] BACK TO [facility].
== END 2025-01-10 13:14 | disposition home or self-care (01) ==
LOC: ER 12:57 → ERHOLD 12:58 → MEDS 12:58
PROVIDERS: Internal Medicine; Student in an Organized Health Care Education/Training Program; ADMIT Student in an Organized Health Care Education/Training Program
DX: A41.9 Sepsis, unspecified organism (principal); N39.0 Urinary tract infection, site not specified; E87.0 Hyperosmolality and hypernatremia; B37.31 Acute candidiasis of vulva and vagina; E11.9 Type 2 diabetes mellitus without complications; D64.9 Anemia, unspecified; Z86.73 Personal history of transient ischemic attack (TIA), and cerebral infarction without residual deficits; Z88.2 Allergy status to sulfonamides; Z79.4 Long term (current) use of insulin; Z79.899 Other long term (current) drug therapy
CPT/HCPCS: 0241U; 36415; 51701; 71045; 80048; 80053; 81001; 81515; 82947; 83605; 83735; 84484; 85025; 85379; 87040; 87077; 87086; 87106; 87186; 93005; 93010; 96365; 96376; 99285-25; A9270; C1751; G0378; J1815; J2185; J7120

== ENCOUNTER 2025-02-06 16:14 | Inpatient (IN) | payer OTHER ==
[~2025-02-06] VITALS: Ht 167.6 cm; Wt 98.1 kg
[~2025-02-06 16:14] MED LIST changes: +DOCU100 PO; +GLUCAGON EMERGEN1 MG SC; +MICO100S VAG; -Miconazole 2% Vaginal Cream 45 GM VAG SCH; +NYSTATIN100000 U10 MT; +VISBIOME 112.51 EACH PO
[2025-02-06 17:02] LABS: BASOPHILS ABSOLUTE AUTO 0.05 K/mm3 (0.00-0.23); BASOPHILS PERCENT AUTO 0 % (0-2); EOSINOPHILS ABSOLUTE AUTO 0.44 K/mm3 (0.00-0.68); EOSINOPHILS PERCENT AUTO 4 % (0-6); Hemoglobin 11.8 g/dL (11.5-16.0); IMMATURE GRAN ABSOLUTE AUTO 0.03 K/mm3 (0.00-0.10); IMMATURE GRAN PERCENT AUTO 0 % (0-1); LYMPHOCYTES ABSOLUTE AUTO 4.69 K/mm3 (0.84-5.20); LYMPHOCYTES PERCENT AUTO 37 % (21-46); MONOCYTES ABSOLUTE AUTO 0.68 K/mm3 (0.16-1.47); MONOCYTES PERCENT AUTO 5 % (4-13); Mean Corpuscular HGB 21.8 pg (26.0-34.0); Mean Corpuscular HGB Conc 25.7 g/dL (31.5-36.5); Mean Corpuscular Volume 85 fL (80-100); Mean Platelet Volume 11.6 fL (9.1-12.4); NEUTROPHILS ABSOLUTE AUTO 6.75 K/mm3 (1.96-9.15); NEUTROPHILS PERCENT AUTO 53 % (41-73); Platelet Count 360 K/mm3 (150-400); RDW Coefficient Variation 21.7 % (11.7-14.2); Red Blood Cell Count 5.42 M/mm3 (3.80-5.20); White Blood Cell Count 12.64 K/mm3 (4.00-11.30)
[2025-02-06 17:05] LABS: Source, Urine Straight Cath
[2025-02-06 17:13] LABS: Appearance, Urine Cloudy (Clear); Bilirubin, Urine Neg (Neg); Blood, Urine 5+ (Neg); Glucose Qualitative, Urine 4+ (Neg); Ketones, Urine Neg (Neg); Leukocyte Esterase, Urine 3+ (Neg); Nitrite, Urine Neg (Neg); Protein, Urine 3+ (Neg); Urobilinogen, Urine NORM (Normal)
[2025-02-06 17:17] LABS: Albumin, Blood 3.3 g/dL (3.4-5.0); Albumin/Globulin Ratio 0.7 (0.8-1.8); Bilirubin, Total 0.2 mg/dL (0.1-1.0); Bun/Creatinine Ratio 47.4 (12.0-20.0); Calcium, Blood 9.3 mg/dL (8.5-10.1); Creatinine, Blood 0.72 mg/dL (0.40-1.00); Globulin, Blood 4.9 g/dL (2.2-4.0); Potassium, Blood 4.2 mmol/L (3.5-5.5); Total Protein, Blood 8.2 g/dL (6.4-8.2)
[2025-02-06 17:25] LABS: Color, Urine Pale Yellow (P-Yellow)
[2025-02-06 17:27] LABS: White Blood Cells, Urine TNTC /hpf (0-5)
[2025-02-06 17:28] LABS: Squamous Epithelial Cells Few /hpf (Few); Yeast/Fungi Urine Rare /hpf
[2025-02-06 17:29] LABS: Bacteria Mod /hpf
[2025-02-06] MEDS ORDERED: NS 1,000 ML IV SCH ×3 (17:35→18:30)
[2025-02-06] MEDS ORDERED: CefOXitin Sodium 1,000 MG in NS 50 ML IV ONE (17:35)
[2025-02-06] MEDS ORDERED: CefTRIAXone Sodium 1,000 MG in NS 100 ML IV ONE (17:35)
[2025-02-06] MEDS ORDERED: Meropenem 1,000 MG in NS 100 ML IV SCH (18:00)
[2025-02-06 18:15] LABS: CORONAVIRUS COVID-19 AG Negative (NEGATIVE); INFLUENZA A AG Negative (NEGATIVE); INFLUENZA B AG Negative (NEGATIVE)
[2025-02-06] MEDS ORDERED: Ondansetron HCl 2 MG / ML 2ML Vial IV PRN (18:20)
[2025-02-06] MEDS ORDERED: Acetaminophen 650 MG Supp PR PRN (18:20)
[2025-02-06] MEDS ORDERED: Sodium Chloride 0.45% 1,000 ML IV SCH (19:30)
[2025-02-06 23:00] VITALS: BP 94/66
[2025-02-06] MEDS ORDERED: Magnesium Hydroxide Conc 10 ML UDC PO PRN (23:45)
[2025-02-06] MEDS ORDERED: Polyethylene Glycol 3350 17 gm PO PRN (23:45)
[2025-02-07] VITALS (7 sets, daily range): BP systolic 86–123; BP diastolic 65–92
[2025-02-07] MEDS ORDERED: Bisacodyl 10 MG Supp PR PRN (00:25)
[2025-02-07 05:55] LABS: BASOPHILS ABSOLUTE AUTO 0.03 K/mm3 (0.00-0.23); BASOPHILS PERCENT AUTO 0 % (0-2); EOSINOPHILS ABSOLUTE AUTO 0.51 K/mm3 (0.00-0.68); EOSINOPHILS PERCENT AUTO 6 % (0-6); Hematocrit 39.3 % (33.0-51.0); Hemoglobin 10.3 g/dL (11.5-16.0); IMMATURE GRAN ABSOLUTE AUTO 0.01 K/mm3 (0.00-0.10); IMMATURE GRAN PERCENT AUTO 0 % (0-1); LYMPHOCYTES ABSOLUTE AUTO 1.96 K/mm3 (0.84-5.20); LYMPHOCYTES PERCENT AUTO 24 % (21-46); MONOCYTES ABSOLUTE AUTO 0.43 K/mm3 (0.16-1.47); MONOCYTES PERCENT AUTO 5 % (4-13); Mean Corpuscular HGB 22.2 pg (26.0-34.0); Mean Corpuscular HGB Conc 26.2 g/dL (31.5-36.5); Mean Corpuscular Volume 85 fL (80-100); Mean Platelet Volume 11.9 fL (9.1-12.4); NEUTROPHILS ABSOLUTE AUTO 5.34 K/mm3 (1.96-9.15); NEUTROPHILS PERCENT AUTO 64 % (41-73); Platelet Count 266 K/mm3 (150-400); RDW Coefficient Variation 21.7 % (11.7-14.2); RDW Standard Deviation 65.9 fL (35.1-46.3); Red Blood Cell Count 4.64 M/mm3 (3.80-5.20); White Blood Cell Count 8.28 K/mm3 (4.00-11.30)
[2025-02-07 06:16] LABS: Albumin, Blood 2.8 g/dL (3.4-5.0); Albumin/Globulin Ratio 0.7 (0.8-1.8); Bilirubin, Total 0.2 mg/dL (0.1-1.0); Bun/Creatinine Ratio 51.9 (12.0-20.0); Calcium, Blood 8.4 mg/dL (8.5-10.1); Creatinine, Blood 0.58 mg/dL (0.40-1.00); Globulin, Blood 3.9 g/dL (2.2-4.0); Potassium, Blood 3.6 mmol/L (3.5-5.5); Total Protein, Blood 6.7 g/dL (6.4-8.2)
[2025-02-07] MEDS ORDERED: Sodium Chloride 0.45% 1,000 ML IV SCH (06:40)
[2025-02-07] MEDS ORDERED: Insulin Human Lispro 100 Units/ML 3ML Syringe SC SCH (07:30)
[2025-02-07] MEDS ORDERED: Apixaban 5 MG Tab PO SCH (09:00)
[2025-02-07] MEDS ORDERED: Enoxaparin 40 MG/0.4 ML SYR SC SCH (09:00)
[2025-02-07] MEDS ORDERED: Lactobacil 2-S.Thermo-Bifido 1 1 Cap PO SCH (09:00)
[2025-02-07] MEDS ORDERED: Furosemide 20 MG Tab PO SCH (09:00)
[2025-02-07] MEDS ORDERED: Insulin Glargine-Yfgn 100 Unit/mL 3 ML SYR SC SCH (09:00)
[2025-02-07] MEDS ORDERED: Docusate Sodium 100 MG Cap PO SCH (09:00)
[2025-02-07] MEDS ORDERED: Sennosides 8.6 MG Tab PO SCH (09:00)
[2025-02-07 14:57] LABS: Percent Saturation 14.6 % (15.0-50.0)
[2025-02-07] MEDS ORDERED: Vancomycin HCL 1,500 MG in NS 250 ML IV ONE (15:05)
--- NOTE | 2025-02-07 18:21 | NUR ---
SHIFT SUMMARY: UNABLE TO ASSESS ORIENTATION D/T NON-VERBAL/SLURRED SPEECH. PLEASANT AND COOPERATIVE WITH CARE. PT HERE FOR SEPSIS FROM UTI. /2 INFUSING @150/HR PER DR. HAWLEY. NOTIFIED PROVIDER SODIUM LEVEL OF 152. PT CONTINENT/INCONTINENT. BEDPAN PREFERRED BY PT OVER PUREWICK. PT CURRENTLY ON 2L MAINTAINING SATS >92%. ON TELE RUNNING SINUS RHYHTM IN THE 80'S. FAMILY AT BEDSIDE T/O SHIFT ASSISTING WITH CARE. PT ON PUREE DIET WITH EXTREME THICKENED LIQUIDS. PT HAD 2 LARGE BM THIS SHIFT. URINE DARK AT BEGINNING OF SHIFT AND YELLOW BY END OF SHIFT. POSITIVE BLOOD CULTURE RECEIVED THIS SHIFT OF GRAM POSITIVE COCCI IN CLUSTERS. PROVIDER AND RESIDENT AWARE. PT STARTED ON VANCOMYCIN. CALL LIGHT IN REACH. BED IN LOWEST POSITION.
[2025-02-08] MEDS ORDERED: Vancomycin HCL 1,000 MG in NS 250 ML IV SCH
[2025-02-08 05:42] VITALS: BP 91/75
[2025-02-08 07:21] LABS: BASOPHILS ABSOLUTE AUTO 0.02 K/mm3 (0.00-0.23); BASOPHILS PERCENT AUTO 0 % (0-2); EOSINOPHILS ABSOLUTE AUTO 0.28 K/mm3 (0.00-0.68); EOSINOPHILS PERCENT AUTO 5 % (0-6); Hematocrit 36.8 % (33.0-51.0); Hemoglobin 9.9 g/dL (11.5-16.0); IMMATURE GRAN ABSOLUTE AUTO 0.02 K/mm3 (0.00-0.10); IMMATURE GRAN PERCENT AUTO 0 % (0-1); LYMPHOCYTES ABSOLUTE AUTO 1.41 K/mm3 (0.84-5.20); LYMPHOCYTES PERCENT AUTO 23 % (21-46); MONOCYTES ABSOLUTE AUTO 0.33 K/mm3 (0.16-1.47); MONOCYTES PERCENT AUTO 5 % (4-13); Mean Corpuscular HGB Conc 26.9 g/dL (31.5-36.5); Mean Corpuscular Volume 82 fL (80-100); Mean Platelet Volume 11.5 fL (9.1-12.4); NEUTROPHILS ABSOLUTE AUTO 4.15 K/mm3 (1.96-9.15); NEUTROPHILS PERCENT AUTO 67 % (41-73); Platelet Count 241 K/mm3 (150-400); RDW Coefficient Variation 21.9 % (11.7-14.2); RDW Standard Deviation 63.7 fL (35.1-46.3); Red Blood Cell Count 4.49 M/mm3 (3.80-5.20); White Blood Cell Count 6.21 K/mm3 (4.00-11.30)
[2025-02-08 07:36] LABS: Albumin, Blood 2.7 g/dL (3.4-5.0); Albumin/Globulin Ratio 0.7 (0.8-1.8); Bilirubin, Total 0.2 mg/dL (0.1-1.0); Bun/Creatinine Ratio 37.3 (12.0-20.0); Calcium, Blood 8.2 mg/dL (8.5-10.1); Creatinine, Blood 0.54 mg/dL (0.40-1.00); Globulin, Blood 3.8 g/dL (2.2-4.0); Potassium, Blood 4.1 mmol/L (3.5-5.5); Total Protein, Blood 6.5 g/dL (6.4-8.2)
[2025-02-08 07:51] VITALS: BP 112/85
[2025-02-08] MEDS ORDERED: NS 250 ML IV PRN (09:25)
[2025-02-08 11:16] VITALS: BP 94/68
[2025-02-08] MEDS ORDERED: Fluconazole 100 MG Tab PO SCH (14:00)
[2025-02-08 16:11] VITALS: BP 106/78
[2025-02-08 16:18] LABS: Vancomycin, Trough 33.9 ug/mL (5.0-10.0)
--- NOTE | 2025-02-08 18:25 | NUR ---
UNABLE TO FULLY ASSESS MENTATION D/T PT BEING MOSTLY NON-VERBAL WITH SLURRED SPEECH. PT ABLE TO ANSWER YES/NO QUESTIONS BY BLINKING ONCE FOR "YES" TWICE FOR "NO." PT PARAPLEGIC WITH SOME MOVEMENT OF HER LEFT ARM. PT GRANDMOTHER IN ROOM ACTIVLY ASSISTING WITH PT CARE. VANCO TROUGH WAS 33.9, VANCO BEING HELD UNTIL TOMORROW PER PHARMACY. VSS, 2L O2 VIA NC, SR IN 70S ON TELE. PT DENIES ABDOMINAL PAIN, 2 LG BM THIS SHIFT.
[2025-02-08 19:27] VITALS: BP 98/73
[2025-02-08 23:32] VITALS: BP 102/78
[2025-02-09 03:18] VITALS: BP 101/71
--- NOTE | 2025-02-09 04:22 | NUR ---
MALINA HELD PER RX. PT SLEPT WELL WITHOUT ANY ACUTE NEEDS. TELE IN PLACE. 2L OX. INCONTINENT OF URINE, BRIEFS CHANGED PRN. AKILA REMAINS AT BEDSIDE
[2025-02-09 07:55] VITALS: BP 104/79
[2025-02-09 08:21] LABS: BASOPHILS ABSOLUTE AUTO 0.03 K/mm3 (0.00-0.23); BASOPHILS PERCENT AUTO 0 % (0-2); EOSINOPHILS ABSOLUTE AUTO 0.33 K/mm3 (0.00-0.68); EOSINOPHILS PERCENT AUTO 4 % (0-6); Hemoglobin 10.4 g/dL (11.5-16.0); IMMATURE GRAN ABSOLUTE AUTO 0.02 K/mm3 (0.00-0.10); IMMATURE GRAN PERCENT AUTO 0 % (0-1); LYMPHOCYTES ABSOLUTE AUTO 2.03 K/mm3 (0.84-5.20); LYMPHOCYTES PERCENT AUTO 26 % (21-46); MONOCYTES ABSOLUTE AUTO 0.42 K/mm3 (0.16-1.47); MONOCYTES PERCENT AUTO 5 % (4-13); Mean Corpuscular HGB 22.2 pg (26.0-34.0); Mean Corpuscular HGB Conc 27.4 g/dL (31.5-36.5); Mean Corpuscular Volume 81 fL (80-100); Mean Platelet Volume 11.6 fL (9.1-12.4); NEUTROPHILS ABSOLUTE AUTO 4.88 K/mm3 (1.96-9.15); NEUTROPHILS PERCENT AUTO 63 % (41-73); Platelet Count 262 K/mm3 (150-400); RDW Coefficient Variation 21.9 % (11.7-14.2); RDW Standard Deviation 63.4 fL (35.1-46.3); Red Blood Cell Count 4.68 M/mm3 (3.80-5.20); White Blood Cell Count 7.71 K/mm3 (4.00-11.30)
[2025-02-09 08:41] LABS: Alanine Aminotransfer (ALT/SGP 21 U/L (12-78); Albumin, Blood 2.8 g/dL (3.4-5.0); Albumin/Globulin Ratio 0.7 (0.8-1.8); Alk Phos 100 U/L (50-136); Anion Gap 7 mmol/L (3-11); Aspartate Aminotrans (AST/SGOT 19 U/L (12-37); Bilirubin, Total 0.2 mg/dL (0.1-1.0); Blood Urea Nitrogen 15 mg/dL (8-24); Bun/Creatinine Ratio 28.9 (12.0-20.0); CO2, Blood 30 mmol/L (21-32); Calcium, Blood 8.9 mg/dL (8.5-10.1); Chloride, Blood 109 mmol/L (98-108); Creatinine, Blood 0.52 mg/dL (0.40-1.00); Globulin, Blood 4.2 g/dL (2.2-4.0); Glomerular Filtration Rate 122 (60-); Glucose, Blood 348 mg/dL (70-99); Potassium, Blood 4.3 mmol/L (3.5-5.5); Sodium, Blood 142 mmol/L (136-145); Vancomycin, Random 14.8 ug/mL
[2025-02-09] MEDS ORDERED: Vancomycin HCL 1,500 MG in NS 250 ML IV SCH (10:00)
[2025-02-09 11:28] VITALS: BP 109/87
[2025-02-09 16:13] VITALS: BP 93/70
[2025-02-09] MEDS ORDERED: Insulin Human Lispro 100 Units/ML 3ML Syringe SC SCH (16:30)
--- NOTE | 2025-02-09 19:16 | NUR ---
SHIFT SUMMARY PT IS A/O TO FAMILY AND SELF. NO ACUTE CHANGES THROUGHOUT THIS SHIFT. FAMILY IS VERY ACTIVE IN THE PT'S CARE. CONTINUING IV ANTIBIOTICS. MEDS CRUSHED IN PUDDING. ON TELE RUNNING NORMAL SINUS RYTHYM. PT ON 1-2L O2 PRN, RA AT BASELINE, SATS >90%. PT ON BEDREST, USING THE BEDPAN.
[2025-02-09 20:45] VITALS: BP 98/77
[2025-02-10 00:16] VITALS: BP 101/68
--- NOTE | 2025-02-10 03:23 | NUR ---
SHIFT SUMMARY PATIENT HAS APPEARED TO SLEEP COMFORTABLY DURING THIS SHIFT. HER GRANDMA HAS REMAINED AT THE BEDSIDE. VITAL SIGNS HAVE BEEN STABLE. IV ABX HAVE INFUSED WITHOUT COMPLICATIONS. SAFETY PRECAUTIONS ARE BEING MAINTAINED.
[2025-02-10 04:03] VITALS: BP 110/55
[2025-02-10 06:59] LABS: BASOPHILS ABSOLUTE AUTO 0.04 K/mm3 (0.00-0.23); BASOPHILS PERCENT AUTO 1 % (0-2); EOSINOPHILS PERCENT AUTO 4 % (0-6); Hematocrit 38.7 % (33.0-51.0); Hemoglobin 10.6 g/dL (11.5-16.0); IMMATURE GRAN ABSOLUTE AUTO 0.03 K/mm3 (0.00-0.10); IMMATURE GRAN PERCENT AUTO 0 % (0-1); LYMPHOCYTES ABSOLUTE AUTO 2.31 K/mm3 (0.84-5.20); LYMPHOCYTES PERCENT AUTO 32 % (21-46); MONOCYTES ABSOLUTE AUTO 0.31 K/mm3 (0.16-1.47); MONOCYTES PERCENT AUTO 4 % (4-13); Mean Corpuscular HGB 22.4 pg (26.0-34.0); Mean Corpuscular HGB Conc 27.4 g/dL (31.5-36.5); Mean Corpuscular Volume 82 fL (80-100); NEUTROPHILS PERCENT AUTO 58 % (41-73); Platelet Count 226 K/mm3 (150-400); RDW Coefficient Variation 22.3 % (11.7-14.2); RDW Standard Deviation 64.2 fL (35.1-46.3); Red Blood Cell Count 4.73 M/mm3 (3.80-5.20); White Blood Cell Count 7.19 K/mm3 (4.00-11.30)
[2025-02-10 07:00] LABS: Mean Platelet Volume 11.5 fL (9.1-12.4)
[2025-02-10 07:19] LABS: Albumin, Blood 2.6 g/dL (3.4-5.0); Albumin/Globulin Ratio 0.6 (0.8-1.8); Bilirubin, Total 0.2 mg/dL (0.1-1.0); Bun/Creatinine Ratio 29.2 (12.0-20.0); Calcium, Blood 8.9 mg/dL (8.5-10.1); Creatinine, Blood 0.45 mg/dL (0.40-1.00); Globulin, Blood 4.2 g/dL (2.2-4.0); Potassium, Blood 4.5 mmol/L (3.5-5.5); Total Protein, Blood 6.8 g/dL (6.4-8.2)
[2025-02-10] MEDS ORDERED: Insulin Human Lispro 100 Units/ML 3ML Syringe SC SCH (07:30)
[2025-02-10 07:57] VITALS: BP 107/75
[2025-02-10] MEDS ORDERED: Insulin Glargine-Yfgn 100 Unit/mL 3 ML SYR SC SCH (09:00)
[2025-02-10 17:02] VITALS: BP 119/83
--- NOTE | 2025-02-10 17:19 | NUR ---
PT CBG 374. DR PANDYA NOTIFIED, PER MD HA TO GIVE THE HIGH SLIDING SCALE DOSE OF 12 UNITS WITH NO ADDITIONAL COVERAGE.
--- NOTE | 2025-02-10 19:16 | NUR ---
NO ACUTE CHANGES THIS SHIFT. PT IS AT BASELINE MENTATION, ABLE TO COMMUNICATE WITH BLINKING. CONT WITH BEDPAN. GRANDMOTHER HAS DONE MAJORITY OF CARES THIS SHIFT SHE IS ABLE TO UNDERSTAND PT NEEDS BEST. GRANDMOTHER WAS ASSISTED BY STAFF FOR SOME CARES. GRANDMOTHER CALLS APPROPRIATELY WHEN HELP IS NEEDED. PLAN IS TO D/C BACK TO [facility] WHEN CULTURES TEST NEGATIVE. IV ANTIBIOTICS CONTINUED. CBG TREATED PER EMAR. AWARE OF LAST CBG RESULT.
[2025-02-10 19:44] VITALS: BP 117/83
--- NOTE | 2025-02-10 21:51 | NUR ---
NOTIFIED OF CBG, NO NEW ORDERS
[2025-02-11 03:41] VITALS: BP 105/74
--- NOTE | 2025-02-11 04:44 | NUR ---
PT A&O X2 ANSWERS QUESTIONS WITH EYE'S OR MOVING HEAD. PT VS WNL, UOP WNL WITH BOTH CONTINENT AND INCONTINENT EPISODES. IVABX ADMINISTERED CRUSHED WITH PUDDING. PT CBG HIGH AND NO INSULIN ADMINISTERED PER MD. PT ON O2 @1L/NC. BM ON 02/10. AWAITING CX'S WILL D/C BACK TO SNF.
[2025-02-11 06:48] LABS: BASOPHILS ABSOLUTE AUTO 0.03 K/mm3 (0.00-0.23); BASOPHILS PERCENT AUTO 0 % (0-2); EOSINOPHILS ABSOLUTE AUTO 0.33 K/mm3 (0.00-0.68); EOSINOPHILS PERCENT AUTO 5 % (0-6); Hematocrit 36.1 % (33.0-51.0); IMMATURE GRAN ABSOLUTE AUTO 0.03 K/mm3 (0.00-0.10); IMMATURE GRAN PERCENT AUTO 0 % (0-1); LYMPHOCYTES ABSOLUTE AUTO 2.45 K/mm3 (0.84-5.20); LYMPHOCYTES PERCENT AUTO 34 % (21-46); MONOCYTES ABSOLUTE AUTO 0.37 K/mm3 (0.16-1.47); MONOCYTES PERCENT AUTO 5 % (4-13); Mean Corpuscular HGB 22.3 pg (26.0-34.0); Mean Corpuscular HGB Conc 27.7 g/dL (31.5-36.5); Mean Corpuscular Volume 81 fL (80-100); Mean Platelet Volume 10.7 fL (9.1-12.4); NEUTROPHILS ABSOLUTE AUTO 3.96 K/mm3 (1.96-9.15); NEUTROPHILS PERCENT AUTO 55 % (41-73); Platelet Count 269 K/mm3 (150-400); RDW Coefficient Variation 22.7 % (11.7-14.2); RDW Standard Deviation 64.4 fL (35.1-46.3); Red Blood Cell Count 4.48 M/mm3 (3.80-5.20); White Blood Cell Count 7.17 K/mm3 (4.00-11.30)
[2025-02-11 07:10] LABS: Albumin, Blood 2.5 g/dL (3.4-5.0); Albumin/Globulin Ratio 0.6 (0.8-1.8); Bilirubin, Total 0.2 mg/dL (0.1-1.0); Bun/Creatinine Ratio 28.2 (12.0-20.0); Calcium, Blood 8.9 mg/dL (8.5-10.1); Creatinine, Blood 0.5 mg/dL (0.40-1.00); Globulin, Blood 3.9 g/dL (2.2-4.0); Potassium, Blood 4.2 mmol/L (3.5-5.5); Total Protein, Blood 6.4 g/dL (6.4-8.2)
[2025-02-11 07:36] VITALS: BP 102/74
[2025-02-11] MEDS ORDERED: Insulin Glargine-Yfgn 100 Unit/mL 3 ML SYR SC SCH (09:00)
--- NOTE | 2025-02-11 12:27 | NUR ---
NOTE: REPORT GIVEN [facility], KULWANT RODRIGUEZ. NO FURTHER QUESTIONS FOR THIS NURSE AT THIS TIME.
[2025-02-11] MEDS ORDERED: HUMALOG KW100 UNIT/1 (13:04)
[2025-02-11] MEDS ORDERED: FLUC200 PO (13:04)
--- NOTE | 2025-02-11 14:19 | NUR ---
PT DISCHARGED THE PT WAS DISCHARGED BACK TO HER CARE FACILITY. THE PT WAS TRANSFERED VIA GURNEY ACCOMPANIED BY [facility]. BELONGINGS WERE RELEASED TO THE GRANDMOTHER. PT WAS AWAKE AND ALERT AT THE TIME OF DC
== END 2025-02-11 14:05 | DRG 872 ==
LOC: ER 16:14 → MEDS 18:16
PROVIDERS: Student in an Organized Health Care Education/Training Program; ADMIT Internal Medicine
DX: A41.02 Sepsis due to Methicillin resistant Staphylococcus aureus (principal); E72.12 Methylenetetrahydrofolate reductase deficiency; N39.0 Urinary tract infection, site not specified; E87.1 Hypo-osmolality and hyponatremia; E87.0 Hyperosmolality and hypernatremia; R65.20 Severe sepsis without septic shock; E11.9 Type 2 diabetes mellitus without complications; Z96.0 Presence of urogenital implants; K59.09 Other constipation; B37.31 Acute candidiasis of vulva and vagina; R09.02 Hypoxemia; Z79.899 Other long term (current) drug therapy; Z79.4 Long term (current) use of insulin; Z79.01 Long term (current) use of anticoagulants; Z88.2 Allergy status to sulfonamides; Z79.85 Long-term (current) use of injectable non-insulin antidiabetic drugs; Z79.84 Long term (current) use of oral hypoglycemic drugs; Z87.820 Personal history of traumatic brain injury; Z87.442 Personal history of urinary calculi; Z86.14 Personal history of Methicillin resistant Staphylococcus aureus infection; Z98.890 Other specified postprocedural states; Z90.89 Acquired absence of other organs
CPT/HCPCS: 36415; 71045; 80053; 80202; 81001; 82728; 82947; 83036; 83540; 83550; 83605; 83690; 83880; 85025; 87040; 87086; 87428-QW; 93005; 93010; 93306; 96374; 99285-25; A9270; J0694; J1815; J2185; J3370; J7030; J7050; P9612